=== PATIENT | female | born 1965 | race Caucasian/White ===

== ENCOUNTER → 2017-11-08 17:08 | Outpatient (REF) | payer BC, SELFPAY | LOC: NCHCN 17:08 | PROVIDERS: PCP Family Medicine; Visit Provider Physician Assistant Medical | DX: R30.0 Dysuria (principal) | CPT/HCPCS: 87086 ==

== ENCOUNTER 2017-12-08 01:54 | Outpatient (CLI) | payer MEDICAID, SELFPAY ==
--- NOTE | 2017-12-08 07:42 | DI.US_ITS ---
SYMPTOMS/DIAGNOSIS: POSTMENOPAUSAL BLEEDING, N95.0, UTERINE TENDERNESS, N94.9, EVAL ENDOMETRIUM PELVIC ULTRASOUND: Transabdominal and transvaginal exams were performed. Comparison is made with CT of the abdomen and pelvis dated . There is uterus is retroverted and measures 8.4 x 4.2 x 5.8 cm. Multiple fibroids are again noted. The overall uterine size has decreased when compared with the previous exam. The largest fibroid measures 2.7 cm in greatest dimension. There is endometrial thickening and mild endometrial irregularity. The endometrium measures 9 mm in maximal thickness. No focal abnormality is identified in the endometrium. The ovaries are normal in size. There is a 1.8 cm cyst on the left ovary which appears simple. No free fluid or hydronephrosis is seen. IMPRESSION: 1. Abnormally thickened mildly heterogeneous endometrium. 2. Multiple uterine fibroids with overall decrease when compared with a CT from 2013.
== END 2017-12-08 02:14 ==
PROVIDERS: PCP Family Medicine; Visit Provider Nurse Practitioner Women's Health
DX: N95.0 Postmenopausal bleeding (principal); D25.9 Leiomyoma of uterus, unspecified; R93.8 Abnormal findings on diagnostic imaging of other specified body structures
CPT/HCPCS: 76830; 76856

== ENCOUNTER 2017-12-22 15:31 | Outpatient (CLI) | payer MEDICAID, SELFPAY ==
[2017-12-22 16:57] LABS: HCT 43.4 % (36.0-46.0); HGB 14.1 g/dL (12.0-15.5); Mean Corp. HGB Concentration 32.5 g/dL (32.0-36.0); Mean Corpuscular Hemoglobin 28.6 pg (27.0-33.0); Mean Platelet Volume 10.2 fL (8.0-11.0); Platelet Count 244 x1000/uL (130-400); RBC 4.93 m/cumm (4.00-5.20); RBC Distribution Width 13.6 % (11.7-14.6)
== END 2017-12-22 15:51 ==
PROVIDERS: PCP Family Medicine; Visit Provider Obstetrics & Gynecology
DX: Z01.818 Encounter for other preprocedural examination (principal)
CPT/HCPCS: 36415; 85027

== ENCOUNTER 2017-12-27 06:12 | Day surgery (SDC) | payer MEDICAID, SELFPAY ==
[2017-12-27 06:28] VITALS: BP 116/74; PULSE 66; RESP 18; TEMP 36.8; O2SAT 98
[2017-12-27 06:42] VITALS: BP 116/74; PULSE 66; RESP 18; TEMP 36.8; O2SAT 98
[2017-12-27] MEDS: Lactated Ringers 1,000 ML 150 ML IV (06:56)
[2017-12-27] MEDS: Bupivacaine 0.5% Pres-Free 30 ML VIAL (08:17)
--- NOTE | 2017-12-27 08:22 | ENDOMET_PTH ---
PATIENT: Jennifer Whitfield LOC: [facility] U#:[id number] AGE/SX: 52/F ROOM: RE12/27/[address]: Marcy Chris : 1965 BED: DIS: 12/27/2017 SPEC #: [id number] RECD: 12/27/17 12:50 STATUS: EDUARDO REDanielito #: [id number] YESSENIA: 12/27/17 08:[address]: Marcy Chris DEPT: Surgical Specimen RECD BY: Cecilia Garcia ENTERED: 12/27/17 12:51 SP TYPE: Endomet OTHR DR: Nancy Jackson V Tissues: 1 - ENDOMETRIUM BX/GREGORY Procedures: GROSS AND MICRO LEVEL 4 Comments: [id number]
[2017-12-27 09:00] VITALS: BP 104/64; PULSE 61; RESP 16; TEMP 35.7; O2SAT 97
--- NOTE | 2017-12-27 09:08 | W.PM.DSUDISC ---
Discharge Plan Disposition Patient Disposition: HOME Condition: Good Discharge Details Attending Provider: Marcy Chris Primary Care Provider: Nancy Jackson V Home Meds and New Rx's Prescriptions: No Action zolpidem [Ambien] 5 MG tablet 5 mg PO HS RF: 0 gabapentin 100 MG capsule 100 mg PO HS RF: 0 cetirizine 10 MG tablet,chewable 10 mg PO DAILY RF: 0 diazepam 5 MG tablet 5 mg PO DAILY PRNRF: 0 acyclovir 200 MG capsule 1 cap PO BID RF: 0 bupropion HCl 150 MG tablet extended release 24 hr 1 tab PO DAILY RF: 0 polyethylene glycol 3350 17 GM powder in packet 17 gm PO DAILY AM PRNQty: 30 RF: 6 rizatriptan [Maxalt] 10 MG tablet 10 mg PO PRN RF: 0 Discharge Instructions Additional Instructions: DSU RECREATIONAL THERAPY AIDE Stand Alone Forms: DSU Post Gynecology Surgery Activity:: Activity as Tolerated Shower/Bathe:: 24 hours Diet:: As Tolerated
--- NOTE | 2017-12-27 09:12 | PDOC.DSDIS_ITS ---
Discharge Plan Disposition Patient Disposition: HOME Condition: Good Discharge Details Attending Provider: Marcy Chris Primary Care Provider: Nancy Jackson V Home Meds and New Rx's Prescriptions: No Action zolpidem [Ambien] 5 MG tablet 5 mg PO HS RF: 0 gabapentin 100 MG capsule 100 mg PO HS RF: 0 cetirizine 10 MG tablet,chewable 10 mg PO DAILY RF: 0 diazepam 5 MG tablet 5 mg PO DAILY PRNRF: 0 acyclovir 200 MG capsule 1 cap PO BID RF: 0 bupropion HCl 150 MG tablet extended release 24 hr 1 tab PO DAILY RF: 0 polyethylene glycol 3350 17 GM powder in packet 17 gm PO DAILY AM PRNQty: 30 RF: 6 rizatriptan [Maxalt] 10 MG tablet 10 mg PO PRN RF: 0 Discharge Instructions Additional Instructions: DSU TAX CONSULTANT Stand Alone Forms: DSU Post Gynecology Surgery Activity:: Activity as Tolerated Shower/Bathe:: 24 hours Diet:: As Tolerated
--- NOTE | 2017-12-27 14:30 | ROE_ITS ---
DATE OF PROCEDURE: December 27, 2017 PREOPERATIVE DIAGNOSIS: Post-menopausal bleeding. POSTOPERATIVE DIAGNOSIS: Same. PROCEDURE: D and C. SURGEON: Marcy Chris M.D. ANESTHESIA: Monitored Anesthesia Care and local. ESTIMATED BLOOD LOSS: Minimal. COMPLICATIONS: None. SPECIMENS: Endometrial curetting. PROCEDURE: After induction of anesthesia, the patient was prepared and draped in the dorsal lithotom y position. It took several tries to get the right speculum to be able to visualize the cervix. The cervix was grasped with the tenaculum. The cervical os was very stenotic; starting with the smalles t dilator, dilation attempts were made. I did see a lot of bloody mucus being discharged from the ut erus and cervix. I am not sure that the uterus was reached; however with cervical dilation, sharp cu rettage was done yielding a small amount of tissue. Repeated attempts at dilating the cervix further were not successful. Due to the risk of uterine perforation it was not pushed. Following the proce dure the tenaculum was removed and hemostasis was noted. Sponge and instrument counts were correct. The patient tolerated the procedure well and was returned to Day Surgery with vital signs stable.
== END 2017-12-27 09:50 | disposition home or self-care (01) ==
PROVIDERS: PCP Family Medicine; Visit Provider Obstetrics & Gynecology
PROC: (CPT 58120; principal; 2017-12-27 07:30)
DX: N95.0 Postmenopausal bleeding (principal)
CPT/HCPCS: 58120; 88305; J0131; J1100; J2250; J2405

== ENCOUNTER 2018-05-01 00:29 | Outpatient (CLI) | payer OTHER, SELFPAY ==
--- NOTE | 2018-05-01 14:58 | DI.MAMMO_ITS ---
SYMPTOMS/DIAGNOSIS: SCREENING, Z12.31, PREVENTATIVE CARE, Z00.00 MAMMOGRAM: Mammograms were interpreted according to the usual protocol including computer analysis with CAD system, tomosynthesis and C view imaging. Comparison is made with exams from 2014 through 2017. The breasts are composed of scattered fibroglandular densities, breast density Category B. No suspicious masses or suspicious microcalcifications are seen. There has been no significant change. IMPRESSION: Category I B, negative mammogram. Yearly screening mammography is recommended. [facility] ASSESSMENT OF FINDINGS: Negative. Category 1. Patient will receive a letter notifying them of these results. BI-RADS category B. There are scattered areas of fibroglandular density.
== END 2018-05-01 00:49 ==
PROVIDERS: PCP Family Medicine; Visit Provider Family Medicine
DX: Z12.31 Encounter for screening mammogram for malignant neoplasm of breast (principal)
CPT/HCPCS: 77063; 77067

== ENCOUNTER 2018-11-30 00:44 | Outpatient (CLI) | payer OTHER, SELFPAY ==
--- NOTE | 2018-11-30 14:00 | DI.COMBO_ITS ---
SYMPTOM/DIAGNOSIS: DIAGNOSTIC, RT BREAST PAIN, N64.4,RECENT MASTITIS, FAMILY H/O BREAST CA, PURPLISH DISCOLORATION RIGHT MAMMOGRAM AND RIGHT BREAST ULTRASOUND: Mammograms were interpreted according to the usual protocol including computer analysis with CAD system, tomosynthesis and C view imaging. Comparison is made with prior examinations. Breast density, Category B. No suspicious masses or microcalcifications are seen. The skin and axilla are unremarkable. Right breast ultrasound was performed. No suspicious cystic or solid masses are seen sonographically. IMPRESSION: No evidence for malignancy. Yearly mammography is recommended. Category 1. The findings were discussed with the patient and her family on the date of the examination. [facility] ASSESSMENT OF FINDINGS: Negative. Category 1. Patient will receive a letter notifying them of these results. BI-RADS category B. There are scattered areas of fibroglandular density.
== END 2018-11-30 01:04 ==
PROVIDERS: PCP Family Medicine; Visit Provider Nurse Practitioner Family
DX: N64.4 Mastodynia (principal); N61.0 Mastitis without abscess; Z80.3 Family history of malignant neoplasm of breast; N64.59 Other signs and symptoms in breast
CPT/HCPCS: 76642; 77061; 77065; G0279

== ENCOUNTER 2019-10-18 09:29 | Outpatient (REF) | payer OTHER, SELFPAY ==
[2019-10-18 20:27] LABS: Calculated LDL 125 mg/dL (<100); Cholesterol 188 mg/dL (<200); Glucose 92 mg/dL (74-106); HDL Cholesterol 46 mg/dL (40-60); TSH 2.15 uIU/mL (0.36-3.74); Triglyceride 85 mg/dL (<150)
== END 2019-10-18 09:49 ==
LOC: NCHCN 09:29
PROVIDERS: PCP Family Medicine; Visit Provider Family Medicine
DX: Z00.00 Encounter for general adult medical examination without abnormal findings (principal)
CPT/HCPCS: 80061; 82947; 84443

== ENCOUNTER 2019-12-13 02:22 | Outpatient (CLI) | payer OTHER, SELFPAY ==
--- NOTE | 2019-12-13 07:43 | DI.MAMMO_ITS ---
EXAM: MAMMO SCREENING CLINICAL HISTORY: SCREENING, [facility],Z00.00 TECHNIQUE: Mammograms were interpreted according to the usual protocol including computer analysis w [employer] CAD system, tomosynthesis and C-view imaging. COMPARISON: 2010 through 2018 FINDINGS: The breasts are composed of scattered fibroglandular densities, Breast Density category B. No suspicious masses or suspicious microcalcifications are seen. No skin thickening or abnormal axillary lymph nodes are seen. There has been no significant change from prior exams. IMPRESSION: BI-RADS Category 1, Negative mammogram Yearly screening mammography is recommended. Breast Density - Category B, scattered fibroglandular densities. A negative radiographic report should not delay biopsy if a dominant or clinically suspicious mass is present. Up to ten percent of cancers are not identified on mammography. A negative report may reinforce clinical impression. Adenosis and dense breasts may obscure an underlying neoplasm. False positive reports average 6 to 10%. Patient will receive a letter notifying them of these results.
== END 2019-12-13 02:42 ==
PROVIDERS: PCP Family Medicine; Visit Provider Family Medicine
DX: Z12.31 Encounter for screening mammogram for malignant neoplasm of breast (principal); R92.2 Inconclusive mammogram
CPT/HCPCS: 77063; 77067

== ENCOUNTER 2020-11-25 11:40 | Outpatient (REF) | payer OTHER, SELFPAY ==
[2020-11-25 19:41] LABS: Hemoglobin A1C 5.8 % (<5.7)
[2020-11-25 19:46] LABS: Anion Gap 7.9 mmol/L (3-11); BUN 25 mg/dL (7-18); CO2 27.1 mmol/L (21.0-32.0); CREATININE 0.7 mg/dL (0.55-1.02); Calcium 9.1 mg/dL (8.5-10.1); Chloride 108 mmol/L (98-107); Glucose 88 mg/dL (74-106); Potassium 4.8 mmol/L (3.5-5.1); Sodium 143 mmol/L (136-145); TSH (W/Ref FT4) 2.17 uIU/mL (0.36-3.74)
[2020-11-27 10:16] LABS: Varicella IgG Antibody Positive (See Note)
== END 2020-11-25 11:41 | disposition home or self-care (01) ==
LOC: NCHCN 11:40
PROVIDERS: PCP Family Medicine; Visit Provider Family Medicine
DX: Z00.00 Encounter for general adult medical examination without abnormal findings (principal); R63.1 Polydipsia; Z11.59 Encounter for screening for other viral diseases
CPT/HCPCS: 80048; 86787; 83036; 84443

== ENCOUNTER 2020-12-17 01:49 | Outpatient (CLI) | payer OTHER, SELFPAY ==
--- NOTE | 2020-12-17 | DI.MAMMO_ITS ---
Exam(s) MAMMO SCREENING EXAM: MAMMO SCREENING CLINICAL HISTORY: SCREENING, [facility], Z00.00 TECHNIQUE: Bilateral full field digital CC and MLO mammographic images were obtained with 3D tomosyn thesis and utilizing computer aided detection (CAD). COMPARISON: Available for comparison. FINDINGS: Masses/Architectural Distortion: None seen. There has been no change in appearance of the well-circum scribed left retroareolar nodule. Microcalcifications: No suspicious pleomorphic-type are seen. Skin Thickening/Nipple Retraction: None. IMPRESSION: 1. No significant interval change with no specific features of malignancy noted. 2. Unless there is more urgent need, screening mammography is recommended, as per [employer] guidelines. BI-RADS Category 1 - Negative Breast Density - Category B - Scattered areas of fibroglandular density Breast density category C or D implies that the patient has dense breast tissue. Dense breast tissue is very common and is not abnormal but dense breast tissue can make it harder to find cancer on a ma mmogram. Also, dense breast tissue may increase their breast cancer risk. This information about the result of the mammogram report was provided to the patient to raise their awareness. Use this report when you speak with the patient about their risks for breast cancer, which includes their family hist ory. At that time, you may recommend for more screening tests (Ultrasound or MRI) as they might be us eful based on their risk. A negative radiographic report should not delay biopsy if a dominant or clinically suspicious mass is present. Up to ten percent of cancers are not identified on mammography. A negative report may reinforce clinical impression. Adenosis and dense breasts may obscure an underlying neoplasm. False positive reports average 6 to 10%. Patient will receive a letter notifying them of these results.
== END 2020-12-17 02:09 ==
PROVIDERS: PCP Family Medicine; Visit Provider Family Medicine
DX: Z12.31 Encounter for screening mammogram for malignant neoplasm of breast (principal)
CPT/HCPCS: 77063; 77067

== ENCOUNTER 2021-11-26 18:07 | Outpatient (REF) | payer OTHER, SELFPAY ==
[2021-11-26 15:59] LABS: Hemoglobin A1C 5.9 % (<5.7)
[2021-11-26 16:03] LABS: Anion Gap 8.6 mmol/L (3-11); BUN 25 mg/dL (7-18); C-Reactive Protein 0.68 mg/dL (0.0-0.3); CO2 28.4 mmol/L (21.0-32.0); CREATININE 0.8 mg/dL (0.55-1.02); Calcium 8.8 mg/dL (8.5-10.1); Chloride 105 mmol/L (98-107); Glucose 91 mg/dL (74-106); Potassium 4.6 mmol/L (3.5-5.1); Sodium 142 mmol/L (136-145); TSH (W/Ref FT4) 1.96 uIU/mL (0.36-3.74)
[2021-11-26 16:09] LABS: HCT 43.5 % (36.0-46.0); HGB 14.2 g/dL (11.2-15.7); MCH 28.2 pg (27.0-33.0); MCHC 32.6 % (32.0-36.0); MCV 86 fL (80-95); MPV 10.4 fL (8.0-11.0); Platelet Count 224 10^3/uL (130-400); RBC 5.04 10^6/uL (3.93-5.22); RDW 12.8 % (11.7-14.6); RDW-SD 40.3 fL; WBC 4.81 10^3/uL (4.4-10.8)
[2021-11-26 17:06] LABS: ESR 6 mm/hr (0-30)
[2021-11-26 22:04] LABS: Rheumatoid Factor <8.6 IU/mL (<12.0)
[2021-11-27 14:47] LABS: ANA Interpretation Negative (Negative)
== END 2021-11-26 18:08 | disposition home or self-care (01) ==
LOC: NCHCN 18:07
PROVIDERS: PCP Family Medicine; Visit Provider Family Medicine
DX: R05.9 Cough, unspecified (principal); J30.9 Allergic rhinitis, unspecified; M25.50 Pain in unspecified joint
CPT/HCPCS: 80048; 85027; 85652; 83036; 84443; 86038; 86140; 86431

== ENCOUNTER → 2021-12-23 01:46 | Outpatient (CLI) | payer OTHER, SELFPAY ==
--- NOTE | 2021-12-23 | DI.MAMMO_ITS ---
Exam(s) MAMMO SCREENING EXAM: MAMMO SCREENING CLINICAL HISTORY: SCREENING FOR BREAST CANCER Z12.31. TECHNIQUE: Bilateral full field digital CC and MLO mammographic images were obtained with 3D tomosyn thesis and utilizing computer aided detection (CAD). COMPARISON: Prior mammograms were reviewed, the most recent being December 2020. FINDINGS: There has been no significant change in the appearance and distribution of the fibroglandular tissue. No new significant findings in the right breast. In the left breast there is again noted a 5 millimeter round noncalcified nodule located 2.5 cm in fr om the nipple, unchanged from prior recent studies dating back to 2018. This was not evident in 2015 No malignant-appearing microcalcification groups in this region or elsewhere in either breast There is no significant architectural distortion nor skin thickening-retraction. IMPRESSION: 1. No radiographic evidence of malignancy in right breast. 2. Stable benign appearing round 5 millimeter nodule in the anterior left breast, unchanged from 201 9. Therefore most probably benign. Recommend follow-up ultrasound to determine if this is solid or cystic. BI-RADS Category 0 - Assessment Incomplete: Need additional imaging evaluation Breast Density - Category B - Scattered areas of fibroglandular density Breast density Category C or D implies that the patient has dense breast tissue. Dense breast tissue can make it harder to find cancer on a mammogram. Dense breast tissue is also associated with an incr eased risk of breast cancer. This information about the result of the mammogram report was provided to the patient to raise their awareness. Use this report when you speak with the patient about their risks for breast cancer, which includes their family history. At that time, you may recommend additional screening tests (Ultrasoun d or MRI) as these tests may add significant information. A negative radiographic report should not delay biopsy if a dominant or clinically suspicious mass is present. Up to ten percent of cancers are not identified on mammography. A negative report may reinforce clinical impression. Adenosis and dense breasts may obscure an underlying neoplasm. False positive reports average 6 to 10%. Patient will receive a letter notifying them of these results.
== END ==
PROVIDERS: PCP Family Medicine; Visit Provider Family Medicine
DX: Z12.31 Encounter for screening mammogram for malignant neoplasm of breast (principal); R92.8 Other abnormal and inconclusive findings on diagnostic imaging of breast
CPT/HCPCS: 77063; 77067

== ENCOUNTER 2021-12-24 05:10 | Emergency (ER) | payer OTHER, SELFPAY ==
[2021-12-24 05:14] VITALS: BP 159/103; PULSE 82; RESP 18; TEMP 36.6; O2SAT 98
[2021-12-24 05:43] LABS: Abs Immature Grans 0.01 10^3/uL (0.0-0.06); Absolute Basophil Count 0.02 10^3/uL (0.0-0.2); Absolute Eosinophil Count 0.14 10^3/uL (0.0-0.7); Absolute Lymphocyte Count 1.53 10^3/uL (1.2-3.4); Absolute Monocyte Count 0.49 10^3/uL (0.1-0.8); Absolute Neutrophil Count 3.55 10^3/uL (1.2-6.7); Basophils % 0.3; Eosinophils % 2.4; HCT 45.4 % (36.0-46.0); Immature Grans % 0.2; Lymphocytes % 26.7; MCH 28.1 pg (27.0-33.0); MCV 85 fL (80-95); MPV 9.5 fL (8.0-11.0); Monocytes % 8.5; Neutrophils % 61.9; Platelet Count 254 10^3/uL (130-400); RBC 5.33 10^6/uL (3.93-5.22); RDW 12.9 % (11.7-14.6); RDW-SD 39.8 fL; WBC 5.74 10^3/uL (4.4-10.8)
--- NOTE | 2021-12-24 05:45 | DI.CT_ITS ---
Exam(s) CT RENAL COLIC WO EXAM: CT RENAL COLIC WO CLINICAL HISTORY: R flank pain, r/o kidney stone. TECHNIQUE: Imaging Protocol: Axial computed tomography images with coronal and sagittal reformatted images were created and reviewed. CONTRAST MATERIAL: Noncontrast COMPARISON: CT ABD PELVIS WITH CONTRAST from 08/28/2013 FINDINGS: ABDOMEN: Lung Bases: Normal where visualized. Liver: Normal attenuation. No measurable mass. Gallbladder and biliary tract: No radiodense calculus or dilation. Pancreas: Normal density, no calcifications or inflammatory process. Spleen: Normal. Kidneys: The right kidney is mildly atrophic and shows small multi focal scarring. No radiodense sto hawk or obstructive uropathy. No masses seen. Adrenal glands: No masses seen. Abdominal Aorta: Abdominal portion non-dilated. PELVIS: Bladder: Symmetric distention, no gross wall thickening. No evidence of stones.No visible mass. Bowel: Sigmoid anastomosis, unremarkable. No obstruction or bowel wall thickening. Moderate quantit y of stool. Diverticulosis. Reproductive: Retroflexed uterus with several fibroids. Stable small left ovarian cyst. Peritoneal cavity: No ascites, collection or mesenteric inflammatory response. Bones: Unremarkable for age.. IMPRESSION: No acute abnormality. Mildly atrophic right kidney with areas of scarring. Unremarkable sigmoid davina stomosis.Diverticulosis without evidence of diverticulitis. RADIATION DOSE DELIVERED: 928.48mGy.cm Total DLP DATA REPOSITORY: All CT scans at this facility are submitted to the National Radiology Data Registry (NRDR) Dose Index Registry (DIR) with the [employer] (A[employer]). RADIATION OPTIMIZATION: All CT scans at this facility use at least one of these dose optimization te chniques: automated exposure control; mA and/or kV adjustment per patient size (includes targeted exa ms where dose is matched to clinical indication); or iterative reconstruction.
[2021-12-24 05:47] LABS: Bilirubin Negative (Negative); Blood Negative (Negative); Clarity Clear (Clear); Glucose Negative (Negative); Ketones Negative (Negative); Leukocyte Esterase Trace (Negative); Nitrite Negative (Negative); Specific Gravity 1.025 (1.005-1.025); Urobilinogen 0.2 EU/dL (Up TO 0.2); pH 5.5 (5-8)
[2021-12-24] MEDS: Normal Saline 1,000 ML 1000 ML IV (05:52)
[2021-12-24] MEDS: Ondansetron 4 MG/2 ML VIAL IVP (05:52)
[2021-12-24] MEDS: Ketorolac 30 MG/ML VIAL IVP (05:54)
[2021-12-24 05:56] LABS: Bacteria Rare HPF (Negative); C & S Indicated? Yes; Casts 0-2 Hyaline LPF (Negative); Crystals Negative HPF (Negative); Epithelial Cells Rare HPF (Negative); Mucus Negative (Negative); Other Cells Rare Renal (Negative); RBC 0-2 HPF (0-2)
[2021-12-24 05:58] LABS: ALT 21 U/L (14-59); AST 12 U/L (15-37); Albumin 4.1 g/dL (3.4-5.0); Alkaline Phosphatase 144 U/L (46-116); Anion Gap 8.9 mmol/L (3-11); BUN 23 mg/dL (7-18); Bilirubin, Total 0.3 mg/dL (0.2-1.0); CO2 27.1 mmol/L (21.0-32.0); CREATININE 0.9 mg/dL (0.55-1.02); Calcium 9.4 mg/dL (8.5-10.1); Chloride 105 mmol/L (98-107); Glucose 109 mg/dL (74-106); Potassium 4.1 mmol/L (3.5-5.1); Sodium 141 mmol/L (136-145); Total Protein 7.3 g/dL (6.4-8.2)
--- NOTE | 2021-12-24 06:06 | W.ED.GENAD ---
Discharge Plan Disposition Patient Disposition: HOME Condition: Stable Discharge Details Clinical Impression: Right flank pain, UTI (urinary tract infection) Primary Care Provider: Nancy Jackson V ED Provider: Aubrey Hopper Home Meds and New Rx's Prescriptions: New cephalexin 500 mg capsule 500 mg PO TID 7 Days Qty: 21 0RF tamsulosin [Flomax] 0.4 mg capsule 0.4 mg PO DAILY PRN (Reason: flank pain) Qty: 3 0RF Continued cetirizine 10 MG tablet,chewable 10 mg PO DAILY acyclovir 200 MG capsule 1 cap PO BID bupropion HCl 150 MG tablet extended release 24 hr 1 tab PO DAILY Label Comments: polyethylene glycol 3350 17 GM powder in packet 17 gm PO DAILY AM PRNQty: 30 6RF rizatriptan [Maxalt] 10 MG tablet 10 mg PO PRN Discharge Instructions Instructions: Flank Pain (ED), Urinary Tract Infection in Women (ED) Additional Instructions: Continue to liberally hydrate with small, frequent sips of fluids. Take antibiotics as prescribed until finished. Return for worsening pain, development of fever, or any other acute concerns. Continue your regularly prescribed medications. Medical Decision Making <Ernestina Dillard DO - Last Filed: 12/24/21 07:24> 0530 -- 56-year-old female with a history of kidney stones and diverticulitis with colon resection presents with right-sided flank pain for the past 7 days, worse since last night while getting out of the car and much worse since 2 AM this morning. Also admits to nausea Patient appears uncomfortable but nontoxic. She has no CVA tenderness. Her abdomen is soft and nontender. Differential diagnosis includes kidney stone, muscle strain, sciatica, appendicitis, UTI. We will place an IV, bolus IV fluids, screening labs, urinalysis, CT renal colic and will give a dose of IV Toradol and zofran and reassess. 0640 --labs reviewed. Normal white blood cell count. Normal renal function. Urinalysis notes 5-10 WBCs and trace leukocyte esterase. Urine culture sent. Patient reassessed and she states she feels better. Pain decreased from 8/10-4/10. She is declining any additional pain medicines at this time. 0730 -- case to Dr. Hopper to follow-up on CT imaging and final disposition. Medical Records Medical records reviewed: Yes I reviewed the patient's medical records. <Aubrey Hopper MD - Last Filed: 12/24/21 08:11> Medical Records Medical records narrative: Received signout from Dr. Dillard. Please see her note regarding details of the initial presentation, exam and plan of care. Patient's laboratories noted a white count of 5, reassuring chemistries, and urinalysis with leuk esterase, white blood cells, bacteria, but rare epithelial cells and culture pending. CT scan showed no acute abnormality. There is no evidence of ureteral lithiasis. Mild atrophic right kidney noted. Discussed with patient this may represent a recently passed stone, or urinary tract infection. Given ceftriaxone we will place her on a course of Keflex. She may use Flomax if needed as needed for ureteral spasm. Lab Data Lab results reviewed: Yes I reviewed the patient's lab results. Labs: Laboratory Results - last 24 hr 12/24/21 12/24/21 12/24/21 05:20 05:30 05:30 WBC 5.74 RBC 5.33 H Hgb 15.0 Hct 45.4 MCV 85 MCH 28.1 MCHC 33.0 RDW 12.9 Plt Count 254 MPV 9.5 Immature Gran % 0.2 Neutrophils % 61.9 Lymphocytes % 26.7 Monocytes % 8.5 Eosinophils % 2.4 Basophils % 0.3 Nucleated RBC % 0.0 Absolute Neutrophils 3.55 Absolute Lymphocytes 1.53 Absolute Monocytes 0.49 Absolute Eosinophils 0.14 Absolute Basophils 0.02 Sodium 141 Potassium 4.1 Chloride 105 Carbon Dioxide 27.1 Anion Gap 8.9 BUN 23 H Creatinine 0.9 Est GFR (CKD-EPI 2020) 74.10 Glucose 109 H Calcium 9.4 Total Bilirubin 0.3 AST 12 L ALT 21 Alkaline Phosphatase 144 H Total Protein 7.3 Albumin 4.1 Urine Color Yellow Urine Clarity Clear Urine pH 5.5 Ur Specific [place] 1.025 Urine Protein Negative Urine Ketones Negative Urine Blood Negative Urine Nitrite Negative Urine Bilirubin Negative Urine Urobilinogen 0.2 Ur Leukocyte Esterase Trace H Urine RBC 0-2 Urine WBC 5-10 Ur Epithelial Cells Rare Urine Crystals Negative Urine Bacteria Rare Urine Casts 0-2 Hyaline Urine Mucus Negative Urine Other Rare Renal Ur Culture Indicated? Yes Urine Glucose Negative HPI <Ernestina Dillard DO - Last Filed: 12/24/21 07:24> General Mode of arrival: ambulatory. Date/Time Provider Initiated Documentation: 12/24/21 05:32. Limitations to Documentation: no limitations. Information obtained by: patient. HPI Narrative: Pt is a 56yo F with a history of kidney stones and diverticulitis with bowel resection presents with right-sided flank pain for the past 7 days, worse since this last night while trying to get out of a car and much worse since 2 AM this morning. Patient states when she got home last night she took Tylenol and ibuprofen and was able to sleep for approximately 6 hours but then woke up at 2 AM with worsening pain. She states she has been able to have a bowel movement with MiraLAX which was loose. She does admit to nausea but denies any fever, vomiting or urinary symptoms. She did note that her urine was dark yellow last night but more clear this morning. Related Data Home Medications Medication Instructions Recorded Confirmed acyclovir 200 mg capsule 1 cap PO BID 01/22/13 12/24/21 bupropion HCl 150 mg 24 hr tablet, 1 tab PO DAILY 01/22/13 12/24/21 extended release polyethylene glycol 3350 17 gram 17 gm PO DAILY AM PRN #30 packets 01/22/13 12/24/21 oral powder packet rizatriptan 10 mg tablet (Maxalt) 10 mg PO PRN 08/28/13 12/24/21 cetirizine 10 mg chewable tablet 10 mg PO DAILY 01/23/16 12/24/21 cephalexin 500 mg capsule 500 mg PO TID 7 days #21 caps 12/24/21 tamsulosin 0.4 mg capsule (Flomax) 0.4 mg PO DAILY PRN flank pain #3 12/24/21 caps Previous Rx's Medication Instructions Recorded polyethylene glycol 3350 17 gram 17 gm PO DAILY AM PRN #30 packets 01/22/13 oral powder packet cephalexin 500 mg capsule 500 mg PO TID 7 days #21 caps 12/24/21 tamsulosin 0.4 mg capsule (Flomax) 0.4 mg PO DAILY PRN flank pain #3 12/24/21 caps Allergies Allergy/AdvReac Type Severity Reaction Status Date / Time codeine Allergy Unknown chest pain Unverified 12/24/21 05:15 / sob hydrocodone [From Vicodin] Allergy Unknown CHEST Unverified 12/24/21 05:15 PAIN, DIFFICULTY BREATHING oxycodone HCl [From Percocet] Allergy Unknown chest Unverified 12/24/21 05:15 pain,difficulty breathing propoxyphene napsylate Allergy Unknown chest Unverified 12/24/21 05:15 [From Darvocet-N 100] pain,difficulty breathing azithromycin AdvReac Intermediate GI Upset Unverified 12/24/21 05:15 General Stated Complaint: FlankPain YULI: 3 Review of Systems <Ernestina Dillard DO - Last Filed: 12/24/21 07:24> All systems reviewed & are unremarkable except as noted in HPI and below Constitutional Constitutional: Reports as per HPI, Denies chills and Denies fever(s) Eyes Eyes: Denies blurry vision ENT Ears, Nose, Mouth, and Throat: Denies dizziness, Denies sore throat and Denies throat swelling Cardiovascular Cardiovascular: Denies chest pain and Denies dyspnea Respiratory Respiratory: Denies cough and Denies dyspnea Gastrointestinal Gastrointestinal: Reports abdominal pain, Denies diarrhea, Reports nausea and Denies vomiting Genitourinary Genitourinary: Denies hematuria, Denies dysuria and Reports flank pain Musculoskeletal Musculoskeletal: Denies back pain and Denies numbness Integumentary/Breasts Skin/Breast: Denies lesions and Denies rash Neurologic Neurologic: Denies dizziness, Denies localized weakness and Denies numbness Allergic/Immunologic Allergic/Immunologic: Denies throat swelling PFSH <Ernestina Dillard DO - Last Filed: 12/24/21 07:24> All Active Problems (Updated 12/24/21 @ 08:09 by Aubrey Hopper MD) Right flank pain (Acute) UTI (urinary tract infection) (Acute) Postmenopausal postcoital bleeding (Acute) Myofascial pain dysfunction syndrome (Acute) Recurrent herpes simplex (Acute) Irritable bowel syndrome (Chronic) Fibromyalgia (Acute) Diverticula of colon (Acute) Depression (Chronic) Temporomandibular joint disorders, unspecified (Acute 02/26/13) Post-menopausal bleeding (Acute 11/17/17) Stenotic cervical office precluded endometrial biopsy in the office and successful D&C. Ectropion has contact bleeding. Endometrial stripe thickened at 8 mm Numbness of foot (Acute 01/10/14) Adhesive capsulitis of left shoulder (Acute 01/23/16) Medical History (Updated 12/24/21 @ 08:09 by Aubrey Hopper MD) Depression Diverticula of colon Fibromyalgia IBS (irritable bowel syndrome) Migraine Myofascial pain syndrome Recurrent herpes simplex Surgical History Colectomy For Diverticulitis Hx of dilation and curettage 12/27/2017 for postmenopausal bleeding. No endometrial cells obtained. Family History Maternal Aunt Breast cancer Social History (Updated 02/07/18 @ 07:32 by Elizabeth Camilo MD) Smoking/Tobacco Use Status: Former Tobacco Use Smoking risk assessment performed?: Yes Alcohol Intake: never Drug use: Never Substance use type: does not use Number of Children: 3 Seatbelt use: always Do you feel safe at home: Yes Do you feel safe in your relationship?: Yes Female Reproductive History Menstrual Age of Menarche: 50 Menopause type: natural History History 3 Para Hx # Term Pregnancies 2 Multiple births Hx # Pregnancies Ectopic pregnancies AB induced Hx Number of Living Children AB spontaneous Exam <Ernestina Dillard DO - Last Filed: 12/24/21 07:24> Const General: cooperative, uncomfortable and no acute distress Orientation: alert, awake and oriented x3 HENMT Head: normal to inspection Mouth: oral mucosae normal Eyes General: appearance normal, both eyes and all related structures Neck Neck: normal visual inspection Resp Effort & Inspection: normal respiratory effort and able to speak in complete sentences Auscultation: clear to auscultation bilaterally Cardio Rate: regular rate Rhythm: regular rhythm GI Palpation: soft, not firm, no guarding, not rigid and nontender Auscultation: hypoactive bowel sounds Back/Spine/Pelvis Back: no CVA tenderness Skin General skin exam: no rashes or lesions noted Neuro General: patient alert, patient awake and patient oriented x3 Motor: muscle tone normal throughout Extrem General: normal to inspection and full ROM Other: B/L DP/PT pulses intact. Psych Appearance: grossly normal Affect: normal affect Course <Ernestina Dillard DO - Last Filed: 12/24/21 07:24> Vital Signs Vital signs: Vital Signs Temperature 97.8 F 12/24/21 05:14 Pulse 82 12/24/21 05:14 Respiratory Rate 18 12/24/21 05:14 Blood Pressure 159/103 H 12/24/21 05:14 Pulse Oximetry 98 12/24/21 05:14 Temperature 97.8 F 12/24/21 05:14 Temperature Source Oral 12/24/21 05:14 Pulse 82 12/24/21 05:14 Respiratory Rate 18 12/24/21 05:14 Respiratory Effort Non-Labored 12/24/21 05:34 Blood Pressure 159/103 H 12/24/21 05:14 Pulse Oximetry 98 12/24/21 05:14 Pain Level 8 12/24/21 05:54 Lab/Test Results Lab/Test Results: 12/24/21 05:20 Urine - Reflex from Ua Urine Culture - Pending Laboratory Tests Range/Units 12/24/21 12/24/21 12/24/21 05:20 05:30 05:30 WBC (4.4-10.8) 10^3/uL 5.74 RBC (3.93-5.22) 10^6/uL 5.33 H Hgb (11.2-15.7) g/dL 15.0 Hct (36.0-46.0) % 45.4 MCV (80-95) fL 85 MCH (27.0-33.0) pg 28.1 MCHC (32.0-36.0) % 33.0 RDW (11.7-14.6) % 12.9 Plt Count (130-400) 10^3/uL 254 MPV (8.0-11.0) fL 9.5 Immature Gran % 0.2 Neutrophils % 61.9 Lymphocytes % 26.7 Monocytes % 8.5 Eosinophils % 2.4 Basophils % 0.3 Nucleated RBC % (0.0-0.3) % 0.0 Absolute Neutrophils (1.2-6.7) 10^3/uL 3.55 Absolute Lymphocytes (1.2-3.4) 10^3/uL 1.53 Absolute Monocytes (0.1-0.8) 10^3/uL 0.49 Absolute Eosinophils (0.0-0.7) 10^3/uL 0.14 Absolute Basophils (0.0-0.2) 10^3/uL 0.02 Sodium (136-145) mmol/L 141 Potassium (3.5-5.1) mmol/L 4.1 Chloride (98-107) mmol/L 105 Carbon Dioxide (21.0-32.0) mmol/L 27.1 Anion Gap (3-11) mmol/L 8.9 BUN (7-18) mg/dL 23 H Creatinine (0.55-1.02) mg/dL 0.9 Est GFR (CKD-EPI 2020) (mL/min/1.73m2) 74.10 Glucose (74-106) mg/dL 109 H Calcium (8.5-10.1) mg/dL 9.4 Total Bilirubin (0.2-1.0) mg/dL 0.3 AST (15-37) U/L 12 L ALT (14-59) U/L 21 Alkaline Phosphatase (46-116) U/L 144 H Total Protein (6.4-8.2) g/dL 7.3 Albumin (3.4-5.0) g/dL 4.1 Urine Color (Yellow) Yellow Urine Clarity (Clear) Clear Urine pH (5-8) 5.5 Ur Specific [place] (1.005-1.025) 1.025 Urine Protein (Negative) mg/dL Negative Urine Ketones (Negative) mg/dL Negative Urine Blood (Negative) Negative Urine Nitrite (Negative) Negative Urine Bilirubin (Negative) Negative Urine Urobilinogen (Up TO 0.2) EU/dL 0.2 Ur Leukocyte Esterase (Negative) Trace H Urine RBC (0-2) HPF 0-2 Urine WBC (0-5) HPF 5-10 Ur Epithelial Cells (Negative) HPF Rare Urine Crystals (Negative) HPF Negative Urine Bacteria (Negative) HPF Rare Urine Casts (Negative) LPF 0-2 Hyaline Urine Mucus (Negative) Negative Urine Other (Negative) Rare Renal Ur Culture Indicated? Yes Urine Glucose (Negative) mg/dL Negative Sign Out <Ernestina Dillard DO - Last Filed: 12/24/21 07:24> Sign Out Data: Sign Out Comment: Right flank pain for 7 days, worse this morning. Pending CT results and final disposition. Last updated by Ernestina Dillard DO at 12/24/21 07:09
--- NOTE | 2021-12-24 07:39 | DI.VRAD_ITS ---
PROCEDURE INFORMATION: Exam: CT Abdomen And Pelvis Without Contrast Exam date and time: 12/24/2021 6:14 AM Age: 56 years old Clinical indication: Abdominal pain; Flank; Right; Prior surgery; Surgery date: 6+ months; Surgery type: 2006 section of bowel removed; Additional info: Right flank pain, onset 6 days prior TECHNIQUE: Imaging protocol: Computed tomography of the abdomen and pelvis without contrast. Radiation optimization: All CT scans at this facility use at least one of these dose optimization techniques: automated exposure control; mA and/or kV adjustment per patient size (includes targeted exams where dose is matched to clinical indication); or iterative reconstruction. COMPARISON: US PELVIS TRANSVAGINAL 12/08/2017 8:19 PM FINDINGS: Lungs: Minimal dependent hypoventilatory changes. No pleural effusions. Liver: Unremarkable. Gallbladder and bile ducts: Unremarkable. No calcified gallstones. No intrahepatic or extrahepatic biliary ductal dilation. Pancreas: Unremarkable. Spleen: Unremarkable. The spleen is normal in size. Adrenal glands: Unremarkable. Kidneys and ureters: The right kidney is mildly atrophic with multiple foci of cortical thinning/scarring. There is no hydronephrosis or hydroureter. No calcifications are identified in the kidneys or ureters. There is no perinephric fat stranding or perinephric collection. Stomach and bowel: The stomach is nondilated. The small and large bowel are normal in caliber. Postsurgical changes from previous partial colectomy are noted, with a colocolonic anastomosis in the sigmoid. No mural thickening or other inflammatory changes are noted in the bowel. Appendix: A nondilated appendix is identified. Intraperitoneal space: Unremarkable. No ascites, fluid collection, or pneumoperitoneum. Retroperitoneal space: Unremarkable. No retroperitoneal collection or mass. Vasculature: Minimal atherosclerotic calcification. Normal caliber abdominal aorta. Lymph nodes: No pathologically enlarged lymph nodes. Urinary bladder: Unremarkable. Reproductive: A 2 cm cystic structure in the left adnexa correlates to a small simple left ovarian cyst on the comparison ultrasound and has not significantly changed in size. Retroverted myomatous uterus. Bones/joints: Degenerative changes. No suspicious osseous lesions. Soft tissues: Tiny fat-containing umbilical hernia. IMPRESSION: 1. No acute abnormality in the abdomen or pelvis. No evidence of urolithiasis or obstructive uropathy. 2. Mildly atrophic right kidney with foci of cortical scarring. 3. Additional stable chronic and incidental/nonemergent findings are discussed in the body of the report. Dictated and Authenticated by: Ama Márquez MD. Ordering:SERG oD MD
[2021-12-24 07:57] VITALS: BP 115/72; PULSE 63; RESP 16; TEMP 36.4; O2SAT 100
== END 2021-12-24 09:14 | disposition home or self-care (01) ==
PROVIDERS: Physician Assistant; Emergency Provider Emergency Medicine; PCP Family Medicine
DX: N39.0 Urinary tract infection, site not specified (principal); N26.1 Atrophy of kidney (terminal); Z87.891 Personal history of nicotine dependence; Z87.442 Personal history of urinary calculi; Z87.19 Personal history of other diseases of the digestive system; Z90.49 Acquired absence of other specified parts of digestive tract
CPT/HCPCS: 36415; 80053; 96361; 96365; 96375; 99284; 74176; 81003; 81015; 85025; 87086; J0696; J1885; J2405

== ENCOUNTER → 2022-12-29 00:24 | Outpatient (CLI) | payer OTHER, SELFPAY ==
--- NOTE | 2022-12-29 | DI.MAMMO_ITS ---
Exam(s) MAMMO SCREENING EXAM: MAMMO SCREENING CLINICAL HISTORY: SCREENING, Z12.31, HEALTH CARE,Z00.00 TECHNIQUE: Bilateral full field digital CC and MLO mammographic images were obtained with 3D tomosyn thesis and utilizing computer aided detection (CAD). COMPARISON: Available for comparison. FINDINGS: Masses/Architectural Distortion: There is a stable nodule in the retroareolar region of the left [address]. No suspicious masses or architectural distortion is seen. Microcalcifications: No suspicious pleomorphic-type are seen. Skin Thickening/Nipple Retraction: None. IMPRESSION: 1. No significant interval change with no specific features of malignancy noted. 2. Unless there is more urgent need, screening mammography is recommended, as per [employer] guidelines. BI-RADS Category 2 - Benign Findings Breast Density - Category B - Scattered areas of fibroglandular density Breast density category C or D implies that the patient has dense breast tissue. Dense breast tissue is very common and is not abnormal but dense breast tissue can make it harder to find cancer on a ma mmogram. Also, dense breast tissue may increase their breast cancer risk. This information about the result of the mammogram report was provided to the patient to raise their awareness. Use this report when you speak with the patient about their risks for breast cancer, which includes their family hist ory. At that time, you may recommend for more screening tests (Ultrasound or MRI) as they might be us eful based on their risk. A negative radiographic report should not delay biopsy if a dominant or clinically suspicious mass is present. Up to ten percent of cancers are not identified on mammography. A negative report may reinforce clinical impression. Adenosis and dense breasts may obscure an underlying neoplasm. False positive reports average 6 to 10%. Patient will receive a letter notifying them of these results.
== END ==
PROVIDERS: PCP Family Medicine; Visit Provider Family Medicine
DX: Z12.31 Encounter for screening mammogram for malignant neoplasm of breast (principal)
CPT/HCPCS: 77063; 77067

== ENCOUNTER 2024-05-04 10:54 | Outpatient (REF) | payer OTHER, SELFPAY ==
--- NOTE | 2024-05-04 08:05 | PAPFT_PTH ---
PATIENT: Jennifer Whitfield LOC: [facility]#:[id number] AGE/SX: 58/F ROOM: RE05/04/[address]: Nancy Jackson V : 1965 BED: DIS: 05/04/2024 SPEC #: [id number] RECD: 05/07/24 13:11 STATUS: EDUARDO BEDOLLA #: [id number] YESSENIA: 05/04/24 08:[address]: Nancy Jackson V DEPT: [facility] Cytology RECD BY: Cecilia Garcia Tissues: 1 - CX/ENDOCX FOR PAP SMEARS Procedures: PAP THIN PREP/[facility] Screening HPV DNA PROBE Comments: [id number] (HPV 16 & 18/45)
--- OUTSIDE RECORDS SUMMARY | 2024-05-04 11:06 | XMS_ITS | Encounter Summary ---
Author Organization [facility] [place] [address] Care Team Providers Care Single Pointed Operator Name Role Phone Nancy Jackson MD Primary Care Provider [phone] Reason for Referral * Consultation (Routine) - Closed Specialty Diagnoses / Procedures Referred By Andrew hoff Referred To Contact Obstetrics and Gynecology Diagnoses Other urinary incontinence Beatriz Tovar MD [facility] OBSTETRICS [place] [address] [facility] [address] [place] [address] Referral ID Status Reason Start Date Expiration Date V isits Requested Visits Authorized [id number] Closed Consult, Test & Treat 09/20/2018 09/20/2019 1 1 Reason for Visit * Reason Comments Follow-up Encounter Details Date Type Department Care Team (Late st Contact Info) Description 09/20/2018 8:45 AM EDT Office Visit Obstetrics [place] [phone] Beatriz Tovar MD [facility] OBSTETRICS [place] [address] Other urinary incontinence Social History Tobacco Use Types Packs/Day Years Used Date Smoking Tobacco: Former Smokeless Tobacco: Never Alcohol Use Standard Drinks/Week Comments No 0 (1 standard drink = 0.6 oz pur e alcohol) Sex and Gender Information Value Date Recorded Sex Assigned at Not on file Gender Identity Not on file Sexual Orientation Not on file documented as of this encounter Last Filed Vital Signs Vital Sign Reading Time Taken Comments Blood Pressure 119/64 09/20/2018 8:29 AM EDT Pulse 73 09/20/2018 8:29 AM EDT Temperature 36.2 ??C (97.2 ??F) 09/20/2018 8:29 AM ED T Respiratory Rate 16 09/20/2018 8:29 AM EDT Oxygen Saturation 99% 09/20/2018 8:29 AM EDT Inhaled Oxygen Concentration - - Weight 92.8 kg (204 lb 9.6 oz) 09/20/2018 8:29 A M EDT Height 161.3 cm (5' 3.5) 09/20/2018 8:29 AM EDT Body Mass Index 35.67 09/20/2018 8:29 AM EDT documented in this encounter Progress Notes * Beatriz Tovar MD - 09/20/2018 8:45 AM EDT 09/20/18 Follow-up HPI: Jennifer Whitfield is a 53 y.o. female presenting for f/u incontience . - 05/12/18 underwent US guided HSC, D&C for PMB with several benign polyps removed. This was after a failed attempt at office bx and failed attempt at D&C at OSH - reports no further bleeding - at f/u noted urinary incontinence, getting up 2-3x at night to go to bathroom, leak with cough/sneeze and with urgency. Wearing poise pads. Doing kegels. Has done PT but not pelvic PT in the past. Most bothersome is getting up at night. UA was neg. Plan made to avoid food/drink x 2-3 hours prior to bed. Trial of ditropan short acting qHS. RTO 3 mos for f/u. - if above ineffective consider pelvic PT, bladder training, avoidance irritants, and concentratingfood/drink earlier in day When I first tried the medicine for a couple days did not get up, and then after a couple of days, then upped the med. 2 at night. Didn't know if I should do it during the day. Having urgency during the day too. Went to bed at 8, was up at 10:30. 2am again, not as bad, but still Review of systems: Except as noted, comprehensive review of systems was negative. Patient Active Problem List Diagnosis Code ??? Migraine G43.909 ??? Depression F32.9 ??? Diverticulitis of large intestine with perforation K57.20 ??? Plantar fasciitis M72.2 ??? Genital HSV A60.00 ??? Environmental allergies Z91.09 ??? Myofascial pain M79.18 ??? Postmenopausal bleeding N95.0 FAMILY HISTORY family history includes Breast Cancer in her maternal aunt; Cancer in her father. Allergies Allergen Reactions ??? Codeine Hard time breathing and chest pains ??? Darvocet A500 [Propoxyphene N-Acetaminophen] Shortness Of Breath ??? Percocet [Oxycodone-Acetaminophen] Hard time Breathing and chest pains ??? Vicodin [Hydrocodone-Acetaminophen] Hard time breathing and chest pains ??? Azithromycin GI Upset No outpatient medications have been marked as taking for the 09/20/18 encounter (Appointment) with Beatriz Tovar MD. Wt Readings from Last 3 Encounters: 06/19/18 91.6 kg (201 lb 14.4 oz) 05/12/18 89.8 kg (197 lb 14.4 oz) 04/03/18 92.4 kg (203 lb 11.2 oz) There is no height or weight on file to calculate BMI. There were no vitals filed for this visit. Physical Exam: On exam she appeared in good health and in no acute distress. Neurological: She is alert and oriented to person, place, and time. Psychiatric: She has a normal mood and affect. Her behavior is normal. Thought content normal. Head was grossly normocephalic. Lab/Radiology Results: Results for orders placed or performed in visit on 06/19/18 Urinalysis with reflex Culture Result Value Ref Range Glucose UA Negative Negative mg/dL Protein UA Negative Negative mg/dL Bilirubin UA Negative Negative mg/dL Urobilinogen UA Normal Normal mg/dL pH UA 6.0 5.0 - 8.0 Blood UA Negative Negative mg/dL Ketones UA Negative Negative mg/dL Nitrite UA Negative Negative Leukocytes UA Negative Negative mcL Appearance UA Clear Clear Spec Ellerbe UA 1.015 1.002 - 1.030 Color UA Straw Yellow Culture Reflexed No POCT urine dipstick Result Value Ref Range POC Sp Ellerbe 1.01 1.002 - 1.030 POC pH, UA 5 5.0 - 8.5 POC Leuk, UA Trace Negative - Negative POC Nitrite, UA Negative Negative - Negative POC Protein, UA Negative Negative - Negative mg/dL POC Glucose, UA Normal Normal - Normal mg/dL POC Ketone, UA Negative Negative - Negative POC Urobil, UA Normal 0.2 - 1.0 mg/dL POC Bili, UA Negative Negative - Negative POC Blood, UA Negative Negative - Negative tin/uL Assessment and Plan: Jennifer Whitfield is a 53 y.o. female with urgency causing waking several times per night. Partially responsive to short acting oxybutynin - urgency waking up at night several times, initially helped by short acting ditropan 5, then 10. Also with urgency during the day. No side effects from this med. Trial of oxybutynin XR 10 q day given. Explained difference with extended release formula. Can uptitrate weekly to max 30 q 24 hours. Ptto f/u with urogyn in case this is not successful. Beatriz Tovar MD documented in this encounter Plan of Treatment Scheduled Referrals Name Type Priority Associated Diagnoses Orde r Schedule Referral to Urogynecology Outpatient Referral Routine Other urinary incontinence Ordered: 09/20/2018 documented as of this encounter Visit Diagnoses Diagnosis Other urinary incontinence documented in this encounter Care Teams Single Pointed Operator Relationship Specialty Start Date End Date Nancy Jackson MD [address] [place] [address] PCP - General Family Medicine 02/16/18 documented as of this encounter
--- OUTSIDE RECORDS SUMMARY | 2024-05-04 11:06 | XMS_ITS | Encounter Summary ---
Author Organization [facility] Address [facility] [place] [address] Care Team Providers Care Belt Lacer Name Role Phone Nancy Jackson MD Primary Care Provider [phone] Reason for Visit * Auth/Cert Specialty Diagnoses / Procedures Referred By Anderw hoff Referred To Contact Diagnoses post menopausal bleeding, cervical stenosis Procedures PRO HYSTEROSCOPY, DX, SEP PROC PRO DILATION/CURETTAGE, DIAGNOSTIC PRO PELVIC EXAMINATION W ANESTH PRO HYSTEROSCOPY, W/ENDO BX PRG US ABDOM B-SCAN &/OR REAL TIME, COMPLETE HYSTEROSCOPY, DIAGNOSTIC (WRVU 3.33) DILATION & CURETTAGE, DIAG OR THERAPEUTIC, NONOBSTETRICAL (WRVU 3.59) PELVIC EXAM UNDER ANESTHESIA (WRVU 1.75) HYSTEROSCOPY, SURG W/ENDOMETRIAL SAMPLING, POLYPECTOMY (WRVU 4.74) ULTRASOUND,INTRAOP, ABDOMINAL, COMPLETE (WRVU 0.81) Referral ID Status Reason Start Date Expiration Date Visits Re quested Visits Authorized [id number] 1 1 Encounter Details Date Type Department Care Team (Latest Contact Info) Description 05/12/2018 8:30 AM EST - 05/12/2018 11:59 PM [facility] Hospital [place] [address] [facility] OBSTETR[facility] AND [place] [address] Post-menopausal bleeding Discharge Disposition: Home Social History Tobacco Use Types Packs/Day Years Used Date Smoking Tobacco: Former Smokeless Tobacco: Never Alcohol Use Standard Drinks/Week Comments No 0 (1 standard drink = 0.6 oz pur e alcohol) Sex and Gender Information Value Date Recorded Sex Assigned at Not on file Gender Identity Not on file Sexual Orientation Not on file documented as of this encounter Medications at Time of Discharge Medication Sig Dispensed Refills Start Date End Date acetaminophen (TYLENOL) 325 mg Tablet Take 2 tablets by mouth every 6 hours as needed for Pain. 30 tablet 05/12/2018 ibuprofen (ADVIL;MOTRIN) 200 mg Tablet Take 3 tablets by mouth every 6 hours as needed for Pain. 30 tablet 05/12/2018 acyclovir (ZOVIRAX) 400 mg Tablet 03/13/2018 buPROPion (WELLBUTRIN XL) 150 mg Tablet Extended Release 24 hr TAKE ONE TABLET BY MOUTH TWICE A DAY 3 01/09/2018 cetirizine (ZYRTEC) 10 mg Tablet TAKE ONE TABLET BY MOUTH AT BEDTIME 3 01/10/2018 polyethylene glycol (MIRALAX) 17 gram/dose Powder 1 CAPFUL MIXED IN 8 OUNCES OF LIQUID BY MOUTH ONCE DAILY NEEDED FOR CONSTIPATION 11 01/09/2018 zolpidem (AMBIEN) 5 mg Tablet Take 5 mg by mouth nightly as needed for Sleep. diazePAM (VALIUM) 5 mg Tablet Take 5 mg by mouth every 6 hours as needed for Anxiety. rizatriptan (MAXALT) 10 mg Tablet Take 10 mg by mouth as needed for Migraine. Initial dose: 5 to 10 mg. May repeat dose after 2 hours. Max daily dose: 30 mg gabapentin (NEURONTIN) 100 mg Capsule TAKE TWO CAPSULES BY MOUTH AT BEDTIME 3 01/09/2018 buPROPion (WELLBUTRIN XL) 300 mg 24 hr tablet Take 300 mg by mouth every morning. NORGESTIMATE-ETHINYL ESTRADIOL (TRINESSA, 28, ORAL) Take by mouth. documented as of this encounter Plan of Treatment Not on file documented as of this encounter Procedures Procedure Name Priority Date/Time Associated Diagnosis Comments US GUIDANCE INTRAOPERATIVE Routine 05/12/2018 10:24 AM EST Post-menopausal bleeding SURGICAL PATHOLOGY REPORT Routine 05/12/2018 9:20 AM EST documented in this encounter Results * US Interop Guidance Technical Only (05/12/2018 10:24 AM EST) Anatomical Region Laterality Modality Ultrasound 05/12/2018 10:2 0 AM EST Impressions 05/12/2018 10:45 AM EST OR D & C - Summary Real time transabdominal ultrasound of the pelvis was performed pre hysteroscopy D & C in the operating room. ?Per Dr. Suresh ultrasound guidance was no longer needed after dilatation of the uterine cavity. ??. Real-time intraoperative transabdominal sonographic guidance provided to Dr. Suresh ??for cervical dilation. Thank you for letting us participate in the care of this patient. For questions regarding this report, please contact the number below. Electronically signed by: Elizabeth Belle [facility] ([phone]), at 05/12/2018 10:39 AM ?Elizabeth Belle MD Electronically Signed Final Report ?? 05/12/2018 10:44 am Narrative 05/12/2018 10:45 AM EST Gynecological Report ?(Signed Final 05/12/2018 10:44 am) PATIENT INFO: ID #: ? [id number] ?: ??[birth year] (52 yrs) Name: ? JENNIFER STEPHENS ?Visit Date: 05/12/2018 10:20 am PERFORMED BY: Performed By: ? Jose BRAXTON, ??Destinee Attending: ?Yoshi VELEZ, Elizabeth Taylor Resident: ? Zaina Ann MD Referred By: ?BEATRIZ SURESH Location: ? [place] SERVICE(S) PROVIDED: ??UINTOP - Intraoperative evaluation - [id number] ? [id number] INDICATIONS: ??NEEDS U/S IN THE OR FOR ??HYSTEROSCOPY -------- HISTORY: -------- Age: ?? 52 ------- UTERUS: ------- Uterus: ? Visualized ENDOMETRIUM: Procedure Note Elizabeth Belle MD - 05/12/2018 Gynecological Report (Signed Final 05/12/2018 10:44 am) PATIENT INFO: ID #: [id number] : [birth year] (52 yrs) Name: JENNIFER STEPHENS Visit Date: 05/12/2018 10:20 am PERFORMED BY: Performed By: Destinee Garcia RDMS Attending: Elizabeth Belle MD Resident: Zaina Ann MD Referred By: BEATRIZ SURESH Location: [place] SERVICE(S) PROVIDED: UINTOP - Intraoperative evaluation - [id number] INDICATIONS: NEEDS U/S IN THE OR FOR HYSTEROSCOPY -------- HISTORY: -------- Age: 52 ------- UTERUS: ------- Uterus: Visualized ENDOMETRIUM: IMPRESSION OR D & C - Summary Real time transabdominal ultrasound of the pelvis was performed pre hysteroscopy D & C in the operating room. Per Dr. Suresh ultrasound guidance was no longer needed after dilatation of the uterine cavity. . Real-time intraoperative transabdominal sonographic guidance provided to Dr. Suresh for cervical dilation. Thank you for letting us participate in the care of this patient. For questions regarding this report, please contact the number below. Electronically signed by: Elizabeth Belle [facility] ([phone]), at 05/12/2018 10:39 AM Elizabeth Belle MD Electronically Signed Final Report 05/12/2018 10:44 am Beatriz Suresh MD IMG US GEN ORDERABLE S * Surgical Pathology Report (05/12/2018 9:20 AM EST) Final Diagnosis [id number] ? Location: 3S The signing pathologist has (i) examined the relevant preparation(s) for the specimen(s) and (ii) rendered or confirmed the diagnosis(es). . ?Surgical Pathology DIAGNOSIS A - Endometrial currettings: 1. Minute fragments of benign atrophic endometrium intermixed with endocervical mucosa and blood clot. 2. No evidence of hyperplasia or endometritis. B - Uterine polyp, curettings: Fragments of benign endometrial polyp(s). Electronically signed by: ??Hamida Anderson MD Verified: ??05/16/2018 ?Pathologist Performed at: ??-[facility] Dept. of Pathology, [place], [place] CLINICAL INFORMATION Specimen Submitted: A - Endometrial currettings B - Uterine polyp Clinical History and Diagnosis: Post-menopausal bleeding, cervical stenosis SPECIMEN PROCESSING A - Labeled/Fixative : Endometrial curettings, fresh. Quantity/Size: ??Fragments, 1.0 x 0.8 x 0.2 cm. Tissue Description: Soft, red tissues. Sections/Process ing: Submitted en toto ??in 1 cassette labeled A1. B - Labeled/Fixative : Uterine polyp, fresh. Quantity/Size: ??Multiple, 2.5 x 1.3 x 0.6 cm. Tissue Description: Soft, pink-white polyp and tissue fragments. The polyp is bisected. Sections/Process ing: Entirely submitted in 2 cassettes labeled B1-B2. ??sns 05/16/2018 11:21 AM EST [facility] ENDOMETRIAL STRUCTURE / Unknown 05/12/2018 9:20 AM EST 05/12/2018 9:20 AM EST ENDOMETRIAL STRUCTURE / Unknown 05/12/2018 9:20 AM EST 05/12/2018 9:20 AM EST Beatriz Suresh MD PATHOLOGY/CYTOLOGY O RDERABLES [facility] [place] [address] documented in this encounter Visit Diagnoses Diagnosis Post-menopausal bleeding Postmenopausal bleeding documented in this encounter Care Teams Belt Lacer Relationship Specialty Start Date End Date Nancy Jackson MD [address] [place] [address] PCP - General Family Medicine 02/16/18 documented as of this encounter
--- OUTSIDE RECORDS SUMMARY | 2024-05-04 11:06 | XMS_ITS | Encounter Summary ---
Author Organization [facility] [place] [address] Care Team Providers Care Industrial Relations Director Name Role Phone Nancy Jackson MD Primary Care Provider [phone] Reason for Visit * Auth/Cert Specialty Diagnoses / Procedures Referred By Andrew hoff Referred To Contact Diagnoses post menopausal [...] Expiration Date Visits Re quested Visits Authorized [id number] 1 1 Encounter Details Date Type Department Care Team (Late st Contact Info) Description 05/12/2018 8:30 AM EST - 05/12/2018 10:28 AM EST Surgery [place] [address] Beatriz Tovar MD [facility] DR OBSTETRICS [place] [address] HYSTEROSCOPY, DIAGNOSTIC (WRVU 2.65) Social History Tobacco Use Types Packs/Day Years [...] Sign Reading Time Taken Comments Blood Pressure 119/78 05/12/2018 10:27 AM EST Pulse 79 05/12/2018 7:07 AM EST Temperature 36 ??C (96.8 ??F) 05/12/2018 10: 25 AM EST Respiratory Rate 17 05/12/2018 7:07 AM EST Oxygen Saturation 98% 05/12/2018 10: 27 AM EST Inhaled Oxygen Concentration - - Weight 89.8 kg (197 lb 14.4 oz) 05/12/2018 7:07 AM EST Height 160 cm (5' 3) 05/12/2018 7:07 AM EST Body Mass Index 35.06 05/12/2018 7:07 AM EST documented in this encounter Discharge Instructions * Patient Instructions* Rain Boone MD - 05/12/2018 8:01 AM EST Uterine Surgery/ Hysteroscopy/ Polypectomy/ Myomectomy/ D&C Instructions RECOMMENDATIONS 1. You should have somebody home with you until tomorrow. 2. You should go home and rest the remainder of the day. You can resume light activity the day after your procedure but do not be surprised if you feel tired and weak for a few days. 3. It is normal to have some menstrual-type cramping. Use of a heating pad or hot water bottle and elevating your feet may be helpful. 4. Postpone any important personal or business decisions for at least 24 hours[address] or operate dangerous machinery for 24 hours. 6. No alcoholic beverages should be consumed for at least 24 hours after surgery. 7. If you are not nauseated, you may resume your normal diet. MEDICATIONS 1. A prescription for pain medication may be sent home with you; use as directed by your doctor. 2. You may take non-prescription pain medication (Advil/Motrin/Tylenol) for pain or discomfort. 3. Take all pain medication with food or milk to avoid stomach upset. 4. Increasing your intake of non-caffeinated fluids and dietary fiber will help prevent constipation while taking prescription pain medication. BLEEDING 1. You may have irregular bleeding after the procedure. It may stop today or may continue for up to2 weeks. It may stop and start up again. This is all normal unless it becomes extremely heavy (saturating a pad/hour) or you are passing clots larger than an egg. VAGINAL PRECAUTIONS 1. Nothing should enter the vagina for one (1) week: ??? NO sexual intercourse ??? NO swimming or tub baths ??? NO douching CALL YOUR DOCTOR IF 1. You have a temperature of 100.4 or more for 4 hours 2. You have worsening cramps, develop lower abdominal pain or tenderness, experience chills or notice a foul-smelling vaginal discharge. 3. You have severe pain in your chest, difficulty breathing or fainting. 4. You have vaginal bleeding in excess of one pad/hour or pass clots larger than an egg. *Please call the Department of MUSIC PASTOR @ [phone] for any problem that concerns you. If you are in need of immediate medical attention please go to the nearest Emergency Department. documented in this encounter Medications at Time of Discharge [...] by mouth. documented as of this encounter Progress Notes * Ivana Wynne RN - 05/12/2018 10:46 AM EST Pt taking food and fluids. Small amount of vaginal bleeding noted. Denies pain, pt describes abdominal pressure, heat applied for comfort with good relief. AVS reviewed with patient and , all questions answered. Pt up to ambulate and void, no issues, small amt of bleeding noted with void. documented in this encounter H&P Notes * Rain Boone MD - 05/12/2018 7:55 AM EST Gynecology H & P Problem List: There are no hospital problems to display for this patient. Active Non-Hospital Problems Diagnosis ??? Migraine ??? Depression ??? Diverticulitis of large intestine with perforation ??? Plantar fasciitis ??? Genital HSV ??? Environmental allergies ??? Myofascial pain ??? Postmenopausal bleeding Reason for Visit: 52 y.o. Female presents to [facility] with PMB requiring hysteroscopy and D&C. History of Present Illness: Patient reports having a history of PMB. She passes clots, wears a pad daily, and this has been going on for 10 months.At [facility], provider was unable to biopsy in office, and she was referred for a D&C. She was seen by Dr. Tovar in the office on 04/03/18. The op report was reviewed; provider encountered a stenotic cervix and no endometrial tissue was seen on pathology. Of note, she has a history of a colectomy which could increase risk of adhesive disease. Review of Systems: As above. No change to health. Past Medical and Surgical History: No past medical history on file. Past Surgical History: Procedure Laterality Date ??? COLECTOMY 2008 10 of colon and a fallopian tube removed for diverticuitis ??? TEAR DUCT SURGERY 2006 Past Obstetric History: OB History Para Term AB Living 3 2 0 0 1 0 SAB TAB Ectopic Multiple Live Births 0 1 0 0 0 Obstetric Comments x 2 Past Gynecologic History: Per Dr. Tovar's note: used to have a lot of cystos on the ovaries. Fibroids- were smaller. No other SUB ARC OPERATOR problems - no hx ablation or other D&C. Has had 3 bouts of gardnerella. c'scope UTD Mammo: due. It's been over a year Prior To Admission Medications: Medications Prior to Admission Medication Sig Dispense Refill Last Dose ??? acyclovir (ZOVIRAX) 400 mg Tablet 05/12/2018 at 0415 ??? buPROPion (WELLBUTRIN XL) 150 mg Tablet Extended Release 24 hr TAKE ONE TABLET BY MOUTH TWICE ADAY 3 05/12/2018 at 0415 ??? cetirizine (ZYRTEC) 10 mg Tablet TAKE ONE TABLET BY MOUTH AT BEDTIME 3 05/12/2018 at 0415 ??? gabapentin (NEURONTIN) 100 mg Capsule TAKE TWO CAPSULES BY MOUTH AT BEDTIME 3 05/10/2018 at Unknown time ??? polyethylene glycol (MIRALAX) 17 gram/dose Powder 1 CAPFUL MIXED IN 8 OUNCES OF LIQUID BY MOUTHONCE DAILY NEEDED FOR CONSTIPATION 11 05/11/2018 at Unknown time ??? zolpidem (AMBIEN) 5 mg Tablet Take 5 mg by mouth nightly as needed for Sleep. More than a monthat Unknown time ??? diazePAM (VALIUM) 5 mg Tablet Take 5 mg by mouth every 6 hours as needed for Anxiety. More thana month at Unknown time ??? rizatriptan (MAXALT) 10 mg Tablet Take 10 mg by mouth as needed for Migraine. Initial dose: 5 to 10 mg. May repeat dose after 2 hours. Max daily dose: 30 mg Taking at Unknown time Allergies: Allergies Allergen Reactions ??? Codeine Hard time breathing and chest pains ??? Darvocet A500 [Propoxyphene N-Acetaminophen] Shortness Of Breath ??? Percocet [Oxycodone-Acetaminophen] Hard time Breathing and chest pains ??? Vicodin [Hydrocodone-Acetaminophen] Hard time breathing and chest pains ??? Azithromycin GI Upset Family History: Family History Problem Relation Age of Onset ??? Cancer Father unknown type, in his chest? Breast Cancer Maternal Aunt Social History and Habits: Social History Socioeconomic History ??? Marital status: Spouse name: Not on file ??? Number of children: Not on file ??? Years of education: Not on file ??? Highest education level: Not on file Social Needs ??? Financial resource strain: Not on file ??? Food insecurity - worry: Not on file ??? Food insecurity - inability: Not on file ??? Transportation needs - medical: Not on file ??? Transportation needs - non-medical: Not on file Occupational History ??? Not on file Tobacco Use ??? Smoking status: Former Smoker ??? Smokeless tobacco: Never Used Substance and Sexual Activity ??? Alcohol use: No Frequency: Never ??? Drug use: No ??? Sexual activity: Yes Partners: Male Comment: Other Topics Concern ??? 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 Lives with . Has 2 children. Immunizations: There is no immunization history on file for this patient. Physical Exam: Last Set of Vitals: Last value Range last 24 hrs Temperature Temp: 36.8 ??C (98.2 ??F) Temp: [36.8 ??C (98.2 ??F)] Heart Rate Heart Rate: 79 Heart Rate: [79] Blood Pressure BP: 137/71 BP: (137)/(71) Respiratory Rate Resp: 17 Resp: [17] SpO2 SpO2: 96 % SpO2: [96 %] Physical Exam Physical Exam: General: No apparent distress, resting comfortably Heart: regular rate and rhythm, no murmurs/rubs/gallops Lungs: clear to ascultation bilaterally, no wheezes/rhonchi/crackles Abdomen: active bowel sounds, soft, non-tender to palpation, no rebound or guarding Ext: calves non-tender, no lower extremity edema Laboratory (Last 24 Hours): none Diagnostic Tests/Procedures Ordered: none Assessment/Plan: Jennifer is a 52 y.o. who presents for hysteroscopy and D&C for PMB. She will also have a pap test at the time of the procedure. Rain Boone MD PGY-1 05/12/2018 Associated attestation - Beatriz Tovar MD - 05/12/2018 10:55 AM EST I have seen the patient, discussed the plan of care with the resident as well as the patient and her , and agree with documentation as above. Beatriz Tovar MD documented in this encounter Miscellaneous Notes * Op Note - Beatriz Tovar MD - 05/12/2018 11:45 AM EST Operative Note ?? Patient Name: Jennifer Whitfiedl : [id number] MR#: [id number] ?? Case Date: 05/12/2018 ?? Surgeon: Surgeon(s) and Role: * Beatriz Tovar MD - Primary ?? Preoperative diagnosis: 1) post menopausal bleeding 2) cervical stenosis with prior failed attempt at D&C ?? Postoperative diagnosis: 1) post menopausal bleeding 2) cervical stenosis with prior failed attempt at D&C 3) endometrial polyps ?? Procedure(s) (LRB): HYSTEROSCOPY, DIAGNOSTIC (WRVU 3.33) (N/A) DILATION & CURETTAGE, DIAG OR THERAPEUTIC, NONOBSTETRICAL (WRVU 3.59) (N/A) PELVIC EXAM UNDER ANESTHESIA (WRVU 1.75) (N/A) HYSTEROSCOPY, SURG W/ENDOMETRIAL SAMPLING, POLYPECTOMY (WRVU 4.74) (N/A) ULTRASOUND,INTRAOP, ABDOMINAL, COMPLETE (WRVU 0.81) (N/A) ?? Pap Ultrasound-guided cervical dilation Operative hysteroscopy with resection of multiple endometrial polyps Dilation and curettage ?? Anesthesia: General ?? Findings: On EUA, small mobile RV uterus. On dilation, tortuous cervical canal requiring ultrasoundguidance for safe dilation. On hysteroscopy, 2 polyps hysterosocpically resected: largest (2 cm) polyp from left anterior uterus at 2 oclock. Second polyp behind this one (closer to fundus) at 3-4 o'clock. Remaining polypoid endometrial tissue removed via curettage. Bilateral tubal ostia seen with no remaining cavitary lesions. ?? Complications: none Intake: 900 cc crystalloid Hysterscopic deficit 485 cc NS ?? Output: Estimated Blood Loss: 5 mL Urine Output:: (no urine output recorded) Other Output: (no other output recorded) ?? Drains: none ?? Specimens removed during surgery: ?? Order Name Source Comment Collection Info Order Time SPECIMEN TO PATHOLOGY ? post menopausal bleeding, cervical stenosis endometrial currettings curetting 05/12/2018 10:04 AM Number of tissue samples (in container) 1 ? Time specimen removed from patient: 9:20 AM ? SPECIMEN TO PATHOLOGY ? post menopausal bleeding, cervical stenosis Uterine polyp excision 05/12/2018 10:04 AM Number of tissue samples (in container) 1 ? Time specimen removed from patient: 9:58 AM ? CYTOPATHOLOGY GYNECOLOGICAL ? 05/12/2018 10:12 AM HPV Testing choice (NOT recommended under 20 years): Concurrent HPV and Pap ? Chlamydia / Gonorrhea from the same vial? No ? Sample(s) provided: Liquid based Pap ? Specimen collected from: Cervical/Endocervical ? Last menstrual period (Date mm/dd/yy, Unknown or N/A)? unknown ? Currently on SUB ARC OPERATOR hormones (estrogen/proGESTerone compounds)? No ? Hysterectomy? No ? No ? No ? IUD? No ? Pelvic radiation? No ? Prior SUB ARC OPERATOR therapy? (Cone bx, Cautery, Cryotherapy, Surgery) No ? History of abnormal Pap or cervical biopsy? No ? History of HPV vaccination? No ? History of Smoking? No ? History of VERITO exposure? No ? ICD-10 Diagnosis: N95.0 PM bleeding ? Disposition: awakened from anesthesia, extubated and taken to the recovery room in a stable condition, having suffered no apparent untoward event. ?? Condition: doing well without problems ??Indication for Performed Surgery: The patient is a 52 y.o. P0 with a history of postmenopausal bleeding. At [facility], provider was unable to biopsy in office, and she was referred for a D&C. Plan was made for hysteroscopy for evaluation of polyp versus malignancy. Patient was counseled regarding risks, benefits, and alternatives, all questions were answered, and surgical consent was signed in e office. Procedure Description: Patient was taken to the OR with IV fluids running, where general LMA anesthesia was obtained without difficulty. She was placed in dorsal lithotomy position in [facility] in a neurologically neutral position and was prepared and draped in the usual sterile fashion. Bimanual exam demonstrated small retroverted uterus. A time out procedure was performed with all team m embers in agreement. An weighted speculum was placed in the vagina and the cervix visualized. A single toothed tenaculum was placed on the anterior lip of the cervix. The cervix was serially dilated to 21 [place] with ultrasound guidance due to tortuous cervical canal and the 5 mm hysteroscope assembled. The fluid tubing was primed with normal saline. The hysteroscope was gently advanced through the cervix into the uterus under direct vision. Two polyps were visualized,with the largest (2 cm) polyp from left anterior uterus at 2 o'clock and a second polyp at 3-4 o'clock. The resectoscope was placed and the two polyps were resected under direct hy steroscopic visualization using a bipolar cautery loop. Tthe basket curette was then inserted. The endometrial cavity was curetted in a clockwise fashion until a gritty feeling was noted in all aspects. The endometrial curettings were sent to Pathology. The hysteroscope was replaced to assess for removal of endometrial tissue and the polyps, which was confirmed to be satisfactory. The tenaculum was removed from the cervix and good hemostasis was noted at the puncture sites. The patient tolerated the procedure well. The instrument and sponge counts were correct times two. The patient was awakened from general anesthesia and taken to the recovery room in a stable condition. Dr. Tovar, Attending Logistics Supervisor, was present for the procedure in its entirety without conflicting responsibilities. Rain Boone MD PGY-1 05/12/2018 I was present and participated with the resident for the entire procedure, and agree with documentation above. Beatriz Tovar MD * Brief Op Note - Beatriz Tovar MD - 05/12/2018 10:13 AM EST Brief Operative Note Patient Name: Jennifer Whitfield : [id number] MR#: [id number] Case Date: 05/12/2018 Surgeon: Surgeon(s) and Role: * Beatriz Tovar MD - Primary Preoperative diagnosis: 1) post menopausal bleeding 2) cervical stenosis with prior failed attempt at D&C Postoperative diagnosis: 1) post menopausal bleeding 2) cervical stenosis with prior failed attempt at D&C 3) endometrial polyps Procedure(s) (LRB): HYSTEROSCOPY, DIAGNOSTIC (WRVU 3.33) (N/A) DILATION & CURETTAGE, DIAG OR THERAPEUTIC, NONOBSTETRICAL (WRVU 3.59) (N/A) PELVIC EXAM UNDER ANESTHESIA (WRVU 1.75) (N/A) HYSTEROSCOPY, SURG W/ENDOMETRIAL SAMPLING, POLYPECTOMY (WRVU 4.74) (N/A) ULTRASOUND,INTRAOP, ABDOMINAL, COMPLETE (WRVU 0.81) (N/A) Pap Ultrasound-guided cervical dilation Operative hysteroscopy with resection of multiple endometrial polyps Dilation and curettage Anesthesia: General Findings: On EUA, small mobile RV uterus. On dilation, tortuous cervical canal requiring ultrasoundguidance for safe dilation. On hysteroscopy, 2 polyps hysterosocpically resected: largest (2 cm) polyp from left anterior uterus at 2 oclock. Second polyp behind this one (closer to fundus) at 3-4 o'clock. Remaining polypoid endometrial tissue removed via curettage. Bilateral tubal ostia seen with no remaining cavitary lesions. Complications: none Intake: 900 cc crystalloid Hysterscopic deficit 485 cc NS Output: Estimated Blood Loss: 5 mL Urine Output:: (no urine output recorded) Other Output: (no other output recorded) Drains: none Specimens removed during surgery: Order Name Source Comment Collection Info Order Time SPECIMEN TO PATHOLOGY post menopausal bleeding, cervical stenosis endometrial currettings curetting 05/12/2018 10:04 AM Number of tissue samples (in container) 1 Time specimen removed from patient: 9:20 AM SPECIMEN TO PATHOLOGY post menopausal bleeding, cervical stenosis Uterine polyp excision 05/12/2018 10:04 AM Number of tissue samples (in container) 1 Time specimen removed from patient: 9:58 AM CYTOPATHOLOGY GYNECOLOGICAL 05/12/2018 10:12 AM HPV Testing choice (NOT recommended under 20 years): Concurrent HPV and Pap Chlamydia / Gonorrhea from the same vial? No Sample(s) provided: Liquid based Pap Specimen collected from: Cervical/Endocervical Last menstrual period (Date mm/dd/yy, Unknown or N/A)? unknown Currently on SUB ARC OPERATOR hormones (estrogen/proGESTerone compounds)? No Hysterectomy? No ? No ? No IUD? No Pelvic radiation? No Prior SUB ARC OPERATOR therapy? (Cone bx, Cautery, Cryotherapy, Surgery) No History of abnormal Pap or cervical biopsy? No History of HPV vaccination? No History of Smoking? No History of VERITO exposure? No ICD-10 Diagnosis: N95.0 PM bleeding Disposition: awakened from anesthesia, extubated and taken to the recovery room in a stable condition, having suffered no apparent untoward event. Condition: doing well without problems Attestation: Case Date: 05/12/2018 I was present and I participated during the entire procedure (does not need to include opening and closing). (Please see the Surgical Encounter Summary for any Implant and Specimen details pertinent to this patient.) Beatriz Tovar MD documented in this encounter Plan of Treatment Not on file documented as of this encounter Procedures Procedure Name Priority Date/Time Associated Diagnosis Comments HPV Routine 05/12/2018 10:12 AM EST SUB ARC OPERATOR CYTOLOGY INTERPRETATION Routine 05/12/2018 10:12 AM EST SUB ARC OPERATOR CYTOLOGY FINAL REPORT Routine 05/12/2018 10:12 AM EST CYTOPATHOLOGY GYNECOLOGICAL Routine 05/12/2018 10:12 AM EST SPECIMEN TO PATHOLOGY Routine 05/12/2018 10:04 AM EST SPECIMEN TO PATHOLOGY Routine 05/12/2018 10:04 AM EST ULTRASOUND,INTRAOP, ABDOMINAL, COMPLETE (WRVU 0.81) 05/12/2018 8:35 AM EST Postmenopausal bleeding HYSTEROSCOPY, SURG W/ENDOMETRIAL SAMPLING, POLYPECTOMY (WRVU 4.17) 05/12/2018 8:35 AM EST Postmenopausal bleeding PELVIC EXAM UNDER ANESTHESIA (WRVU 1.75) 05/12/2018 8:35 AM EST Postmenopausal bleeding DILATION & CURETTAGE, DIAG OR THERAPEUTIC, NONOBSTETRICAL (WRVU 3.59) 05/12/2018 8:35 AM EST Postmenopausal bleeding HYSTEROSCOPY, DIAGNOSTIC (WRVU 2.65) 05/12/2018 8:35 AM EST Postmenopausal bleeding ULTRASOUND,INTRAOP, ABDOMINAL, COMPLETE Routine 05/12/2018 6:59 AM EST Postmenopausal bleeding HYSTEROSCOPY, DIAGNOSTIC Routine 05/12/2018 6:59 AM EST Postmenopausal bleeding DILATION & CURETTAGE, DIAG OR THERAPEUTIC, NONOBSTETRICAL Routine 05/12/2018 6:59 AM EST Postmenopausal bleeding PELVIC EXAM UNDER ANESTHESIA Routine 05/12/2018 6:59 AM EST Postmenopausal bleeding documented in this encounter Results * Data Analysis Intern Cytology Final Report (05/12/2018 10:12 AM EST) Data Analysis Intern Cytology Final Report [id number] ? Location: [facility]; [facility]; The signing pathologist has (i) examined the relevant preparation(s) for the specimen(s) and (ii) rendered or confirmed the diagnosis(es). . ? Data Analysis Intern Final DIAGNOSIS Normal Negative for intraepithelial lesion or malignancy (NILM). For consensus guidelines for the management of cervical cancer screening test results, please see: ?? [email or web address] . Electronically signed by: ??SHASHA Mi(ASCP)Shellie Verified: ??05/25/2018 ?Sports Clerk Performed at: ??-[facility] Dept. of Pathology, [place], [place] DISCUSSION Obscuring lubricant residue noted. HPV RESULTS HPV16 (Result) ?Negative HPV18 (Result) ?Negative HPVOHR (Result) ? Negative HPV (Interpretation) ?See Below HPV (Interpretation) Text: NEGATIVE for high-risk HPV *. *Testing negative for high risk HPV means that the specimen is negative for the following 14 types tested: types 16, 18, 31, 33, 35, 39, 45, 51, 52, 56, 58, 59, 66, and 68. The test is not intended to detect low risk HPV types. Remote zuleika HPV test Specimen: HPV Testing - Cytology Liquid Based Prep The Remote zuleika ? HPV test was validated, performed and results reported through the [facility] ([facility]) at [facility]. ? - Addy Moscoso, PhD, HCLD, Director-[facility] STATEMENT OF ADEQUACY Specimen submitted is satisfactory. Endocervical component present. CLINICAL INFORMATION HPV Option: ?Concurrent HPV and Pap CT/NG Option: ?? No Preparation: ? Liquid based Pap Specimen Source: ? Cervical/Endocervi wni LMP: ? unknown Hormones?: ? No Hysterectomy?: ? No ?: ? No ?: ? No I.U.D.?: ? No Pelvic Radiation: ?No Prior SUB ARC OPERATOR Therapy?: ?No Hist Abnl Pap/Biopsy?: ?? No Hist of HPV Vaccine?: ?No Hist of Smoking?: ?No Hist of VERITO exposure?: ?? No . CLINICAL INFORMATION ICD Diagnosis: ? N95.0 PM bleeding Clinical Data, Significant Therapy and Clinical Impression ?? : ?Postmenopausal bleeding This Pap Test has been evaluated with the assistance of the ThinPrep Pap Test Imaging System. Note: The Pap test is a screening test for cervical cancer with an inherent false-negative rate dependent upon several variables. For further information please contact the [facility] Laboratory. Reference: Jc FOURNIER. Chief Safety Officer of Pap Smear Results. In: Herminia BS, Corey HH, ed. The Pap Smear. [place]: Jeremiah, 2002: 71-77. [facility] 05/12/2018 10:1 2 AM EST Beatriz Tovar MD PATHOLOGY/CYTOLOGY O WENDI Performing Organization Address [facility] de Phone Number [facility] [place] [address] * SUB ARC OPERATOR Cytology Interpretation (05/12/2018 10:12 AM EST) Data Analysis Intern Cytology Interpretation [facility] Comment:Data Analysis Intern Cytology Final R eport Data Analysis Intern Cytology Comment Present [facility] Endocervical Component Present [facility] AP Specimen 05/12/2018 10:1 2 AM EST 05/25/2018 5:11 PM EST Beatriz Tovar MD PATHOLOGY/CYTOLOGY O WENDI Performing Organization Address [facility] Co de Phone Number [facility] [place] [place] [address] * HPV (05/12/2018 10:12 AM EST) HPV16 NEGATIVE NEGATIVE [facility] HPV 18 NEGATIVE NEGATIVE [facility] HPV Other HR NEGATIVE NEGATIVE [facility] HPV Interpretation See Comment [facility] Comment: NEGATIVE for high-risk HPV *. * Testing negative for high risk HPV means that the specimen is negative for the following 14 types tested: ??types 16, 18, 31, 33, 35, 39, 45, 51, 52, 56, 58, 59, 66, and 68. ??The test is not intended to detect low risk HPV types. Hayder Zuleika HPV test Specimen: HPV Testing - Cytology Liquid Based Prep Cervical swab (specimen) 05/12/2018 10:12 AM EST 05/12/2018 10:40 AM EST Narrative Resulting Agency Comment Spec In Lab Beatriz Tovar MD PATHOLOGY/CYTOLOGY O WENDI Performing Organization Address [facility] Co de Phone Number [facility] [place] [address] * Cytopathology Gynecological (05/12/2018 10:12 AM EST) AP Specimen 05/12/2018 10:1 2 AM EST 05/12/2018 10:39 AM EST Narrative [facility] - 05/12/2018 10:39 AM EST Specimen requisition ordered. ??Separate Pathology report to follow Resulting Agency Comment Spec In Lab Beatriz Tovar MD PATHOLOGY/CYTOLOGY O WENDI Performing Organization Address [facility] Co de Phone Number [facility] [place] [address] * Specimen to Pathology (05/12/2018 10:04 AM EST) AP Specimen 05/12/2018 10:0 4 AM EST 05/12/2018 10:04 AM EST Narrative [facility] - 05/12/2018 10:04 AM EST Specimen requisition ordered. ??Separate Pathology report to follow Beatriz Tovar MD PATHOLOGY/CYTOLOGY O WENDI Performing Organization Address [facility] Co de Phone Number [facility] [place] [address] * Specimen to Pathology (05/12/2018 10:04 AM EST) AP Specimen 05/12/2018 10:0 4 AM EST 05/12/2018 10:04 AM EST Narrative [facility] - 05/12/2018 10:04 AM EST Specimen requisition ordered. ??Separate Pathology report to follow Beatriz Tovar MD PATHOLOGY/CYTOLOGY Raissa [facility] [place] [address] documented in this encounter Visit Diagnoses Diagnosis Postmenopausal bleeding Postmenopausal bleeding documented in this encounter Administered Medications Inactive Administered Medications - up to 3 most recent administrations Medication Order MAR Action Action Date Dose Rate Site acetaminophen (TYLENOL) tablet 1,000 mg 1,000 mg, Oral, ONCE, 1 dose, On Tue05/12/18 at 0830, Administer with SIP of H2O only., Day of Surgery (Day of Procedure), Routine Given 05/12/2018 8:13 AM EST 1,000 mg HYDROmorphone (DILAUDID) injection 0.2-0.4 mg 0.2-0.4 mg, Intravenous, EVERY 5 MIN PRN, Starting on Tue05/12/18 at 1030, Until Tue05/12/18 at 1146, Pain, Give 0.2 mg every 5 minutes PRN for mild to moderate pain (1-5) Give 0.4 mg every 5 minutes PRN for moderate to severe pain (6-10). Hold for respiratory rate less than 10 per minute. Maximum dose 4 mg over one hour. If multiple pain medications are ordered, start with hydromorphone or morphine and use fentanyl for breakthrough pain., PACU Recovery, Routine lactated Ringers infusion 1,000 mL 1,000 mL, at 100 mL/hr, Intravenous, CONTINUOUS, Starting on Tue05/12/18 at 0745, Until Tue05/12/18 at 1146, Day of Surgery (Day of Procedure) New Bag 05/12/2018 7:26 AM EST 1,000 mLs 100 mL/hr lidocaine (XYLOCAINE) 10 mg/mL (1 %) injection 3 mg 3 mg (0.3 mL), Subcutaneous, ONCE PRN, 1 dose, Starting on Tue05/12/18 at 0716, Until Tue05/12/18 at 0727, for discomfort with PIV insertion, Day of Surgery (Day of Procedure), Routine Given 05/12/2018 7:27 AM EST 3 mg nalOXone (NARCAN) injection 0.04 mg 0.04 mg, Intravenous, EVERY 5 MIN PRN, Starting on Tue05/12/18 at 1030, Until Tue05/12/18 at 1146, Opioid Reversal, for respiratory rate less than 6 or unresponsive., May repeat every 5 minutes to increase respiratory rate. DO NOT exceed 0.12 mg total dose. Notify anesthesia immediately if administered., PACU Recovery, Routine prochlorperazine (COMPAZINE) injection 5 mg 5 mg, Intravenous, EVERY 30 MIN PRN, 2 doses, Starting on Tue05/12/18 at 1030, Until Tue05/12/18 at 1146, Nausea, May repeat 5 mg once in 30 minutes. If multiple antiemetics ordered, use ondansetron first and if ineffective use prochlorperazine second and if ineffective use promethazine, PACU Recovery, Routine sodium chloride 0.9 % flush 5-20 mL 5-20 mL, Intravenous, EVERY 1 MIN PRN, Starting on Tue05/12/18 at 0716, Until Tue05/12/18 at 1146, flush, Flush pertains to all indwelling lines. Flush per protocol found in the job aid using the link provided on this medication record., Day of Surgery (Day of Procedure), Routine documented in this encounter Active and Recently Administered Medications Times are shown in EST. Scheduled Medication Order 05/10/2018 05/11/2018 05/12/2018 acetaminophen (TYLENOL) tablet 1,000 mg (COMPLETED) 1,000 mg, Oral, ONCE, 1 dose, On Tue05/12/18 at 0830, Administer with SIP of H2O only., Day of Surgery (Day of Procedure), Routine 0813 (Given - Provid er: Lizbet Wang RN) ibuprofen (ADVIL;MOTRIN) tablet 600 mg 600 mg, Oral, EVERY 6 HOURS SCHEDULED, First dose on 05/13/18 at 0000, Until Discontinued, Begin after the Ketorolac is discontinued, Routine Continuous Medication Order 05/10/2018 05/11/2018 05/12/2018 lactated Ringers infusion 1,000 mL 1,000 mL, at 100 mL/hr, Intravenous, CONTINUOUS, Starting on Tue05/12/18 at 0745, Until Tue05/12/18 at 1146, Day of Surgery (Day of Procedure) 0726 (New Bag - Prov ider: Lizbet Wang RN) lactated Ringers infusion 1,000 mL 1,000 mL, at 100 mL/hr, Intravenous, CONTINUOUS, Starting on Tue05/12/18 at 1045, Until Tue05/12/18 at 1345 1045 (Due) PRN Medication Order 05/10/2018 05/11/2018 05/12/2018 acetaminophen (TYLENOL) tablet 650 mg 650 mg, Oral, EVERY 6 HOURS PRN, Starting on Tue05/12/18 at 1026, Until Tue05/12/18 at 1345, Pain, If multiple pain medications ordered, use acetaminophen first., Routine HYDROmorphone (DILAUDID) injection 0.2-0.4 mg 0.2-0.4 mg, Intravenous, EVERY 5 MIN PRN, Starting on Tue05/12/18 at 1030, Until Tue05/12/18 at 1146, Pain, Give 0.2 mg every 5 minutes PRN for mild to moderate pain (1-5) Give 0.4 mg every 5 minutes PRN for moderate to severe pain (6-10). Hold for respiratory rate less than 10 per minute. Maximum dose 4 mg over one hour. If multiple pain medications are ordered, start with hydromorphone or morphine and use fentanyl for breakthrough pain., PACU Recovery, Routine lidocaine (XYLOCAINE) 10 mg/mL (1 %) injection 3 mg (COMPLETED) 3 mg (0.3 mL), Subcutaneous, ONCE PRN, 1 dose, Starting on Tue05/12/18 at 0716, Until Tue05/12/18 at 0727, for discomfort with PIV insertion, Day of Surgery (Day of Procedure), Routine 07 (Given - Provid er: Lizbet Wang, JOVANY) nalOXone (NARCAN) injection 0.04 mg 0.04 mg, Intravenous, EVERY 5 MIN PRN, Starting on Tue05/12/18 at 1030, Until Tue05/12/18 at 1146, Opioid Reversal, for respiratory rate less than 6 or unresponsive., May repeat every 5 minutes to increase respiratory rate. DO NOT exceed 0.12 mg total dose. Notify anesthesia immediately if administered., PACU Recovery, Routine prochlorperazine (COMPAZINE) injection 5 mg 5 mg, Intravenous, EVERY 30 MIN PRN, 2 doses, Starting on Tue05/12/18 at 1030, Until Tue05/12/18 at 1146, Nausea, May repeat 5 mg once in 30 minutes. If multiple antiemetics ordered, use ondansetron first and if ineffective use prochlorperazine second and if ineffective use promethazine, PACU Recovery, Routine sodium chloride 0.9 % flush 5-20 mL 5-20 mL, Intravenous, EVERY 1 MIN PRN, Starting on Tue05/12/18 at 0716, Until Tue05/12/18 at 1146, flush, Flush pertains to all indwelling lines. Flush per protocol found in the job aid using the link provided on this medication record., Day of Surgery (Day of Procedure), Routine documented in this encounter Care Teams Industrial Relations Director Relationship Specialty Start Date End Date Nancy Jackson MD [address] [place] [address] PCP - General Family Medicine 02/16/18 documented as of this encounter
--- OUTSIDE RECORDS SUMMARY | 2024-05-04 11:06 | XMS_ITS | Encounter Summary ---
Author Organization [facility] [place] [address] Care Team Providers Care Management Consultant Name Role Phone Nancy Jackson MD Primary Care Provider [phone] Encounter Details Date Type Department Care Team (Late st Contact Info) Description 05/15/2018 Telephone Obstetrics [place] [address] Eula Gerardo RN Social History Tobacco Use Types Packs/Day Years Used Date Smoking Tobacco: Former Smokeless Tobacco: Never Alcohol Use Standard Drinks/Week Comments No 0 (1 standard drink = 0.6 oz pur e alcohol) Sex and Gender Information Value Date Recorded Sex Assigned at Not on file Gender Identity Not on file Sexual Orientation Not on file documented as of this encounter Miscellaneous Notes * Telephone Encounter - Eula Gerardo RN - 05/15/2018 4:03 PM EST Surgery Date: 05/12/18 Hysteroscopy Caller: Eula Gerardo RN Reason for call: Post-op Surgery phone call. Speaking with: Patient Condition of patient: She states she had hot flashes on and off the following day, but otherwise,things are going well. Pain control: Currently having no pain Tolerating solids/liquids: WNL Had a BM or passing flatus: WNL Voiding: WNL Vaginal Bleeding: I've stopped bleeding other than a few clots, pencil eraser size. Asked if she needs a follow-up appointment. No other questions or concerns at this time. Plan: Will send santa's helper message to contact patient for F/U visit. Encouraged to call with any further questions or concerns at [phone]. documented in this encounter Plan of Treatment Not on file documented as of this encounter Visit Diagnoses Not on filedocumented in this encounter Care Teams Management Consultant Relationship Specialty Start Date End Date Nancy Jackson MD [address] [place] [address] PCP - General Family Medicine 02/16/18 documented as of this encounter
--- OUTSIDE RECORDS SUMMARY | 2024-05-04 11:06 | XMS_ITS | Encounter Summary ---
Author Organization [facility] [place] [address] Care Team Providers Care Pharmacy Resident Name Role Phone Nancy Jackson MD Primary Care Provider [phone] Reason for Visit * Reason Onset Date Comments Other 04/03/2018 Encounter Details Date Type Department Care Team (Late st Contact Info) Description 04/03/2018 Telephone Obstetrics and Gynecology at [facility] [place] [phone] Eula Gerardo RN Other Social History Tobacco Use Types Packs/Day Years [...] encounter Miscellaneous Notes * Telephone Encounter - Carina Holguin - 04/03/2018 10:04 AM EST Please sign order documented in this encounter Plan of Treatment Not on file documented as of this encounter Results * US Interop Guidance [...] this report, please contact the number below. ?Elizabeth Belle MD Electronically Signed Final Report ?? 05/12/2018 10:44 am Narrative 05/12/2018 10:45 AM EST Gynecological Report ?(Signed Final 05/12/2018 10:44 am) PATIENT INFO: ID #: ? [id number] ?: ??[birth year] (52 yrs) Name: ? JENNIFER Madina KAT ?Visit Date: 05/12/2018 10:20 am PERFORMED BY: Performed By: ? Jose BRAXTON, ??Destinee Attending: ?Yoshi VELEZ, Elizabeth Taylor Resident: ? Marissa VELEZ, Zaina Referred By: ?BEATRIZ SURESH Location: ? [place] SERVICE(S) PROVIDED: ??UINTOP - Intraoperative evaluation - [id number] ? [id number] INDICATIONS: ??NEEDS U/S IN THE OR FOR ??HYSTEROSCOPY -------- HISTORY: -------- Age: ?? 52 ------- UTERUS: ------- Uterus: ? Visualized ENDOMETRIUM: Procedure Note Elizabeth Belle MD - 05/12/2018 Gynecological Report (Signed Final 05/12/2018 10:44 am) PATIENT INFO: ID #: [id number] : 61 (52 yrs) Name: JENNIFER STEPHENS Visit Date: 05/12/2018 10:20 am PERFORMED BY: Performed By: Destinee Garcia RDMS Attending: Elizabeth Belle MD Resident: Zaina Ann MD Referred By: BEATRIZ SURSEH Location: [place] SERVICE(S) PROVIDED: UINTOP - Intraoperative evaluation - [id number] INDICATIONS: NEEDS U/S IN THE OR FOR [...] this report, please contact the number below. Elizabeth Belle MD Electronically Signed Final Report 05/12/2018 10:44 am Beatriz Suresh MD IMG US GEN ORDERABLE S documented in this encounter Visit Diagnoses Diagnosis Post-menopausal bleeding Postmenopausal bleeding Post-menopausal bleeding Postmenopausal bleeding documented in this encounter Care Teams Pharmacy Resident Relationship Specialty Start Date End Date Nancy Jackson MD [address] [place] [address] PCP - General Family Medicine 02/16/18 documented as of this encounter
--- OUTSIDE RECORDS SUMMARY | 2024-05-04 11:06 | XMS_ITS | Encounter Summary ---
Author Organization [facility] Address [facility] [place] [address] Care Team Providers Care Aircraft Air Conditioning Mechanic Name Role Phone Nancy Jackson MD Primary Care Provider Reason for Visit * Reason Comments Establish Care Postmenopausal Vagin al Bleeding. * Consultation (Routine) - Closed Specialty Diagnoses / Procedures Referred By Contac t Referred To Contact Obstetrics and Gynecology Diagnoses Postmenopausal vaginal bleeding Sravani Chang PA [address] [place] [address] [facility] Director [employer] [address] [place] [address] Referral ID Status Reason Start Date Expiration Date Visits Re quested Visits Authorized [id number] Closed 02/13/2018 02/13/2019 1 1 Encounter Details Date Type Department Care Team (Latest Contact Info) Description 04/03/2018 8:45 AM EST Office Visit Obstetrics [place] [address] Beatriz Tovar MD [facility] [place] [address] Diverticulitis of large intestine with perforation, unspecified bleeding status; Genital herpes simplex, unspecified site; Postmenopausal bleeding; Cervical stenosis (uterine cervix) Social History Tobacco Use Types Packs/Day Years [...] Sign Reading Time Taken Comments Blood Pressure 118/81 04/03/2018 8:38 AM EST Pulse 72 04/03/2018 8:38 AM EST Temperature 37 ??C (98.6 ??F) 04/03/2018 8:38 AM EST Respiratory Rate - - Oxygen Saturation 95% 04/03/2018 8:38 AM EST Inhaled Oxygen Concentration - - Weight 92.4 kg (203 lb 11.2 oz) 04/03/2018 8:38 AM EST Height 161.3 cm (5' 3.5) 04/03/2018 8:38 AM EST Body Mass Index 35.52 04/03/2018 8:38 AM EST documented in this encounter Progress Notes * Beatriz Tovar MD - 04/03/2018 8:45 AM EST 04/04/18 Referred by: REINALDO Marino Chief Complaint Patient presents with ??? Establish Care Postmenopausal Vaginal Bleeding. HPI: Jennifer Whitfield is a 52 y.o. female presenting for postmenopausal bleeding Still having VB, passing clots. Overall the bleeding is not heavy. Has to wear a pad every day, changing a couple times. Going on x 10 months. - provider unable to bx in office - D&C attempted but no endometrial tissue obtained. Op report reviewed. Stenotic cx noted. Prior to that had been 2 years since hte last periods. Before that, they were every 28 days, would go thorgh a half package of regular pads. Very heavy. Lasted about 3 days. Not too painful. RUBBER MIXER problems: used to have a lot of cystos on the ovaries. Fibroids- were smaller. No other RUBBER MIXER problems - no hx ablation or other D&C. Has had 3 bouts of gardnerella. c'scope UTD Mammo: due. It's been over a year, Review of systems: Except as noted, comprehensive review of systems was negative. Head Greenskeeper History: Abnormal pap: denies Most recent pap: states UTD, per record 2016 pap normal per pt report OB History Para Term AB Living 3 2 1 SAB TAB Ectopic Multiple Live Births 1 Obstetric Comments x 2 Patient Active Problem List Diagnosis Code ??? Migraine G43.909 ??? Depression F32.9 ??? Diverticulitis of large intestine with perforation K57.20 ??? Plantar fasciitis M72.2 ??? Genital HSV A60.00 ??? Environmental allergies Z91.09 ??? Myofascial pain M79.18 ??? Postmenopausal bleeding N95.0 No past medical history on file. Past Surgical History: Procedure Laterality Date ??? COLECTOMY 2009 7 of colon and a fallopian tube removed for diverticuitis ??? TEAR DUCT SURGERY 2005 FAMILY HISTORY family history includes Breast Cancer in her maternal aunt; Cancer in her father. SOCIAL HISTORY Social History Socioeconomic History ??? 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 Lives with . Has 2 children. Allergies Allergen Reactions ??? Codeine Hard time breathing and chest pains ??? Percocet [Oxycodone-Acetaminophen] Hard time Breathing and chest pains ??? Vicodin [Hydrocodone-Acetaminophen] Hard time breathing and chest pains ??? Azithromycin GI Upset Outpatient Medications Marked as Taking for the 04/03/18 encounter (Office Visit) with Beatriz Tovar MD Medication Sig Dispense Refill ??? acyclovir (ZOVIRAX) 400 mg Tablet ??? buPROPion (WELLBUTRIN XL) 150 mg Tablet Extended Release 24 hr TAKE ONE TABLET BY MOUTH TWICE ADAY 3 ??? cetirizine (ZYRTEC) 10 mg Tablet TAKE ONE TABLET BY MOUTH AT BEDTIME 3 ??? gabapentin (NEURONTIN) 100 mg Capsule TAKE TWO CAPSULES BY MOUTH AT BEDTIME 3 ??? polyethylene glycol (MIRALAX) 17 gram/dose Powder 1 CAPFUL MIXED IN 8 OUNCES OF LIQUID BY MOUTHONCE DAILY NEEDED FOR CONSTIPATION 11 ??? zolpidem (AMBIEN) 5 mg Tablet Take 5 mg by mouth nightly as needed for Sleep. ??? diazePAM (VALIUM) 5 mg Tablet Take 5 mg by mouth every 6 hours as needed for Anxiety. ??? rizatriptan (MAXALT) 10 mg Tablet Take 10 mg by mouth as needed for Migraine. Initial dose: 5 to 10 mg. May repeat dose after 2 hours. Max daily dose: 30 mg Wt Readings from Last 3 Encounters: 04/03/18 92.4 kg (203 lb 11.2 oz) Body mass index is 35.52 kg/m??. Most Recent Vitals: 04/03/18 0838 BP: 118/81 Pulse: 72 Temp: 37 ??C (98.6 ??F) SpO2: 95% Physical Exam: On exam she appeared in good health and in no acute distress. Neurological: She is alert and oriented to person, place, and time. Psychiatric: She has a normal mood and affect. Her behavior is normal. Thought content normal. Head was grossly normocephalic. Neck no thyromegaly or lymphadeopathy. Lungs were clear to auscultation bilaterally. Heart regular rate and rhythm without murmurs or gallops. The abdomen was soft, non-tender, and without guarding or rebound. No masses or organomegaly. Surgical scars were appreciated: vertical midline from colectomy Examination of the extremities revealed no cyanosis, clubbing or edema. Pelvic Exam: External female genitalia: normal architecture, no lesions Normal bladder, urethra, Bartholin's ducts. Vagina: moderately estrogenized, no abnormal discharge or blood in the vaginal vault Cervix: palpated, anterior, small, nontender. Not able to visualize with speculum due to patient discomfort and anterior position. Uterus: mobile, nontender to manipulation via vaginal hand, mildly tender to palpation with abdominal hand, difficult to assess contours Adnexa: nontender, without masses Anus and perineum: no lesions Lab/Radiology Results: Results for orders placed or performed in visit on 04/03/18 POCT urine Result Value Ref Range POC Urine HCG Negative Negative - Negative POC Control Internal Controls Acceptable 9/6/18 US report reviewed: fibroids, largest 2.7 cm; smaller when compared with prior CT scan. 9 mmendometrium without focal lesions. No adnexal lesions. Assessment and Plan: Jennifer Whitfield is a 52 y.o. female with persistent postmenopausal bleeding daily x 10 months, worrisome for endometrial cancer. At [facility], provider was unable to biopsy in office, and she was referred for a D&C. The op report was reviewed; provider encountered a stenotic cervix and no endometrial tissue was seen on pathology. On exam today, her cervix is anterior and I suspect the uterusis involved in adhesions from her prior colectomy, versus a lower uterine fibroid distorting her anatomy. I discussed with patient the need for a tissue diagnosis to exclude malignancy. Options include proceeding with hysteroscopy, D&C versus hysterectomy. Given her surgical history, (vertical ex lapcolectomy) putting her at higher risk for operative injury due to adhesions, I recommend another attempt at uterine sampling. I recommend that instead of blind sampling, we use US guidance and hysteroscopy to aid our attempts to access her uterine cavity. I counseled the patient that if we are not successful in visualizing and sampling the endometrium, I'd recommend proceeding with hysterectomy. If hysteroscopy is successful, we will plan to remove any focal lesions in addition to a curettage. Patient will need a PAP at the time of surgery, as a record of her prior paps is not seen in the referral notes and I was not able to visualize her cervix in the office today TVUS images were requested Pt signed RODOLFO and we will obtain op report from her colectomy Informed surgical consent obtained and Eileen met patient for scheduling. Beatriz Tovar MD documented in this encounter Plan of Treatment Not on file documented as of this encounter Procedures Procedure Name Priority Date/Time Associated Diagnosis Comments HYSTEROSCOPY, SURG W/ENDOMETRIAL SAMPLING, POLYPECTOMY Routine 04/03/2018 9:37 AM EST Postmenopausal bleeding POCT URINE Routine 04/03/2018 Postmenopausal bleeding documented in this encounter Results * POCT urine (04/03/2018) POC Urine HCG Negative Negative - Negative POC Control Internal Controls Acceptable Beatriz Tovar MD POINT OF CARE TEST O RDERABLES documented in this encounter Visit Diagnoses Diagnosis Diverticulitis of large intestine with perforation, unspecified bleeding status Genital herpes simplex, unspecified site Postmenopausal bleeding Cervical stenosis (uterine cervix) Stricture and stenosis of cervix documented in this encounter Care Teams Aircraft Air Conditioning Mechanic Relationship Specialty Start Date End Date Nancy Jackson MD [address] [place] [address] PCP - General Family Medicine 02/16/18 documented as of this encounter
--- OUTSIDE RECORDS SUMMARY | 2024-05-04 11:06 | XMS_ITS | Encounter Summary ---
Author Organization [facility] [place] [address] Care Team Providers Care Residential Finish Carpenter Name Role Phone Unavailable Primary Care Provider Unavailabl e Encounter Details Date Type Department Care Team (Latest Contact Info) Description 08/28/2013 - 08/28/2013 11:59 PM EDT Hospital Encounter Radiology Library at [facility] [place] [address] Beatriz Tovar MD [facility] OBSTETRICS [place] [address] Discharge Disposition: Home Social History Tobacco Use Types Packs/Day Years Used Date Smoking Tobacco: Never Assessed Sex and Gender Information Value Date Recorded Sex Assigned at Not on file Gender Identity Not on file Sexual Orientation Not on file documented as of this encounter Medications at Time of Discharge Medication Sig Dispensed Refills Start Date End Date buPROPion (WELLBUTRIN XL) 300 mg 24 hr tablet Take 300 mg by mouth every morning. NORGESTIMATE-ETHINYL ESTRADIOL (TRINESSA, 28, ORAL) Take by mouth. documented as of this encounter Plan of Treatment Not on file documented as of this encounter Procedures Procedure Name Priority Date/Time Associated Diagnosis Comments FILM LIBRARY STORAGE ONLY CT ABDOMEN AND PELVIS Routine 08/28/2013 12:00 AM EDT documented in this encounter Results * Film Library- Storage Only CT Abdomen & Pelvis (08/28/2013 12:00 AM EDT) Narrative [facility] - 02/24/2018 3:44 AM EST This exam is for storage only and is auto-finalizing. Beatriz Tovar MD IMG FILM LIBRARY ORD ERABLES [place] documented in this encounter Visit Diagnoses Not on filedocumented in this encounter
--- OUTSIDE RECORDS SUMMARY | 2024-05-04 11:06 | XMS_ITS | Encounter Summary ---
Author Organization Formerly [facility] Address One [facility] [place] [address] Care Team Providers Care Financial Supervisor Name Role Phone Nancy Jackson MD Primary Care Provider [phone] Encounter Details Date Type Department Care Team (Late st Contact Info) Description 10/24/2008 Orders Only Dermatology at [place] [address] [facility] [place] [address] Timmy Marr MD [address] [facility], [place] [address] Social History Tobacco Use Types Packs/Day Years Used Date Smoking Tobacco: Never Assessed Sex and Gender Information Value Date Recorded Sex Assigned at Not on file Gender Identity Not on file Sexual Orientation Not on file documented as of this encounter Plan of Treatment Not on file documented as of this encounter Procedures Procedure Name Priority Date/Time Associated Diagnosis Comments SURGICAL PATHOLOGY REPORT Routine 10/24/2008 6:00 PM EDT documented in this encounter Results * Surgical Pathology Report (10/24/2008 6:00 PM EDT) Surgical Pathology Report [id number] ? Location: [facility] The signing pathologist has (i) examined the relevant preparation(s) for the specimen(s) and (ii) rendered or confirmed the diagnosis(es). . ?Pathology Surgical Pathology Final Report Clinical Information Specimen Submitted: Meredith Baker) nasal ala, Shave: Clinical History: 2 adjacent fibrous papules Clinical Diagnosis: Fibrous papules x 2 of nose Report to: Timmy Marr MD, III [facility] [place], [place] ??[address] Gross Description Labeled/Fixativ e: ? Labeled with the patient's name, formalin. Qty/Size/Weight : ?Two, 0.1 cm and 0.2 cm. Tissue Description: ?? Rubbery, conde tissues. Sections/Proces sing: ??(T1) ??aje/EJR Microscopic Description Slides reviewed, microscopic description not recorded. Diagnosis Left nasal ala, two shave biopsies: ??Two fibrous papules. 10/25/08 AEP 10/25/08 Verified by: ? Sia Green MD ?Dermatopathol ogist ?(Electronic Signature) The attending pathologist whose signature appears on this report has reviewed all diagnostic slides and has edited the gross and/or microscopic portion of the report in rendering the final pathologic diagnosis. JEREMIAS GARZA 10/24/2008 6:00 PM EDT Timmy Marr MD PATHOLOGY/CYTOLOGY O RDERAANMOL JEREMIAS GARZA documented in this encounter Visit Diagnoses Not on filedocumented in this encounter Care Teams Financial Supervisor Relationship Specialty Start Date End Date Nancy Jackson MD [address] [place] [address] PCP - General Family Medicine 02/16/18 documented as of this encounter
--- OUTSIDE RECORDS SUMMARY | 2024-05-04 11:06 | XMS_ITS | Encounter Summary ---
Author Organization Formerly [facility] [place] [address] Care Team Providers Care Manager Of Project Management Name Role Phone Nancy Jackson MD Primary Care Provider [phone] Reason for Visit * Auth/Cert Specialty Diagnoses [...] Expiration Date Visits Re quested Visits Authorized [id number] 1 1 Encounter Details Date Type Department Care Team (Latest Contact Info) Description 05/12/2018 6:54 AM EST - 05/12/2018 11:45 AM [facility] Hospital Encounter [place] [address] Beatriz Tovar MD [facility] [place] [address] Postmenopausal bleeding Discharge Disposition: Home Social History Tobacco [...] Sign Reading Time Taken Comments Blood Pressure 125/78 05/12/2018 11:00 AM EST Pulse 79 05/12/2018 7:07 AM EST Temperature 36 ??C (96.8 ??F) 05/12/2018 10: 25 AM EST Respiratory Rate 17 05/12/2018 7:07 AM EST Oxygen Saturation 96% 05/12/2018 11: 15 AM EST Inhaled Oxygen Concentration - - [...] an egg. *Please call the Department of WEDDING PHOTOGRAPHER @ [phone] for any problem that concerns you. If [...] for Visit: 52 y.o. Female presents to [facility] with PMB requiring hysteroscopy and D&C. History of Present Illness: Patient reports having a history of PMB. She passes clots, wears a pad daily, and this has been going on for 10 months.At [facility], provider was unable to biopsy in [...] the ovaries. Fibroids- were smaller. 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 Lives with . Has 2 children. Immunizations: [...] EST Operative Note ?? Patient Name: Jennifer Whitfield : [id number] MR#: [id number] ?? Case Date: 05/12/2018 ?? Surgeon: Surgeon(s) [...] Unknown or N/A)? unknown ? Currently on SWEAT BAND SEPARATOR hormones (estrogen/proGESTerone compounds)? No ? Hysterectomy? No ? No ? No ? IUD? No ? Pelvic radiation? No ? Prior SWEAT BAND SEPARATOR therapy? ([facility] bx, Cautery, Cryotherapy, Surgery) No [...] with a history of postmenopausal bleeding. At [facility], provider was unable to biopsy in [...] was placed in dorsal lithotomy position in [facility] in a neurologically neutral position and was [...] The cervix was serially dilated to 21 Pashto with ultrasound guidance due to tortuous cervical [...] in a stable condition. Dr. Tovar, Attending Painter, was present for the procedure in its entirety without conflicting responsibilities. Rain Boone MD PGY-1 05/12/2018 I was present and participated with the resident for the entire procedure, and agree with documentation above. Beatriz Tovar MD * Brief Op Note - Beatriz Tovar MD - 05/12/2018 10:13 AM EST Brief Operative Note Patient Name: Jennifer Whitfield : [id number] MR#: [id number] Case Date: 05/12/2018 Surgeon: Surgeon(s) and Role: [...] mm/dd/yy, Unknown or N/A)? unknown Currently on SWEAT BAND SEPARATOR hormones (estrogen/proGESTerone compounds)? No Hysterectomy? No ? No ? No IUD? No Pelvic radiation? No Prior SWEAT BAND SEPARATOR therapy? (Cone bx, Cautery, Cryotherapy, Surgery) No [...] Comments HPV Routine 05/12/2018 10:12 AM EST SWEAT BAND SEPARATOR CYTOLOGY INTERPRETATION Routine 05/12/2018 10:12 AM EST SWEAT BAND SEPARATOR CYTOLOGY FINAL REPORT Routine 05/12/2018 10:12 AM [...] bleeding documented in this encounter Results * Vacuum Tester Cans Cytology Final Report (05/12/2018 10:12 AM EST) Vacuum Tester Cans Cytology Final Report [id number] ? Location: [facility]; [facility]; The signing pathologist has (i) examined the relevant preparation(s) for the specimen(s) and (ii) rendered or confirmed the diagnosis(es). . ? Vacuum Tester Cans Final DIAGNOSIS Normal Negative for intraepithelial lesion or malignancy (NILM). For consensus guidelines for the management of cervical cancer screening test results, please see: ?? http://www.asccp.o rg . Electronically signed by: ??SHASHA Mi(ASCP)Shellie Verified: ??05/25/2018 ?Stamp Clerk Performed at: ??-[facility] Dept. of Pathology, [place], [place] DISCUSSION Obscuring lubricant residue noted. HPV [...] intended to detect low risk HPV types. Serstech zuleika HPV test Specimen: HPV Testing - Cytology Liquid Based Prep The Hayder zuleika ? HPV test was validated, performed and results reported through the [facility] for Clinical Genomics and Advanced Technology (CGAT) at [facility]. ? - Addy Moscoso, PhD, [facility], Director-[facility] STATEMENT OF ADEQUACY Specimen submitted is satisfactory. Endocervical component present. CLINICAL INFORMATION HPV Option: ?Concurrent HPV and Pap CT/NG Option: ?? No Preparation: ? Liquid based Pap Specimen Source: ? Cervical/Endocervi win LMP: ? unknown Hormones?: ? No Hysterectomy?: ? No ?: ? No ?: ? No I.U.D.?: ? No Pelvic Radiation: ?No Prior SWEAT BAND SEPARATOR Therapy?: ?No Hist Abnl Pap/Biopsy?: ?? No Hist of HPV Vaccine?: ?No Hist of Smoking?: ?No Hist of VERITO exposure?: ?? No . CLINICAL INFORMATION ICD Diagnosis: ? N95.0 PM bleeding Clinical Data, Significant Therapy and Clinical Impression ?? : ?Postmenopausal bleeding This Pap Test has been evaluated with the assistance of the BlueNote NetworksPrep Pap Test Imaging System. Note: The Pap test is a screening test for cervical cancer with an inherent false-negative rate dependent upon several variables. For further information please contact the [facility] Laboratory. Reference: Jc FOURNIER. Salad Chef of Pap Smear Results. In: Herminia BS, Corey HH, ed. The Pap Smear. [facility]: Jeremiah, 2002: 71-77. [facility] 05/12/2018 10:1 2 AM EST Beatriz Tovar MD PATHOLOGY/CYTOLOGY O WENDI Performing Organization Address [facility] de Phone Number [facility] [place] [address] * SWEAT BAND SEPARATOR Cytology Interpretation (05/12/2018 10:12 AM EST) Vacuum Tester Cans Cytology Interpretation [facility] Comment:Vacuum Tester Cans Cytology Final R eport Vacuum Tester Cans Cytology Comment Present [facility] Endocervical Component Present [facility] AP Specimen 05/12/2018 10:1 2 AM EST 05/25/2018 5:11 PM EST Beatriz Tovar MD PATHOLOGY/CYTOLOGY O WENDI Performing Organization Address [facility] Co de Phone Number [facility] [place] [address] * HPV (05/12/2018 10:12 AM EST) HPV16 NEGATIVE NEGATIVE [facility] HPV 18 NEGATIVE NEGATIVE [facility] HPV Other HR NEGATIVE NEGATIVE [facility] HPV Interpretation See Comment [facility] Comment: NEGATIVE for high-risk HPV [...] MD PATHOLOGY/CYTOLOGY O WENDI Performing Organization Address City/[facility]/ZIP Co de Phone Number [facility] [place] [address] * Cytopathology Gynecological (05/12/2018 10:12 AM EST) AP Specimen 05/12/2018 10:1 2 AM EST 05/12/2018 10:39 AM EST Narrative [facility] - 05/12/2018 10:39 AM EST Specimen requisition ordered. ??Separate Pathology report to follow Resulting Agency Comment Spec In Lab Beatriz Tovar MD PATHOLOGY/CYTOLOGY O WENDI Performing Organization Address [facility]/ZIP Co de Phone Number [facility] [place] [address] * Specimen to Pathology (05/12/2018 10:04 AM EST) AP Specimen 05/12/2018 10:0 4 AM EST 05/12/2018 10:04 AM EST Narrative [facility] - 05/12/2018 10:04 AM EST Specimen requisition ordered. ??Separate Pathology report to follow Beatriz Tovar MD PATHOLOGY/CYTOLOGY O WENDI Performing Organization Address City/[facility]/ZIP Co de Phone Number [facility] [place] [address] * Specimen to Pathology (05/12/2018 10:04 AM EST) AP Specimen 05/12/2018 10:0 4 AM EST 05/12/2018 10:04 AM EST Narrative [facility] - 05/12/2018 10:04 AM EST Specimen requisition ordered. ??Separate Pathology report to follow Beatriz Tovar MD PATHOLOGY/CYTOLOGY Raissa ADAME MANISHA [facility] [place] [address] documented in this encounter Visit Diagnoses Diagnosis Postmenopausal bleeding documented in this encounter Administered [...] Routine 07 (Given - Provid er: Lizbet Wang RN) nalOXone (NARCAN) injection 0.04 mg 0.04 mg, [...] Routine documented in this encounter Care Teams Manager Of Project Management Relationship Specialty Start Date End Date Nancy Jackson MD [address] [place] [address] PCP - General Family Medicine 02/16/18 documented as of this encounter
--- OUTSIDE RECORDS SUMMARY | 2024-05-04 11:06 | XMS_ITS | Encounter Summary ---
Author Organization [facility] [address] Care Team Providers Care Information Assoc Name Role Phone Nancy Jackson MD Primary Care Provider [phone] Reason for Visit * Reason Comments Post Op Encounter Details Date Type Department Care Team (Late st Contact Info) Description 06/19/2018 10:15 AM EDT Office Visit Obstetrics [place] [address] Beatriz Tovar MD [facility] [address] [place] [address] Other urinary incontinence; Postop check Social History Tobacco Use Types Packs/Day Years [...] Sign Reading Time Taken Comments Blood Pressure 126/81 06/19/2018 10:00 AM EDT Pulse 69 06/19/2018 10:00 AM EDT Temperature 36.6 ??C (97.9 ??F) 06/19/2018 1 0:00 AM EDT Respiratory Rate 18 06/19/2018 10:0 0 AM EDT Oxygen Saturation 98% 06/19/2018 10: 00 AM EDT Inhaled Oxygen Concentration - - Weight 91.6 kg (201 lb 14.4 oz) 019 10:00 AM EDT Height 161.3 cm (5' 3.5) 06/19/2018 10 :00 AM EDT Body Mass Index 35.2 06/19/2018 10:00 AM EDT documented in this encounter Progress Notes * Beatriz Tovar MD - 06/19/2018 10:15 AM EDT 06/19/18 Postop Case Date:??05/12/2018 ?? Surgeon:??Surgeon(s) and Role: ?* Beatriz Tovar MD - Primary ??Darivemula - asst Preoperative diagnosis:?? 1)??post menopausal bleeding 2)??cervical stenosis??with prior failed attempt at D&C ?? Postoperative diagnosis:?? 1)??post menopausal bleeding 2)??cervical stenosis??with prior failed attempt at D&C 3) endometrial polyps ?? Procedure(s) Pap Ultrasound-guided cervical dilation Operative hysteroscopy with resection of multiple endometrial polyps Dilation and curettage ?? Anesthesia:??General ?? Findings:??On EUA, small mobile RV uterus. ??On dilation, tortuous cervical canal requiring ultrasound guidance for safe dilation. ??On hysteroscopy, 2 polyps hysterosocpically resected: largest (2 cm) polyp from left anterior uterus at 2 oclock. ??Second polyp behind this one (closer to fundus) at3-4 o'clock. ??Remaining polypoid endometrial tissue removed via curettage. ??Bilateral tubal ostiaseen with no remaining cavitary lesions. ?? Complications:??none ?Indication for Performed Surgery: The patient is a 52 y.o. P0 with a history of postmenopausal bleeding. At [facility], provider was unable to biopsy in office, and she was referred for a D&C. Plan was made for hysteroscopy for evaluation of polyp versus malignancy. Patient was counseled regarding risks, benefits, and alternatives, all questions were answered, and surgical consent was signed in [facility] office. Surgical Pathology DIAGNOSIS A - Endometrial currettings: 1. Minute fragments of benign atrophic endometrium intermixed with endocervical mucosa and blood clot. 2. No evidence of hyperplasia or endometritis. B - Uterine polyp, curettings: Fragments of benign endometrial polyp(s). 05/12/18 cytology NILM HPV neg (noted no hx abnls) S: Notes doing well with recovery and no issues. No further PMB noted. Wants to talk abotu urinary incontinence. Notes getting up 2-3 at night to go to the bathroom. Leaking urine - ongoing sin Describes leak with cough/sneeze and with urgency - wearing poise pads. - started kegel exercise Has done PT in the past. While doing PT on back, did kegels then. (not pelvic pt; difference explained) - this is not the bothersome part of it - the most bothersome is getting up at night BP 126/81 (BP Location (NBP): Right arm, Patient Position: Sitting, BP Cuff Sizes: Large Adult (32-43 cm)) Pulse 69 Temp 36.6 ??C (97.9 ??F) (Oral) Resp 18 Ht 161.3 cm (5' 3.5) Wt 91.6 kg (201 lb 14.4 oz) SpO2 98% BMI 35.20 kg/m?? Physical Exam: On exam she appeared in good health and in no acute distress. Neurological: She is alert and oriented to person, place, and time. Psychiatric: She has a normal mood and affect. Her behavior is normal. Thought content normal. Head was grossly normocephalic. Neck no thyromegaly or lymphadeopathy. UA: trace leuks only, otherwise neg A/Plan Postop HSC, D&C, polypectomy for removal of benign polyps/PMB Path explained No further w/u for PMB, to call if recurs Urinary incontinence, urgency>stress - UA today neg, sent to lab for formal rule out UTI - continue kegels - avoid food/drink for 2-3 h prior to bedtime - trial of ditropan short acting qHS. Discussed side effects, call if need to increase dose - RTO 3 mos - if above ineffective consider pelvic PT, bladder training, avoidance irritants, and concentrating food/drink earlier in day 15 min spent with patient on counseling/coordination of care related to urinary incontinence, apartfrom postop portion of visit. Beatriz Tovar MD documented in this encounter Plan of Treatment Not on file documented as of this encounter Procedures Procedure Name Priority Date/Time Associated Diagnosis Comments URINALYSIS WITH REFLEX CULTURE Routine 06/19/2018 10:15 AM EDT Other urinary incontinence POCT URINE DIPSTICK Routine 06/19/2018 Other urinary incontinence documented in this encounter Results * Urinalysis with reflex Culture (06/19/2018 10:15 AM EDT) Glucose, Urine Dipstick Negative Negative mg/dL [facility] Protein, Urine Dipstick Negative Negative mg/dL [facility] Bilirubin, Urine Dipstick Negative Negative mg/dL [facility] Comment: Clinical correlation required for positive Urine Bilirubin results as false positive may occur with some drugs and drug related products. If a false positive is suspected a serum total bilirubin should be considered if clinically indicated. Urobilinogen, Urine Dipstick Normal Normal mg/dL [facility] pH, Urn (dipstick) 6.0 5.0 - 8.0 [facility] Blood, Urine Dipstick Negative Negative mg/dL [facility] Ketone, Urine Dipstick Negative Negative mg/dL [facility] Nitrite, Urine Dipstick Negative Negative [facility] Leukocytes, Urine Dipstick Negative Negative [facility] Appearance, Urine Dipstick Clear Clear [facility] Specific [place] Urine Automated 1.015 1.002 - 1.030 [facility] Color, Urine Dipstick Straw Yellow [facility] Reflex to Culture No [facility] Urine specimen obtained by clean catch procedure (specimen) 06/19/2018 10:15 AM EDT 06/19/2018 11:49 AM EDT Narrative Resulting Agency Comment Spec In Lab Beatriz Tovar MD URINE ORDERABLES [facility] [place] [address] * POCT urine dipstick (06/19/2018) POC Sp [place] 1.01 1.002 - 1.030 POC pH, UA [...] Blood, UA Negative Negative - Negative tin/uL 06/19/2018 Beatriz Tovar MD POINT OF CARE TEST O WENDI documented in this encounter Visit Diagnoses Diagnosis Other urinary incontinence Postop check Follow-up examination, following unspecified surgery documented in this encounter Care Teams Information Assoc Relationship Specialty Start Date End Date Nancy Jackson MD [address] [place] [address] PCP - General Family Medicine 02/16/18 documented as of this encounter
--- OUTSIDE RECORDS SUMMARY | 2024-05-04 11:06 | XMS_ITS | Encounter Summary ---
[place] [address] Care Team Providers Care Retail Cosmetics Sales Beauty Advisor Name Role Phone Nancy Jackson MD Primary Care Provider [phone] Encounter Details Date Type Department Care Team (Late st Contact Info) Description 05/26/2018 Telephone Obstetrics [place] [phone] Susannah Melendez RN Social History Tobacco Use Types Packs/Day [...] encounter Miscellaneous Notes * Telephone Encounter - Susannah Melendez RN - 05/26/2018 11:07 AM EST Left detailed message on identified voicemail with recent pap smear, HPV and biopsy results. Asked her to call with any questions. documented in this encounter Plan of Treatment Not on file documented as of this encounter Visit Diagnoses Not on filedocumented in this encounter Care Teams Retail Cosmetics Sales Beauty Advisor Relationship Specialty Start Date End Date Nancy Jackson MD [address] [place] [address] PCP - General Family Medicine 02/16/18 documented as of this encounter
--- OUTSIDE RECORDS SUMMARY | 2024-05-04 11:06 | XMS_ITS | Clinical Summary ---
Author Organization [facility] Address One [facility] [place] [address] Care Team Providers Care Venetian Blind Maker Name Role Phone Nancy Jackson MD Primary Care Provider [phone] Allergies Active Allergy Reactions Criticality Noted Date Comments Azithromycin Low 04/03/2018 GI Upset Codeine 01/05/2011 Codeine High 04/03/2018 Hard time breathing and chest pains Propoxyphene N-Acetaminophen 01/05/2011 Propoxyphene N-Acetaminophen Shortness Of Breath High 05/12/2018 Oxycodone-Acetaminophen 01/05/2011 Oxycodone-Acetaminophen High 04/03/2018 Hard time Breathing and chest pains Hydrocodone-Acetaminoph en 01/05/2011 Hydrocodone-Acetaminoph en High 04/03/2018 Hard time breathing and chest pains Medications Medication Sig Dispensed Refills Start Date End Date Status buPROPion (WELLBUTRIN XL) 300 mg 24 hr tablet Take 300 mg by mouth every morning. Active NORGESTIMATE-ETHIN YL ESTRADIOL (TRINESSA, 28, ORAL) Take by mouth. Active acyclovir (ZOVIRAX) 400 mg Tablet 03/13/2018 Active buPROPion (WELLBUTRIN XL) 150 mg Tablet Extended Release 24 hr TAKE ONE TABLET BY MOUTH TWICE A DAY 3 01/09/2018 Active cetirizine (ZYRTEC) 10 mg Tablet TAKE ONE TABLET BY MOUTH AT BEDTIME 3 01/10/2018 Active gabapentin (NEURONTIN) 100 mg Capsule TAKE TWO CAPSULES BY MOUTH AT BEDTIME 3 01/09/2018 Active polyethylene glycol (MIRALAX) 17 gram/dose Powder 1 CAPFUL MIXED IN 8 OUNCES OF LIQUID BY MOUTH ONCE DAILY NEEDED FOR CONSTIPATION 11 01/09/2018 Active zolpidem (AMBIEN) 5 mg Tablet Take 5 mg by mouth nightly as needed for Sleep. Active diazePAM (VALIUM) 5 mg Tablet Take 5 mg by mouth every 6 hours as needed for Anxiety. Active rizatriptan (MAXALT) 10 mg Tablet Take 10 mg by mouth as needed for Migraine. Initial dose: 5 to 10 mg. May repeat dose after 2 hours. Max daily dose: 30 mg Active acetaminophen (TYLENOL) 325 mg Tablet Take 2 tablets by mouth every 6 hours as needed for Pain. 30 tablet 05/12/2018 Active ibuprofen (ADVIL;MOTRIN) 200 mg Tablet Take 3 tablets by mouth every 6 hours as needed for Pain. 30 tablet 05/12/2018 Active oxybutynin (DITROPAN-XL) 10 mg Tablet Extended Rel 24 hr Take 1 tablet by mouth daily. 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 Breast Cancer Maternal Aunt Relation Status Comments Father Maternal Aunt Social History Tobacco Use Types Packs/Day Years Used Date Smoking Tobacco: Former Smokeless Tobacco: Never Alcohol Use Standard Drinks/Week Comments No 0 (1 standard drink = 0.6 oz pur e alcohol) Sex and Gender Information Value Date Recorded Sex Assigned at Not on file Gender Identity Not on file Sexual Orientation Not on file Last Filed Vital Signs Vital Sign Reading [...] Mass Index 35.67 09/20/2018 8:29 AM EDT Plan of Treatment Health Maintenance Due Date Last Done Comments CT Colonography 1965 Colonoscopy 1965 Colorectal Cancer Screening 1965 FIT DNA 1965 FIT 1965 Sigmoidoscopy (10 year) with FIT yearly 1965 Sigmoidoscopy 1965 HIV screen 09/11/1981 Hepatitis C Screening 09/11/1981 Tetanus/Diphtheria/Pertussis Vaccines (1 - Tdap) 09/11 Breast Cancer Share Decision Needed 2003 Breast Cancer screening 2003 Pneumoccocal Vaccine: 50+ (1 of 1 - PCV) 09/11/2013 Zoster vaccine (1 of 2) 09/11/2013 Advance Directive 09/11/2018 HPV test 05/12/2023 05/12/2018 PAP Smear 05/12/2023 05/12/2018 Covid-19 Vaccine ( - 2023-25 season) 2023 Influenza (Flu) vaccine (1 o f 1 - Influenza standard series) 12/04/2023 Procedures Procedure Name Priority Date/Time Associated Diagnosis Comments HPV Routine 05/12/2018 10:12 AM EST DINING SERVICES MANAGER CYTOLOGY FINAL REPORT Routine 05/12/2018 10:12 AM EST from Last 3 Months or Most Recently Relevant to Health Maintenance Results * HPV (05/12/2018 10:12 AM EST) HPV16 NEGATIVE NEGATIVE [facility] HPV 18 NEGATIVE NEGATIVE [facility] HPV Other HR NEGATIVE NEGATIVE [facility] HPV Interpretation See Comment [facility] Comment: NEGATIVE for high-risk HPV *. [...] Spec In Lab Beatriz Tovar MD PATHOLOGY/CYTOLOGY Raissa ADAME [facility] [place] [address] * Service Coordinator Elderly Facility Cytology Final Report (05/12/2018 10:12 AM EST) Service Coordinator Elderly Facility Cytology Final Report [id number] ? Location: [facility]; [facility]; The signing pathologist has (i) examined the relevant preparation(s) for the specimen(s) and (ii) rendered or confirmed the diagnosis(es). . ? Service Coordinator Elderly Facility Final DIAGNOSIS Normal Negative for intraepithelial lesion or malignancy (NILM). For consensus guidelines for the management of cervical cancer screening test results, please see: ?? http://www.asccp.o rg . Electronically signed by: ??SHASHA Mi(ASCP)Shellie Verified: ??05/25/2018 ?Clinical Recruiter Performed at: ??-[facility] Dept. of Pathology, [place], [place] DISCUSSION Obscuring lubricant residue noted. HPV [...] to detect low risk HPV types. Hayder zuleika HPV test Specimen: HPV Testing - Cytology Liquid Based Prep The Hayder zuleika ? HPV test was validated, performed and results reported through the [facility] ([facility]) at [facility]. ? - Addy Moscoso, PhD, [facility], Director-[facility] STATEMENT OF ADEQUACY Specimen submitted is satisfactory. Endocervical component present. CLINICAL INFORMATION HPV Option: ?Concurrent HPV and Pap CT/NG Option: ?? No Preparation: ? Liquid based Pap Specimen Source: ? Cervical/Endocervi win LMP: ? unknown Hormones?: ? No Hysterectomy?: ? No ?: ? No ?: ? No I.U.D.?: ? No Pelvic Radiation: ?No Prior DINING SERVICES MANAGER Therapy?: ?No Hist Abnl Pap/Biopsy?: ?? No Hist of HPV Vaccine?: ?No Hist of Smoking?: ?No Hist of VERITO exposure?: ?? No . CLINICAL INFORMATION ICD Diagnosis: ? N95.0 PM bleeding Clinical Data, Significant Therapy and Clinical Impression ?? : ?Postmenopausal bleeding This Pap Test has been evaluated with the assistance of the ITS KOOLp Pap Test Imaging System. Note: The Pap test is a screening test for cervical cancer with an inherent false-negative rate dependent upon several variables. For further information please contact the [facility] Laboratory. Reference: Jc FOURNIER. Metal Sheet Roller Operator of Pap Smear Results. In: Herminia BS, Corey HH, ed. The Pap Smear. [place]: Jeremiah, 2002: 71-77. [facility] 05/12/2018 10:1 2 AM EST Beatriz Tovar MD PATHOLOGY/CYTOLOGY O WENDI [facility] [place] [address] from Last 3 Months or Most Recently Relevant to Health Maintenance Care Teams Venetian Blind Maker Relationship Specialty Start Date End Date Nancy Jackson MD [address] [place] [address] PCP - General Family Medicine 02/16/18
--- OUTSIDE RECORDS SUMMARY | 2024-05-04 11:06 | XMS_ITS | Encounter Summary ---
Author Organization [facility] Address [facility] [place] [address] Care Team Providers Care Bearing Inspector Name Role Phone Unavailable Primary Care Provider Unavailabl e Encounter Details Date Type Department Care Team (Latest Contact Info) Description 12/08/2017 - 12/08/2017 11:59 PM EDT Hospital Encounter Radiology Library at [facility] [place] [address] Beartiz Tovar MD [facility]ST[facility] [place] [address] Discharge Disposition: Home Social History Tobacco Use [...] Associated Diagnosis Comments FILM LIBRARY STORAGE ONLY ULTRASOUND STUDY Routine 12/08/2017 12:00 AM EDT documented in this encounter Results * Film Library- Storage Only Ultrasound Study (12/08/2017 12:00 AM EDT) Narrative [facility] - 02/16/2018 9:04 PM EST This exam is for storage only and is auto-finalizing. Beatriz Tovar MD IMG FILM LIBRARY ORD ERABLES REYES Brandt documented in this encounter Visit Diagnoses Not on filedocumented in this encounter
--- OUTSIDE RECORDS SUMMARY | 2024-05-04 11:06 | XMS_ITS | Clinical Summary ---
Author Organization [facility] Address [address] [place] [address] Care Team Providers Care Superintendent Quarry Name Role Phone Suzan Bojorquez MD Primary Care Provider [phone] Social History Tobacco Use Types Packs/Day Years Used Date Smoking Tobacco: Never Assessed Interpersonal Safety Answer Date Record ed Physically Hurt Never 11/04/2019 Verbally Threaten Not on file 11/04/2019 Comments Unknown Sex and Gender Information Value Date Recorded Sex Assigned at Not on file Legal Sex Female 18:18 EST Gender Identity Not on file Sexual Orientation Not on file Plan of Treatment Health Maintenance Due Date Last Done Comments Hepatitis C Screen 1965 COVID-19 Vaccine (2023-25 season) 2023 RSV Immunization ( o r 60+ Years) (1 - 1-dose 75+ series) 09/11/2038 Care Teams Superintendent Quarry Relationship Specialty Start Date End Date Suzan Bojorquez MD [address] [place] [phone] PCP - General 01/28/15
--- OUTSIDE RECORDS SUMMARY | 2024-05-04 11:06 | XMS_ITS | Encounter Summary ---
Author Organization [facility] [place] [address] Care Team Providers Care Rim Roller Operator Name Role Phone Unavailable Primary Care Provider Unavailabl e Reason for Visit * Reason Comments Skin Lesion Rash Encounter Details Date Type Department Care Team (Late st Contact Info) Description 01/05/2011 2:50 PM EDT Office Visit Dermatology [address] [place] [address] [address] [place] [address] Timmy Marr MD [address] [facility] [place] [address] Tinea cruris (Primary Dx); Hemangioma Social History Tobacco Use Types Packs/Day Years Used Date Smoking Tobacco: Never Sex and Gender Information Value Date Recorded Sex Assigned at Not on file Gender Identity Not on file Sexual Orientation Not on file documented as of this encounter Progress Notes * Timmy Marr MD - 01/05/2011 3:28 PM EDT Problem: Skin rash. Jennifer follows up for a dermatitis of some two years duration on again/off again in the inner thighs. It has not gotten better in fact perhaps worsened with the use of Mycolog/Triamcinolone Cream. She also has a lesion on her left thumb that she would like me to check. Physical examination reveals a hemangioma on the left thumb. It blanches with diascopy. She has LOREN positive scaling with a serpiginous raised margin on the inguinal folds bilaterally consistent with tinea cruris. Assessment & Plan: Tinea cruris. a. Discussed diagnosis and treatment with Clotrimazole 1% Cream apply BID to affected area for a week to clear and then D/C. b. Be sure to discontinue Mycolog/Triamcinolone Cream. c. Discussed how this may be a recurrent problem and that she may use the Clotrimazole Cream in the future if needed. Hemangioma, left thumb. a. Patient reassured about the hemangioma. b. No treatment necessary. It is asymptomatic and not raised. It does not bleed. c. If it does become symptomatic would then recommend electrodesiccation. d. RTC p.r.n. Cc: ALLAN Erwin documented in this encounter Plan of Treatment Not on file documented as of this encounter Visit Diagnoses Diagnosis Tinea cruris- Primary Dermatophytosis of groin and perianal area Hemangioma Hemangioma of unspecified site documented in this encounter
--- OUTSIDE RECORDS SUMMARY | 2024-05-04 11:06 | XMS_ITS | Encounter Summary ---
Author Organization [facility] Address [facility] [place] [address] Care Team Providers Care Actuarial Analyst Name Role Phone Unavailable Primary Care Provider Unavailabl e Encounter Details Date Type Department Care Team (Latest Contact Info) Description 10/02/2013 - 10/02/2013 11:59 PM EDT Hospital Encounter Radiology Library at [facility] [place] [address] Beatriz Tovar MD [facility] OBSTETRICS [place] [address] Discharge Disposition: Home Social History Tobacco Use [...] FILM LIBRARY STORAGE ONLY ULTRASOUND STUDY Routine 10/02/2013 12:00 AM EDT documented in this encounter Results * Film Library- Storage Only Ultrasound Study (10/02/2013 12:00 AM EDT) Narrative [facility] - 02/24/2018 3:44 AM EST This exam is for storage only and is auto-finalizing. Beatriz Tovar MD IMG FILM LIBRARY ORD ERABLES REYES Brandt documented in this encounter Visit Diagnoses Not on filedocumented in this encounter
--- OUTSIDE RECORDS SUMMARY | 2024-05-04 11:06 | XMS_ITS | Encounter Summary ---
Author Organization [facility] [place] [address] Care Team Providers Care Petroleum Refinery Laborer Name Role Phone Nancy Jackson MD Primary Care Provider [phone] Reason for Visit * Auth/Cert Specialty Diagnoses [...] Expiration Date Visits Re quested Visits Authorized [id number] 1 1 Encounter Details Date Type Department Care Team (Late st Contact Info) Description 05/12/2018 8:38 AM EST Anesthesia Event [place] [address] Jay Jay Garay MD [facility] [place] [address] Anesthesia Record Procedure Summary Procedure Name Responsible Anesthesiologist Anesthesia Start Time Anesthesia Stop Time HYSTEROSCOPY, DIAGNOSTIC (WRVU 2.65) (Uterus) Jay Jay Garay MD 05/12/18 0838 05/12/18 1027 Events Date Time Event Comment 05/12/2018 0810 0838 AN Verify 0838 Start 0838 An Start Data 0841 An Induction 0844 An Intubation 0845 Anesthesia Ready Discussed w ith surgeon, no Abx indicated. 0947 Quick Note Room temp up, w arm blankets added 1016 Extubation/LMA Out 1024 an stop data 1027 Recovery or ICU Handoff Koki ent care was transferred to the destination unit staff after review of the patient's medical history, current anesthetic/surgical status and plan, according to the Provider Handoff Checklist. 1027 Stop Meds Name Total Propofol 290 mg Propofol INF 940.66 mg Midazolam 2 mg IV Lidocaine 100 mg Dexamethasone 8 mg Ondansetron 4 mg ePHEDrine 5 mg PHENYLephrine 40 mcg Dexmedetomidine 20 mcg ketorolac (TORADOL) injection 30 mg 15 m g Lactated Ringers 900 mL * Agents Name O2 Air N2O Sevoflurane (et) * Blood No blood administrations on file. Lines, Drains, and Airways Type Details Placement Removal (RETIRED) Peripheral IV Line - Single Lumen 05/12/18; 07; basilic vein (medial side of arm), right; [id number] catheter system; 20 gauge, 1 in length; distraction, intradermal injection, tolerated well, appears comfortable; 05/12/18; 1139 05/12/18 0724 by Lizbet Wang RN 05/12/18 1139 by Ivana Wynne RN Supraglottic Mask Ventilation: Devyn salazar (1); LMA Type: iGel; LMA Size: 4; Inserted by: leana; Removal Date: 05/12/18; Removal Time: 1016 05/12/18 0844 by Piotr Parrish MD 05/12/18 1016 by Piotr Parrish MD Urethral Catheter 05/12/18; 0913; indwelling double lumen catheter; 100% silicone, latex; 14; inserted at this facility; 1; 10; 10; 05/12/18; 1005 05/12/18 0913 by Jocelyn Apodaca RN 05/12/18 1005 by Jocelyn Apodaca RN documented in this encounter Social History Tobacco Use Types Packs/Day Years Used Date Smoking Tobacco: Former Smokeless Tobacco: Never Alcohol Use Standard Drinks/Week Comments No 0 (1 standard drink = 0.6 oz pur e alcohol) Sex and Gender Information Value Date Recorded Sex Assigned at Not on file Gender Identity Not on file Sexual Orientation Not on file documented as of this encounter OR Notes * Anesthesia Postprocedure Evaluation - Piotr Parrish MD - 05/12/2018 10:32 AM EST [facility] Department of Anesthesiology Post-procedure Note Patient: Jennifer Whitfield Procedure Summary Date: 05/12/18 Room / Location: [address] MAIN OR Anesthesia Start: 837 Anesthesia Stop: 1026 Procedures: HYSTEROSCOPY, DIAGNOSTIC (WRVU 3.33) (N/A Uterus) DILATION & CURETTAGE, DIAG OR THERAPEUTIC, NONOBSTETRICAL (WRVU 3.59) (N/A Uterus) PELVIC EXAM UNDER ANESTHESIA (WRVU 1.75) (N/A Perineum) HYSTEROSCOPY, SURG W/ENDOMETRIAL SAMPLING, POLYPECTOMY (WRVU 4.74) (N/A Uterus) ULTRASOUND,INTRAOP, ABDOMINAL, COMPLETE (WRVU 0.81) (N/A Abdomen) Diagnosis: Postmenopausal bleeding (post menopausal bleeding, cervical stenosis) Surgeon: Beatriz Tovar MD Responsible Provider: Jay Jay Garay MD Anesthesia Type: general ASA Status: 2 All Anesthesia Providers: Anesthesiologist: Jay Jay Garay MD Stained Glass Artist: Piotr Parrish MD Vitals Value Taken Time BP 116/72 05/12/2018 10:30 AM Temp Pulse Resp SpO2 99 % 05/12/2018 10:31 AM Pain Level Vitals shown include unvalidated device data. Patient Location: PACU/[facility] Level of Consciousness: Conscious but Sleepy Pain Management: Satisfactory Analgesia PONV: None Cardiovascular Status: Hemodynamically Stable Respiratory Status: Supplemental O2 (NC or FM) Postoperative Fluid Status: Possible Anesthetic Complications: NONE apparent at time of evaluation Final Primary Anesthesia Type: General (The anesthetic type performed was the same as planned.) Comments: * Anesthesia Preprocedure Evaluation - Jay Jay Garay MD - 05/11/2018 6:21 PM EST Pre-Anesthesia Evaluation for: Jennifer Whitfield a 52 y.o. female. Procedure(s): HYSTEROSCOPY, DIAGNOSTIC (WRVU 3.33) DILATION & CURETTAGE, DIAG OR THERAPEUTIC, NONOBSTETRICAL (WRVU 3.59) PELVIC EXAM UNDER ANESTHESIA (WRVU 1.75) HYSTEROSCOPY, SURG W/ENDOMETRIAL SAMPLING, POLYPECTOMY (WRVU 4.74) ULTRASOUND,INTRAOP, ABDOMINAL, COMPLETE (WRVU 0.81) Patient Active Problem List Diagnosis ??? Migraine ??? Depression ??? Diverticulitis of large intestine with perforation Had an infection requiring resection of 7 of colon as well as one fallopian tube ??? Plantar fasciitis ??? 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 Environmental allergies ??? Myofascial pain ??? Postmenopausal bleeding No past medical history on file. Past Surgical History: Procedure Laterality Date ??? COLECTOMY 2008 7 of colon and a fallopian tube removed for diverticuitis ??? TEAR DUCT SURGERY 2005 Social History Tobacco Use ??? Smoking status: Former Smoker ??? Smokeless tobacco: Never Used Substance Use Topics ??? Alcohol use: No Frequency: Never Social History Substance and Sexual Activity Drug Use No Allergies Allergen Reactions ??? Codeine Hard time breathing and chest pains ??? Percocet [Oxycodone-Acetaminophen] Hard time Breathing and chest pains ??? Vicodin [Hydrocodone-Acetaminophen] Hard time breathing and chest pains ??? Azithromycin GI Upset Medications: MAR and/or home medications have been reviewed. Physical Exam: There were no vitals filed for this visit. There is no height or weight on file to calculate BMI. Airway Assessment: Mallampati: II TM distance: >3 FB Neck ROM: full Cardiovascular Assessment: cardiovascular exam normal Pulmonary Assessment: pulmonary exam normal Dental Assessment: - normal exam Comment: No loose teeth per patient. Misc Assessment: IV access: Peripheral line Anesthesia Plan: ASA 2 general, with a(n) intravenous induction 52 y.o. female with post-menopausal bleeding presenting for hysteroscopy and D&C. PMH significant for migraine, depression, diverticulitis s/p colectomy. Anesthetic hx: No reported prior complications with anesthesia. Has tolerated GA with no problems. Reports that she had had IV hydromorphone in the past with no problems. Airway hx: no records Exercise tolerance: greater than 4 METs No results for input(s): ABORH in the last 7068 hours. Allergies: -- Codeine -- Hard time breathing and chest pains -- Percocet (Oxycodone-Acetaminophen) -- Hard time Breathing and chest pains -- Vicodin (Hydrocodone-Acetaminophen) -- Hard time breathing and chest pains -- Azithromycin -- GI Upset NPO Status: Appropriate Anesthetic Plan: GA with LMA, PIV, standard monitors. Attending Assessment: Patient personally seen and examined. 52yo F with postmenopausal bleeding presenting for hysteroscopy, D&C. PMH: diverticulitis s/p colectomy, depression, migraine, myofascial pain No cardiac or pulmonary problems. No recent URI. Former smoker No GERD (asymptomatic in preop). No problems with anesthesia in the past. No motion sickness. Meds: reviewed, includes gabapentin All: Patient reports feeling SOB, difficulty breathing as if throat is tight, after taking either Percocet or Vicodin. No problems with Dilaudid or Tylenol; unsure if she has received fentanyl in thepast. NPO status adequate Last value Range last 24 hrs Heart Rate Heart Rate: 79 Heart Rate: (79) Blood Pressure BP: 137/71 BP: (137)/(71) Respiratory Rate Resp: 17 Resp: (17) SpO2 SpO2: 96 % SpO2: (96 %) Plan: - preop Tylenol (has tolerated Tylenol before) - standard ASA monitors, PIV - GA with LMA The patient was informed of the risks, benefits and alternatives of anesthesia. These risks included, but were not limited to, post-operative nausea and/or vomiting, pain, sore throat, dental/lip injury, and other rare but serious complications such as cardiac instability/arrest, neurologic event, awareness, severe allergic reactions, position-related nerve injuries, and need blood transfusions. All questions sought and answered. Consent was signed and placed in chart. Jay Jay Garay MD 05/12/2018 Region - Other Informed Consent: Anesthetic plan and risks discussed with patient. Plan discussed with resident and attending. PAT Staff Note documented in this encounter Plan of Treatment Not on file documented as of this encounter Visit Diagnoses Not on filedocumented in this encounter Administered Medications Inactive Administered Medications - up to 3 most recent administrations Medication Order MAR Action Action Date Dose Rate Site dexamethasone (DECADRON) injection Intravenous, PRN, Starting on Tue05/12/18 at 0856, Until Tue05/12/18 at 1031, Anesthesia Intra-op, Routine Given 05/12/2018 8:56 AM EST 8 mg dexmedetomidine (PRECEDEX) injection PRN, Starting on Tue05/12/18 at 0847, Until Tue05/12/18 at 1031, Anesthesia Intra-op, Routine Given 05/12/2018 10:04 AM EST 4 mcg Given 05/12/2018 9:48 AM EST 4 mcg Given 05/12/2018 9:43 AM EST 4 mcg ePHEDrine 5 mg/mL multi-dose injection Intravenous, PRN, Starting on Tue05/12/18 at 0914, Until Tue05/12/18 at 1031, Anesthesia Intra-op, Routine Given 05/12/2018 9:14 AM EST 5 mg ketorolac (TORADOL) injection PRN, Starting on Tue05/12/18 at 1009, Until Tue05/12/18 at 1031, Anesthesia Intra-op, Routine Given 05/12/2018 10:09 AM EST 15 mg lactated Ringers infusion CONTINUOUS PRN, Starting on Tue05/12/18 at 0838, Until Tue05/12/18 at 1032, Anesthesia Intra-op New Bag 05/12/2018 8:38 AM EST lidocaine (PF) (XYLOCAINE) 100 mg/5 mL (2 %) injection Intravenous, PRN, Starting on Tue05/12/18 at 0841, Until Tue05/12/18 at 1031, Anesthesia Intra-op, Routine Given 05/12/2018 8:41 AM EST 100 mg midazolam (PF) (VERSED) multi-dose injection Intravenous, PRN, Starting on Tue05/12/18 at 0830, Until Tue05/12/18 at 1031, Anesthesia Intra-op, Routine Given 05/12/2018 8:30 AM EST 2 mg ondansetron (ZOFRAN) injection Intravenous, PRN, Starting on Tue05/12/18 at 1007, Until Tue05/12/18 at 1031, Anesthesia Intra-op, Routine Given 05/12/2018 10:07 AM EST 4 mg PHENYLephrine in NS (PF) (TRISHA-SYNEPHRINE) 0.8 mg/10 mL (80 mcg/mL) multi-dose injection Syrg Intravenous, PRN, Starting on Tue05/12/18 at 0905, Until Tue05/12/18 at 1031, Anesthesia Intra-op, Routine Given 05/12/2018 9:05 AM EST 40 mcg propofol (DIPRIVAN) 10 mg/mL bolus injection (Anesthesia) Intravenous, PRN, Starting on Tue05/12/18 at 0842, Until Tue05/12/18 at 1031, Anesthesia Intra-op Given 05/12/2018 10:04 AM EST 20 mg Given 05/12/2018 8:55 AM EST 20 mg Given 05/12/2018 8:46 AM EST 50 mg propofol (DIPRIVAN) infusion Intravenous, CONTINUOUS PRN, Starting on Tue05/12/18 at 0845, Until Tue05/12/18 at 1031, Anesthesia Intra-op, Routine Rate/Dose Change 05/12/2018 10:09 AM EST 50 mcg/kg/min 26.9 mL/hr Rate/Dose Change 05/12/2018 9:35 AM EST 100 mcg/kg/min 53. 9 mL/hr Rate/Dose Change 05/12/2018 9:06 AM EST 125 mcg/kg/min 67. 4 mL/hr documented in this encounter Care Teams Petroleum Refinery Laborer Relationship Specialty Start Date End Date Nancy Jackson MD [address] [place] [address] PCP - General Family Medicine 02/16/18 documented as of this encounter
--- OUTSIDE RECORDS SUMMARY | 2024-05-04 11:07 | XMS_ITS | Encounter Summary ---
Author Organization [facility] Address [address] [place] [address] Care Team Providers Care Rn Bsn Name Role Phone Unavailable Primary Care Provider Unavailabl e Encounter Details Date Type Department Care Team (Late st Contact Info) Description 08/02/2003 Before PRISM Converted Visit (Maple) [facility] - Maple conversion [address] [place] [address] Dinora Rhodes MD [address] [phone] Social History Tobacco Use Types Packs/Day Years Used Date Smoking Tobacco: Never Assessed Comments Unknown Sex and Gender Information Value Date Recorded Sex Assigned at Not on file Legal Sex Female 18:18 EST Gender Identity Not on file Sexual Orientation Not on file documented as of this encounter Plan of Treatment Not on file documented as of this encounter Visit Diagnoses Not on filedocumented in this encounter
--- OUTSIDE RECORDS SUMMARY | 2024-05-04 11:07 | XMS_ITS | Encounter Summary ---
Author Organization [facility] Address [address] [place] [address] Care Team Providers Care Church Business Administrator Name Role Phone Suzan Bojorquez MD Primary Care Provider [phone] Encounter Details Date Type Department Care Team (Late st Contact Info) Description 11/26/2021 Lab Requisition [facility] Pathology & Laboratory Medicine - [facility] [address] [place] [address] Outr Resulting Lab, Provider Social History Tobacco Use Types Packs/Day Years [...] Procedure Name Priority Date/Time Associated Diagnosis Comments RHEUMATOID FACTOR Routine 11/26/2021 9:0 8 EDT ANTI NUCLEAR AB (TORRES), IFA Routine 11/26/2021 9:08 EDT documented in this encounter Results * RHEUMATOID FACTOR (11/26/2021 9:08 EDT) Rheumatoid Factor <8.6 <12.0 IU/mL 11/26/2021 21:59 EDT [facility] Blood VENOUS BLOOD / Unknown 11/26/2021 9:08 EDT 11/26/2021 21:19 EDT us Provider Outr Resulting Lab CHEMISTRY & BLOOD GA S ORDERABLES Final Result Performing Organization Address [facility] Co de Phone Number [facility] [address] [place] [address] * ANTI NUCLEAR AB (TORRES), IFA (11/26/2021 9:08 EDT) TORRES Interpretation Negative Negative 2021 14:43 EDT [facility] Comment:No titer performed, TORRES Screen is negative. Blood VENOUS BLOOD / Unknown 11/26/2021 9:08 EDT 11/26/2021 21:19 EDT Narrative [facility] - 11/27/2021 14:43 EDT Results were obtained with the INOVA NOVA Lite HEp-2 TORRES Kit by indirect immunofluorescence. us Provider Outr Resulting Lab IMMUNOLOGY AND SEROL OGY ORDERABLES Final Result Performing Organization Address [facility] Co de Phone Number [facility] [address] [place] [address] documented in this encounter Visit Diagnoses Not on filedocumented in this encounter Care Teams Church Business Administrator Relationship Specialty Start Date End Date Suzan Bojorquez MD [address] [place] [phone] PCP - General 01/28/15 documented as of this encounter
--- OUTSIDE RECORDS SUMMARY | 2024-05-04 11:07 | XMS_ITS | Referral Summary ---
Author Organization [facility] Address [address] [place] [address] Care Team Providers Care Graphic Production Artist Name Role Phone Suzan Bojorquez MD Primary Care Provider Social History Tobacco Use Types Packs/Day Years Used Date Smoking Tobacco: Never Assessed Interpersonal Safety Answer Date Record ed Physically Hurt Never 11/04/2019 Verbally Threaten Not on file 11/04/2019 Comments Unknown Sex and Gender Information Value Date Recorded Sex Assigned at Not on file Legal Sex Female 18:18 EST Gender Identity Not on file Sexual Orientation Not on file Plan of Treatment Not on file Care Teams Graphic Production Artist Relationship Specialty Start Date End Date Suzan Bojorquez MD [address] [place] [phone] PCP - General 01/28/15
--- OUTSIDE RECORDS SUMMARY | 2024-05-04 11:07 | XMS_ITS | Encounter Summary ---
Author Organization [facility] Address [address] [place] [address] Care Team Providers Care Park Ranger Name Role Phone Unavailable Primary Care Provider Unavailabl e Encounter Details Date Type Department Care Team (Latest Contact Info) Description 07/31/2003 8:06 EDT - 07/31/2003 11:59 EDT Hospital Encounter [facility] [address] [place] [address] Clara Vila MD [address] [place] [phone] Discharge Disposition: Auto Discharge Social History Tobacco Use Types Packs/Day Years Used Date Smoking Tobacco: Never Assessed Comments Unknown Sex and Gender Information Value Date Recorded Sex Assigned at Not on file Legal Sex Female 18:18 EST Gender Identity Not on file Sexual Orientation Not on file documented as of this encounter Discharge Disposition Disposition Code Departure Means Destination Auto Discharge documented in this encounter Plan of Treatment Not on file documented as of this encounter Procedures Procedure Name Priority Date/Time Associated Diagnosis Comments CYTOPATHOLOGY Routine 10/10/2007 0:00 EDT CYTOPATHOLOGY Routine 10/10/2007 0:00 EDT SURGICAL PATHOLOGY Routine 07/31/2003 0:00 EDT documented in this encounter Results * CYTOPATHOLOGY (10/10/2007 0:00 EDT) Pathology Report: CYTOPATHOLOGY REPORT Reports generated via electronic interface contain original data; however they are lacking the format of the original report. Caution should be taken when reading/interpreti ng unformatted reports. Name: ? JENNIFER JOHANSEN ? Accession #: ? [id number] : ? 1965 (Age: 42) ??F ?Collect Date: ? 10/10/2007 Location: ? [facility] ? Receive Date: ? 10/11/2007 Provider: ?FREDRICK JUNIOR NP Copy to: ? Specimen/Source: ?ThinPrep Pap Test, Cervix/Endocervix, processed on [employer] ThinPrep Imaging System, with manual evaluation Last Menstrual Period: ? 09/09 Hormonal/Contracep tive Status: ? Orthotricyclen: Lo Other: ? HPVA - HPV testing requested if ASC-US on the current ThinPrep Pap test. ? SPECIMEN ADEQUACY ? Satisfactory for Evaluation - transformation zone component present GENERAL CATEGORIZATION ? Negative for Intraepithelial Lesion or Malignancy ? Document reviewed and electronically signed by: ? SHASHA Nguyen(ASCP) ? Report Date: ??10/19/2007 07:45 End of Report [facility] 10/10/2007 10/11/2007 us Fredrick Junior NP PATHOLOGY ORDERABLES Final R esult [facility] [address] [place] [address] * CYTOPATHOLOGY (10/10/2007 0:00 EDT) Pathology Report: CYTOPATHOLOGY REPORT ? Reports generated via electronic interface contain original data; ? however they are lacking the format of the original report. ? Caution should be taken when reading/interpreti ng unformatted reports. ? Name: ? JENNIFER JOHANSEN ? Accession #: ? [id number] ? : ? 1965 (Age: 42) ??F ?Collect Date: ? 10/10/2007 ? Location: ? [facility] ? Receive Date: ? 10/11/2007 ? Provider: ?FREDRICK JUNIOR MANAGER DESKTOP ? Copy to: ? Specimen/Source: ?ThinPrep Pap Test, Cervix/Endocervix, processed on [employer] ThinPrep Imaging System, with manual evaluation ? Last Menstrual Period: ? 6/08 ? Hormonal/Contracep tive Status: ? Orthotricyclen: Lo ? Other: ? HPVA - HPV testing requested if ASC-US on the current ThinPrep Pap test. ? SPECIMEN ADEQUACY ? Satisfactory for Evaluation ? - transformation zone component present ? GENERAL CATEGORIZATION ? Negative for Intraepithelial Lesion or Malignancy ? Document reviewed and electronically signed by: ? Beatriz Verville,CT(ASCP) ? Report Date: ??10/19/2007 07:45 ? End of Report ? [facility] 10/10/2007 10/11/2007 us Fredrick Junior NP PATHOLOGY ORDERABLES Final R esult [facility] [address] [place] [address] * SURGICAL PATHOLOGY (07/31/2003 0:00 EDT) Pathology Report: SURGICAL PATHOLOGY REPORT Reports generated via electronic interface contain original data; however they are lacking the format of the original report. Caution should be taken when reading/interpreti ng unformatted reports. Name: ? JENNIFER JOHANSEN ? Accession #: ? [id number] ? : ? 1965 (Age: 37) ??F ? Collect Date: ? 07/31/2003 ? Location: ? [facility] ? Receive Date: ? 07/31/2003 ? Provider: CLARA VILA MD Copy to: CLARA PANDEY MD ? Final Pathologic Diagnosis: ? Lacrimal sac, posterior, biopsy: - Fibrous tissue with acute and chronic inflammation and crush artifact. Document reviewed and electronically signed by: Kera Suárez MD Report ??Date: 08/02/2003 12:48 By the signature above, the attending physician certifies that he/she has personally conducted a gross and/or microscopic examination of the described specimens and rendered or confirmed the above diagnosis. Specimen(s) Received: ? Posterior lacrimal sac Clinical History: ? ACQ nasolacrimal stenosis Gross Description: ? Received in normal saline labelled Johansen and posterior lacrimal sac are two portions of conde-white to conde-pink tissue, which measures 0.2 x 0.1 x 0.1 cm and 0.4 x 0.3 x 0.1 cm. ??The specimen is submitted entirely as one cassette. (Dr. Walker)/samson End of Report [facility] 07/31/2003 07/31/2003 15: 04 EDT us Clara Vila MD PATHOLOGY ORDERABLES Final R esult [facility] [address] [place] [address] documented in this encounter Visit Diagnoses Not on filedocumented in this encounter
--- OUTSIDE RECORDS SUMMARY | 2024-05-04 11:07 | XMS_ITS | Encounter Summary ---
Author Organization [facility] Address [address] [place] [address] Care Team Providers Care Paper Machine Operator Name Role Phone Unavailable Primary Care Provider Unavailabl e Encounter Details Date Type Department Care Team (Late st Contact Info) Description 11/22/2011 Results Only [facility] Laboratory Services - [facility] [address] [place] [address] Fredrick Junior, CHELSEY [address] [place] [phone] Social History Tobacco Use Types Packs/Day Years [...] Procedure Name Priority Date/Time Associated Diagnosis Comments PAP TEST- RESULT ONLY Routine 11/22/2011 0:00 EDT documented in this encounter Results * PAP TEST- RESULT ONLY (11/22/2011 0:00 EDT) Pathology Report: CYTOPATHOLOGY REPORT Reports generated via electronic interface contain original data; however they are lacking the format of the original report. Caution should be taken when reading/interpreti ng unformatted reports. Name: ? ELENO JENNIFER ? Accession #: ? [id number] : ? 1965 (Age: 46) ??F ?Collect Date: ? 11/22/2011 Location: ? [facility] ? Receive Date: ? 11/24/2011 Provider: ?FREDRICK JUNIOR CLIP WRAPPER Copy to: ? Specimen/Source: ?Pap Test, Cervix/Endocervix, ThinPrep Imaging System with manual evaluation Last Menstrual Period: ? 11/18/11 Hormonal/Contracep tive Status: ? Control Pills ? SPECIMEN ADEQUACY ? Satisfactory for Evaluation - transformation zone component present GENERAL CATEGORIZATION ? Negative for Intraepithelial Lesion or Malignancy INTERPRETATION ? Fungal organisms present morphologically consistent with Joyce species. ? Document reviewed and electronically signed by: ? SHASHA Wilson(ASCP) ? Report Date: ??12/01/2011 08:38 End of Report [facility] 11/22/2011 11/24/2011 us Fredrick Junior NP PATHOLOGY ORDERABLES Final R esult [facility] [address] [place] [address] documented in this encounter Visit Diagnoses Not on filedocumented in this encounter
--- OUTSIDE RECORDS SUMMARY | 2024-05-04 11:07 | XMS_ITS | Encounter Summary ---
Author Organization [facility] Address [address] [place] [address] Care Team Providers Care Ehs Teacher Name Role Phone Unavailable Primary Care Provider Unavailabl e Encounter Details Date Type Department Care Team (Late st Contact Info) Description 02/19/2000 Results Only [facility] - Maple conversion [address] [place] [address] Chaya Crespo, [facility] [address] [address] Social History Tobacco Use Types Packs/Day Years [...] Priority Date/Time Associated Diagnosis Comments CYTOPATHOLOGY Routine 02/19/2000 0:00 EST documented in this encounter Results * CYTOPATHOLOGY (02/19/2000 0:00 EST) Pathology Report: CYTOPATHOLOGY REPORT Reports generated via electronic interface contain original data; however they are lacking the format of the original report. Caution should be taken when reading/interpreti ng unformatted reports. Name: ? JENNIFER JOHANSEN ? Accession #: ? [id number] : ? 1965 (Age: 34) ??F ?Collect Date: ? 02/19/2000 Location: ? [facility] ? Receive Date: ? 02/22/2000 Provider: ?CHAYA CRESPO DAYCARE WORKER Copy to: ? Specimen/Source: ?ThinPrep Pap Test, Cervix/Endocervix Last Menstrual Period: ? 02/05/00 Hormonal/Contracep tive Status: ? Oral contraceptives ? SPECIMEN ADEQUACY ? Satisfactory for evaluation. GENERAL CATEGORIZATION ? Within Normal Limits ? Document reviewed and electronically signed by: ? SHASHA Milner(ASCP) ? Report Date: ??03/01/2000 13:24 End of Report [facility] 02/19/2000 02/22/2000 us Chaya Crespo DAYCARE WORKER PATHOLOGY ORDERABLES Final R esult [facility] [address] [place] [address] documented in this encounter Visit Diagnoses Not on filedocumented in this encounter
--- OUTSIDE RECORDS SUMMARY | 2024-05-04 11:07 | XMS_ITS | Encounter Summary ---
Author Organization [facility] Address [address] [place] [address] Care Team Providers Care Drug Abuse Technician Name Role Phone Suzan Bojorquez MD Primary Care Provider [phone] Encounter Details Date Type Department Care Team (Latest Contact Info) Description 12/27/2017 10:49 EDT - 12/27/2017 23:59 EDT Hospital Encounter [address] [address] Unknown, Provider, MD Discharge Disposition: Home or Self Care Social History Tobacco Use Types Packs/Day Years Used Date Smoking Tobacco: Never Assessed Comments Unknown Sex and Gender Information Value Date Recorded Sex Assigned at Not on file Legal Sex Female 18:18 EST Gender Identity Not on file Sexual Orientation Not on file documented as of this encounter Discharge Disposition Disposition Code Departure Means Destination Home or Self Senior Living documented in this encounter Plan of Treatment Not on file documented as of this encounter Visit Diagnoses Not on filedocumented in this encounter Care Teams Drug Abuse Technician Relationship Specialty Start Date End Date Suzan Bojorquez MD [address] [place] [phone] PCP - General 01/28/15 documented as of this encounter
--- OUTSIDE RECORDS SUMMARY | 2024-05-04 11:07 | XMS_ITS | Encounter Summary ---
Author Organization [facility] Address [address] [place] [address] Care Team Providers Care Electrical Engineering Manager Name Role Phone Suzan Bojorquez MD Primary Care Provider [phone] Encounter Details Date Type Department Care Team (Late st Contact Info) Description 12/27/2017 Results Only [facility]- [facility] [phone] Marcy Chris MD [address] [place] [address] [place] [address] Social History Tobacco Use Types Packs/Day Years [...] Priority Date/Time Associated Diagnosis Comments SURGICAL PATHOLOGY Routine 12/27/2017 19 :24 EDT documented in this encounter Results * SURGICAL PATHOLOGY (12/27/2017 19:24 EDT) Pathology Report: SURGICAL PATHOLOGY REPORT Reports generated via electronic interface contain original data; however they are lacking the format of the original report. Caution should be taken when reading/interpret ing unformatted reports. Name: ? KAT JENNIFER Painter ? Accession #: ? [id number] ? : ? 1965 (Age: 52) ??F ? Collect Date: ? 12/27/2017 ? Location: ? [facility] ? Receive Date: ? 12/27/2017 ? Provider: MARCY CHRIS MD Copy to: THOMAS DELANEY MD ? Final Pathologic Diagnosis: ENDOMETRIUM/CERVI X, CURETTAGE: - Predominantly mucus with fragments of ectocervical squamous epithelium and scant endocervical glandular epithelium. - No definitive endometrial tissue seen. Document reviewed and electronically signed by: Kera Suárez MD Report ??Date: 12/30/2017 06:24 By the signature above, the attending physician certifies that he/she has personally conducted a gross and/or microscopic examination of the described specimens and rendered or confirmed the above diagnosis. Specimen(s) Received: Endometrial/cervi win curettings Clinical History: Postmenopausal bleeding Gross Description: ? Received in formalin labelled with proper patient identification (initials R, D) and endometrial curettings is an aggregate of blood-tinged mucus admixed with red-brown tissue fragments and clotted blood (6.0 x 5.0 x 0.5 cm). Submitted in toto in blocks 1-10. REINALDO Kelly (ASCP) 12/28/2017 8:53 AM End of Report [facility] 12/27/2017 19:2 4 EDT 12/27/2017 19:24 EDT us Marcy Chris MD PATHOLOGY ORDERABLES Final Resu lt [facility] [address] [place] [address] documented in this encounter Visit Diagnoses Not on filedocumented in this encounter Care Teams Electrical Engineering Manager Relationship Specialty Start Date End Date Suzan Bojorquez MD [address] [place] [address] [place] [phone] PCP - General 01/28/15 documented as of this encounter
--- OUTSIDE RECORDS SUMMARY | 2024-05-04 11:07 | XMS_ITS | Encounter Summary ---
Author Organization [facility] Address [address] [place] [address] Care Team Providers Care Group Home Worker Name Role Phone Unavailable Primary Care Provider Unavailabl e Encounter Details Date Type Department Care Team (Late st Contact Info) Description 03/25/2006 Results Only [facility] - Maple conversion [address] [place] [address] Raza Mcintosh MD [address] [place] [address] Social History Tobacco Use Types Packs/Day Years [...] Date/Time Associated Diagnosis Comments SURGICAL PATHOLOGY Routine 03/25/2006 0:00 EST documented in this encounter Results * SURGICAL PATHOLOGY (03/25/2006 0:00 EST) Pathology Report: SURGICAL PATHOLOGY REPORT Reports generated via electronic interface contain original data; however they are lacking the format of the original report. Caution should be taken when reading/interpreti ng unformatted reports. Name: ? JENNIFER JOHANSEN ? Accession #: ? [id number] ? : ? 1965 (Age: 40) ??F ? Collect Date: ? 03/25/2006 ? Location: ? [facility] ? Receive Date: ? 03/26/2006 ? Provider: RAZA MCINTOSH MD Copy to: MANISHA ORTIZ MD ? Final Pathologic Diagnosis: ? Colon, sigmoid, segmental resection: 1. ??Diverticulitis with transmural acute inflammation and abscess formation. 2. ??Resection margins are viable. Document reviewed and electronically signed by: ERNESTO LOPEZ MD Report ??Date: 03/31/2006 15:52 By the signature above, the attending physician certifies that he/she has personally conducted a gross and/or microscopic examination of the described specimens and rendered or confirmed the above diagnosis. Specimen(s) Received: ? Sigmoid colon Clinical History: ? Recurrent lower abdominal pain, SOB, diverticulitis ??recent hosp admit, now for sigmoid colon resection. Gross Description: ? Received in formalin labelled Johansen and sigmoid colon is a previously opened 11.0 cm in length portion of colon which is markedly distorted due to fixation in a container. ??The bowel measures on average 4.5 cm in internal circumference, demonstrates an area of possible diverticulitis with a 1.2 x 1.2 cm area of fat necrosis in the underlying pericolonic adipose tissue. ??This area has suturing around the adipose tissue. ?? BLOCK REYNOLDS A1,A2 ?Sections adjacent to stapled suture line A3,A4 ?Area of diverticulosis and perforation A5 ?Section of uninvolved normal appearing colon (Dr. Tran)/[facility] End of Report [facility] 03/25/2006 03/26/2006 7:3 0 EST us Raza Mcintosh MD PATHOLOGY ORDERABLES Final Result Performing Organization Address City/State/[facility] Co de Phone Number [facility] [address] [place] [address] documented in this encounter Visit Diagnoses Not on filedocumented in this encounter
--- OUTSIDE RECORDS SUMMARY | 2024-05-04 11:07 | XMS_ITS | Encounter Summary ---
Author Organization [facility] Address [address] [place] [address] Care Team Providers Care Park Worker Name Role Phone Unavailable Primary Care Provider Unavailabl e Encounter Details Date Type Department Care Team (Late st Contact Info) Description 02/08/2005 Results Only [facility] - Maple conversion [address] [place] [address] Fredrick Gannon, CHELSEY [address] [place] [address] Social History Tobacco Use Types [...] Priority Date/Time Associated Diagnosis Comments CYTOPATHOLOGY Routine 02/08/2005 0:00 EST documented in this encounter Results * CYTOPATHOLOGY (02/08/2005 0:00 EST) Pathology Report: CYTOPATHOLOGY REPORT Reports generated via electronic interface contain original data; however they are lacking the format of the original report. Caution should be taken when reading/interpreti ng unformatted reports. Name: ? ELENO JENNIFER ? Accession #: ? [id number] : ? 1965 (Age: 39) ??F ?Collect Date: ? 02/08/2005 Location: ? [facility] ? Receive Date: ? 02/09/2005 Provider: ?FREDRICK GANNON INSPECTOR EXPERIMENTAL ASSEMBLY Copy to: ? Specimen/Source: ?ThinPrep Pap Test, Cervix/Endocervix, processed on swiftQueue ThinPrep Imaging System, with manual evaluation Last Menstrual Period: ? 12/24/04 Hormonal/Contracep tive Status: ? Control Pills: Mircette Other: ? Additional clinical information: ? biopsy HPVA - HPV testing requested if ASC-US on the current ThinPrep Pap test. ? SPECIMEN ADEQUACY ? Satisfactory for Evaluation - transformation zone component absent GENERAL CATEGORIZATION ? Negative for Intraepithelial Lesion or Malignancy ? Document reviewed and electronically signed by: ? KRISTIAN Craig(ASCP) ? Report Date: ??02/15/2005 10:37 End of Report [facility] 02/08/2005 02/09/2005 us Fredrick Gannon INSPECTOR EXPERIMENTAL ASSEMBLY PATHOLOGY ORDERABLES Final R esult [facility] [address] [place] [address] documented in this encounter Visit Diagnoses Not on filedocumented in this encounter
--- OUTSIDE RECORDS SUMMARY | 2024-05-04 11:07 | XMS_ITS | Encounter Summary ---
Author Organization [facility] Address [address] [place] [address] Care Team Providers Care Farm Demonstrator Name Role Phone Unavailable Primary Care Provider Unavailabl e Encounter Details Date Type Department Care Team (Late st Contact Info) Description 11/11/2009 Results Only [facility] Laboratory Services - [facility] [place] [address] [place] [address] Zayra Gannon, CHELSEY [address] [place] [address] Social History Tobacco Use Types [...] Name Priority Date/Time Associated Diagnosis Comments HPV DETECTION, HIGH RISK TYPES Routine 11/11/2009 13:50 EDT CYTOPATHOLOGY Routine 11/11/2009 0:00 EDT documented in this encounter Results * HUMAN PAPILLOMA VIRUS DNA TEST (11/11/2009 13:50 EDT) Specimen Description Cervix, ThinPrep vial [facility] Result Negative for HPV types 16, 18, 31, 33, 35, 39, 45, 51, 52, 56, 58, 59, and 68. [facility] Report Status Final 11/19/2009 [facility] 11/11/2009 13:5 0 EDT 11/17/2009 13:50 EDT us Zayra Gannon NP MICROBIOLOGY - GENERAL ORDER RADHA Final Result [facility] [address] [place] [address] * CYTOPATHOLOGY (11/11/2009 0:00 EDT) Pathology Report: CYTOPATHOLOGY REPORT ? Reports generated via electronic interface contain original data; ? however they are lacking the format of the original report. ? Caution should be taken when reading/interpreti ng unformatted reports. ? Name: ? JENNIFER JOHANSEN ? Accession #: ? [id number] ? : ? 1965 (Age: 44) ??F ?Collect Date: ? 11/11/2009 ? Location: ? [facility] ? Receive Date: ? 11/13/2009 ? Provider: ?ALCALA VERNON STAVE AND BOLT EQUALIZER ? Copy to: ? Specimen/Source: ?Pap Test, Cervix/Endocervix, ThinPrep Imaging System ? with manual evaluation ? Last Menstrual Period: ? 07/28/10 ? Hormonal/Contracep tive Status: ? Control Pills ? Treatment History: ? Cone biopsy ? Other: ? HPVDX - HPV testing requested regardless of diagnosis on current ThinPrep Pap ?? test. ? SPECIMEN ADEQUACY ? Satisfactory for Evaluation ? - transformation zone component present ? GENERAL CATEGORIZATION ? Negative for Intraepithelial Lesion or Malignancy ? Document reviewed and electronically signed by: ? Nancy Juan Jose, [place](ASCP) ? Report Date: ??11/17/2009 09:46 ? End of Report ? [facility] 11/11/2009 11/13/2009 us Zayra Gannon STAVE AND BOLT EQUALIZER PATHOLOGY ORDERABLES Final R esult [facility] [address] [place] [address] documented in this encounter Visit Diagnoses Not on filedocumented in this encounter
--- OUTSIDE RECORDS SUMMARY | 2024-05-04 11:07 | XMS_ITS | Encounter Summary ---
Author Organization [facility] Address [address] [place] [address] Care Team Providers Care Manuscripts Archivist Name Role Phone Unavailable Primary Care Provider Unavailabl e Encounter Details Date Type Department Care Team (Late st Contact Info) Description 11/16/2010 Results Only [facility] Laboratory Services - [facility] ([facility] [address] [place] [address] Zayra Gannon, CHELSEY [address] [place] [address] Social History Tobacco Use Types [...] Diagnosis Comments PAP TEST- RESULT ONLY Routine 11/16/2010 0:00 EDT documented in this encounter Results * PAP TEST- RESULT ONLY (11/16/2010 0:00 EDT) Pathology Report: CYTOPATHOLOGY REPORT ? Reports generated via electronic interface contain original data; ? however they are lacking the format of the original report. ? Caution should be taken when reading/interpreti ng unformatted reports. ? Name: ? JENNIFER JOHANSEN ? Accession #: ? [id number] ? : ? 1965 (Age: 45) ??F ?Collect Date: ? 11/16/2010 ? Location: ? [facility] ? Receive Date: ? 11/18/2010 ? Provider: ALCALA VERNON DOG HANDLER OR TRAINER ? Copy to: ? Final Report ? SPECIMEN ADEQUACY ? Satisfactory for Evaluation ? - transformation zone component absent ? GENERAL CATEGORIZATION ? Negative for Intraepithelial Lesion or Malignancy ? Last Menstural Period: 7/20/11 ? Hormonal/Contracep tive status: Control Pills: Trinessa 28 ? Specimen/Source: ??Pap Test, Cervix/Endocervix, ThinPrep Imaging System with ? manual evaluation ? Document reviewed and electronically signed by: ? Esau John, [place](ASCP) ? Report ??Date: 11/23/2010 13:02 ? HPV with Pap Test ? Date Ordered: ? 11/23/2010 ? Status: ?? Signed Out ?Date Complete: ? 11/25/2010 ? By: ??System Interface ? Date Reported: ? 11/25/2010 ? Interpretation ? RESULT: Negative for HPV types 16, 18, 31, 33, 35, 39, 45, 51, 52, ? 56, 58, 59, and 68. ? NHPV2 ? Comments ? Document reviewed and electronically signed by: ? System Interface ? Report date: 11/25/2010 ? By the signature above, the attending physician certifies that he/she has ? personally conducted a gross and/or microscopic examination of the described ? specimens and rendered or confirmed the above diagnosis. ? End of Report ? [facility] 11/16/2010 11/18/2010 us Zayra Gannon NP PATHOLOGY ORDERABLES Final R esult [facility] [address] [place] [address] documented in this encounter Visit Diagnoses Not on filedocumented in this encounter
--- OUTSIDE RECORDS SUMMARY | 2024-05-04 11:07 | XMS_ITS | Encounter Summary ---
Author Organization [facility] Address [address] [place] [address] Care Team Providers Care Rangeland Management Specialist Name Role Phone Suzan Bojorquez MD Primary Care Provider [phone] Encounter Details Date Type Department Care Team (Late st Contact Info) Description 03/14/2019 Lab Requisition [facility] Pathology & Laboratory Medicine - [address] [address] Unknown, Provider, Social History Tobacco Use Types Packs/Day Years [...] Procedure Name Priority Date/Time Associated Diagnosis Comments HOLD SST Routine 03/14/2019 17:04 EST MEASLES IGG AB Routine 03/14/2019 10:06 EST RUBELLA IGG ANTIBODY Routine 03/14/2019 10:06 EST VARICELLA IGG ANTIBODY Routine 03/14/2019 10:06 EST MUMPS ANTIBODY IGG Routine 03/14/2019 10 :06 EST documented in this encounter Results * HOLD SST (03/14/2019 17:04 EST) Hold Hold 03/14/2019 18:15 EST [facility] Blood VENOUS BLOOD / Unknown 03/14/2019 17:04 EST 03/14/2019 17:04 EST us Provider Unknown MD LAB INFO SERVICE AND SUPPORT & PHONE RESULT Final Result Performing Organization Address [facility] Co de Phone Number [facility] [address] [place] [phone] * MEASLES IGG AB (03/14/2019 10:06 EST) Measles IgG Ab Positive See Note 03/15/2019 11:38 EST [facility] Comment:Presence of detectab le measles virus IgG antibodies. Blood VENOUS BLOOD / Unknown 03/14/2019 10:06 EST 03/14/2019 17:04 EST us Provider Unknown MD IMMUNOLOGY AND SEROLOGY ORDE RABLES Final Result Performing Organization Address [facility] Co de Phone Number [facility] [address] [place] [phone] * VARICELLA IGG ANTIBODY (03/14/2019 10:06 EST) Varicella IgG Ab Positive See Note 03/15/2019 11:38 EST [facility] Comment:Presence of detectab le Varicella Zoster virus IgG antibodies. Blood VENOUS BLOOD / Unknown 03/14/2019 10:06 EST 03/14/2019 17:04 EST us Provider Unknown MD IMMUNOLOGY AND SEROLOGY ORDE RABLES Final Result Performing Organization Address [facility]/ZIP Co de Phone Number [facility] [address] [place] [phone] * MUMPS ANTIBODY IGG (03/14/2019 10:06 EST) Mumps Antibody IgG Positive See Note 03/15/2019 11:38 EST [facility] Comment:Presence of detectab le mumps virus IgG antibodies. Blood VENOUS BLOOD / Unknown 03/14/2019 10:06 EST 03/14/2019 17:04 EST us Provider Unknown MD IMMUNOLOGY AND SEROLOGY ORDE RABLES Final Result [facility] [address] [place] [address] * RUBELLA IGG ANTIBODY (03/14/2019 10:06 EST) Rubella IgG Ab Positive See Note 03/15/2019 11:38 EST [facility] Comment:Positive for IgG ant ibodies to Rubella virus. Blood VENOUS BLOOD / Unknown 03/14/2019 10:06 EST 03/14/2019 17:04 EST us Provider Unknown CHEMISTRY & BLOOD GAS ORDERA BLES Final Result Performing Organization Address [facility] Co de Phone Number [facility] [address] [place] [address] documented in this encounter Visit Diagnoses Not on filedocumented in this encounter Care Teams Rangeland Management Specialist Relationship Specialty Start Date End Date Suzan Bojorquez MD [address] [place] [phone] PCP - General 01/28/15 documented as of this encounter
--- OUTSIDE RECORDS SUMMARY | 2024-05-04 11:07 | XMS_ITS | Encounter Summary ---
Author Organization [facility] Address [address] [place] [address] Care Team Providers Care Outsole Tacker Name Role Phone Suzan Bojorquez MD Primary Care Provider [phone] Encounter Details Date Type Department Care Team (Late st Contact Info) Description 03/14/2019 Lab Requisition [facility] Pathology & Laboratory Medicine - [address] [address] Unknown, Provider, Social History Tobacco Use Types [...] Procedure Name Priority Date/Time Associated Diagnosis Comments HEPATITIS B SURFACE ANTIBODY Routine 03/14/2019 10:06 EST documented in this encounter Results * HEPATITIS B SURFACE ANTIBODY (03/14/2019 10:06 EST) Hep B Surface Ab, Quantitative 4.2 See Note mIU/mL 03/15/2019 16:13 EST [facility] Comment: Reference Range for Hep B Surface Ab, Quant: Positive: >= 10.0 mIU/mL Negative: ??< 10.0 mIU/mL Patient is presumed to not be immune to infection with Hepatitis B Virus. Hep B Surface Ab, Qualitative Negative See Note 03/15/2019 16:13 EST [facility] Comment: Reference Range for Hep B Surface Ab, Qual: Unvaccinated: ??Negative Vaccinated: ??Positive Blood VENOUS BLOOD / Unknown 03/14/2019 10:06 EST 03/14/2019 17:04 EST us Provider Unknown CHEMISTRY & BLOOD GAS ORDERA BLES Final Result [facility] [address] [place] [address] documented in this encounter Visit Diagnoses Not on filedocumented in this encounter Care Teams Outsole Tacker Relationship Specialty Start Date End Date Suzan Bojorquez MD [address] [place] [phone] PCP - General 01/28/15 documented as of this encounter
--- OUTSIDE RECORDS SUMMARY | 2024-05-04 11:07 | XMS_ITS | Encounter Summary ---
Author Organization [facility] Address [address] [place] [address] Care Team Providers Care Day Care Teacher Name Role Phone Suzan Bojorquez MD Primary Care Provider [phone] Encounter Details Date Type Department Care Team ([facility] st Contact Info) Description 01/24/2015 Results Only [facility]- [facility] [phone] Nancy Jackson MD [address], [place] [address] Social History Tobacco Use Types Packs/Day Years [...] Diagnosis Comments PAP TEST- RESULT ONLY Routine 01/24/2015 0:00 EDT documented in this encounter Results * PAP TEST- RESULT ONLY (01/24/2015 0:00 EDT) Pathology Report: CYTOPATHOLOGY REPORT Reports generated via electronic interface contain original data; however they are lacking the format of the original report. Caution should be taken when reading/interpreti ng unformatted reports. Name: ? JENNIFER WHITFIELD ? Accession #: ? [id number] ? : ? 1965 (Age: 49) ??F ?Collect Date: ? 01/24/2015 ? Location: ? [facility] ? Receive Date: ? 01/28/2015 ? Provider: NANCY JACKSON MD Copy to: ? Final Report SPECIMEN ADEQUACY ? Satisfactory for Evaluation - transformation zone component present GENERAL CATEGORIZATION ? Negative for Intraepithelial Lesion or Malignancy ?? Treatment History: Cervical biopsy: history of Other: Additional clinical information: never had HPV testing done, not sure an adequate Endocervical sample obtained Specimen/Source: ??Pap Test, Cervix/Endocervix, ThinPrep Imaging System with manual evaluation Document reviewed and electronically signed by: ? Era Warner, SHASHA(ASCP) ? Report ??Date: 01/29/2015 10:32 HPV with Pap Test ? Date Ordered: ? 01/29/2015 ? Status: ?? Signed Out ?Date Complete: ? 02/01/2015 ? By: ??System Interface ? Date Reported: ? 02/01/2015 ? Interpretation RESULT: Negative for HPV. No E6 or E7 mRNA is detected from HPV types 16,18,31,33,35, 39,45,51,52,56,58, 59,66, and 68 by diesel instructor mediated amplification. Comments Document reviewed and electronically signed by: ? System Interface ? Report date: 02/01/2015 By the signature above, the attending physician certifies that he/she has personally conducted a gross and/or microscopic examination of the described specimens and rendered or confirmed the above diagnosis. End of Report [facility] 01/24/2015 01/28/2015 us Nancy Jackson MD PATHOLOGY ORDERABLES Final Resu lt [facility] [address] [place] [address] documented in this encounter Visit Diagnoses Not on filedocumented in this encounter Care Teams Day Care Teacher Relationship Specialty Start Date End Date Suzan Bojorquez MD [address] [place] [phone] PCP - General 01/28/15 documented as of this encounter
--- OUTSIDE RECORDS SUMMARY | 2024-05-04 11:07 | XMS_ITS | Encounter Summary ---
Author Organization Health system Address [address] [place] [address] Care Team Providers Care Machine Scallop Cutter Name Role Phone Suzan Bojorquez MD Primary Care Provider [phone] Encounter Details Date Type Department Care Team (Late st Contact Info) Description 11/26/2020 Lab Requisition [facility] Pathology & Laboratory Medicine - [facility] [address] [place] [address] Outr Resulting Lab, Provider Social History Tobacco [...] Procedure Name Priority Date/Time Associated Diagnosis Comments VARICELLA IGG ANTIBODY Routine 11/25/2020 9:00 EDT documented in this encounter Results * VARICELLA IGG ANTIBODY (11/25/2020 9:00 EDT) Varicella IgG Ab Positive See Note 11/27/2020 10:11 EDT [facility] Comment:Presence of detectab le Varicella Zoster virus IgG antibodies. Blood VENOUS BLOOD / Unknown 11/25/2020 9:00 EDT 11/26/2020 15:57 EDT us Provider Outr Resulting Lab IMMUNOLOGY AND SEROL OGY ORDERABLES Final Result [facility] [address] [place] [address] documented in this encounter Visit Diagnoses Not on filedocumented in this encounter Care Teams Machine Scallop Cutter Relationship Specialty Start Date End Date Suzan Bojorquez MD [address] [place] [phone] PCP - General 01/28/15 documented as of this encounter
--- OUTSIDE RECORDS SUMMARY | 2024-05-04 11:07 | XMS_ITS | Encounter Summary ---
Author Organization [facility] Address [address] [place] [address] Care Team Providers Care Grocery Store Associate Name Role Phone Suzan Bojorquez MD Primary Care Provider [phone] Encounter Details Date Type Department Care Team (Late st Contact Info) Description 03/15/2019 Lab Requisition [facility] Pathology & Laboratory Medicine - [facility] [address] [place] [address] Unknown, Provider, Social History Tobacco Use Types [...] Procedure Name Priority Date/Time Associated Diagnosis Comments QUANTIFERON TB GOLD PLUS Routine 03/14/2019 10:06 EST documented in this encounter Results * QUANTIFERON TB GOLD PLUS (03/14/2019 10:06 EST) Pathologist [facility] Quantiferon Interpretation Negative Negative 03/16/2019 14:32 EST [facility] Comment: No interferon-gamma response to M. tuberculosis antigens was detected. ??Infection with M. tuberculosis is unlikely. A single negative result does not exclude infection with M. tuberculosis. ??In patients at high risk for M. tuberculosis infection, a second test should be considered in accordance with the 2017 ATS/IDSA/CDC Clinical Practice Guidelines for Diagnosis of Tuberculosis in Adults and Children. [Sharmila RO et. al. Clin. Infect. Dis. 2017:64 (2) ??: 111-115]. Results were obtained with the [employer]agen QuantiFERON TB Gold Plus SHERRIE. TB1 Ag minus Nil 0.01 IU/ml 03/16/20 19 14:32 EST [facility] TB2 Ag minus Nil 0.03 IU/mL 03/16/20 19 14:32 EST [facility] Blood VENOUS BLOOD / Unknown 03/14/2019 10:06 EST 03/15/2019 21:26 EST Narrative [facility] - 03/16/2019 14:32 EST Results were obtained with the [employer]agen QuantiFERON-TB Gold Plus SHERRIE. us Provider Unknown CHEMISTRY & BLOOD GAS ORDERA BLES Final Result [facility] [address] [place] [address] documented in this encounter Visit Diagnoses Not on filedocumented in this encounter Care Teams Grocery Store Associate Relationship Specialty Start Date End Date Suzan Bojorquez MD [address] [place] [phone] PCP - General 01/28/15 documented as of this encounter
== END 2024-05-04 10:55 | disposition home or self-care (01) ==
LOC: NCHCN 10:54
PROVIDERS: PCP Family Medicine; Visit Provider Family Medicine
DX: Z11.51 Encounter for screening for human papillomavirus (HPV) (principal); Z01.419 Encounter for gynecological examination (general) (routine) without abnormal findings
CPT/HCPCS: 88142; 87624

== ENCOUNTER 2024-05-17 02:43 | Outpatient (CLI) | payer OTHER, SELFPAY ==
--- NOTE | 2024-05-17 07:40 | DI.MAMMO_ITS ---
Exam(s) MAMMO SCREENING EXAM: MAMMO SCREENING CLINICAL HISTORY: SCREENING, Z12.31. TECHNIQUE: Bilateral full field digital CC and MLO mammographic images were obtained with 3D tomosyn thesis and utilizing computer aided detection (CAD). COMPARISON: Prior mammograms were reviewed. Prior ultrasound also reviewed. FINDINGS: No CAD designations. Previously present nodule in the left breast is no longer seen. This was shown to be a 5 millimeter microcyst on prior ultrasound examinations. No new left breast findings. In the opposite-right breast there is a new tiny nodular density located approximately 8 cm in from t he nipple on the CC view, slightly lateral of center and measuring 2 mm. This persists on 3D imaging . There are no malignant-appearing microcalcification groups is region or elsewhere in either breast There is no significant architectural distortion nor skin thickening-retraction. IMPRESSION: 1. No radiographic evidence of malignancy in left breast. 2. New 2 millimeter nodule in the right breast. Spot compression view and ultrasound recommended. BI-RADS Category 0 - Incomplete: Need additional imaging evaluation Breast Density - Category B - Scattered areas of fibroglandular density Breast density Category C or D implies that the patient has dense breast tissue. Dense breast tissue can make it harder to find cancer on a mammogram. Dense breast tissue is also associated with an incr eased risk of breast cancer. This information about the result of the mammogram report was provided to the patient to raise their awareness. Use this report when you speak with the patient about their risks for breast cancer, which includes their family history. At that time, you may recommend additional screening tests (Ultrasoun d or MRI) as these tests may add significant information. A negative radiographic report should not delay biopsy if a dominant or clinically suspicious mass is present. Up to ten percent of cancers are not identified on mammography. A negative report may reinforce clinical impression. Adenosis and dense breasts may obscure an underlying neoplasm. False positive reports average 6 to 10%. Patient will receive a letter notifying them of these results.
== END 2024-05-17 03:03 ==
LOC: DI 02:43
PROVIDERS: PCP Family Medicine; Visit Provider Family Medicine
DX: Z12.31 Encounter for screening mammogram for malignant neoplasm of breast (principal); R92.323 Mammographic fibroglandular density, bilateral breasts
CPT/HCPCS: 77063; 77067

== ENCOUNTER 2024-05-22 09:08 | Outpatient (CLI) | payer OTHER, SELFPAY ==
[2024-05-22 09:19] LABS: Hemoglobin A1C 5.6 % (<5.7)
[2024-05-22 09:46] LABS: Calculated LDL 125 mg/dL (<100); Cholesterol 200 mg/dL (<200); HDL Cholesterol 62 mg/dL (40-60); Triglyceride 65 mg/dL (<150)
== END 2024-05-22 09:09 | disposition home or self-care (01) ==
LOC: LBO 09:08
PROVIDERS: PCP Family Medicine; Visit Provider Family Medicine
DX: Z00.00 Encounter for general adult medical examination without abnormal findings (principal)
CPT/HCPCS: 36415; 80061; 83036; 84443

== ENCOUNTER 2024-05-25 00:27 | Outpatient (CLI) | payer OTHER, SELFPAY ==
--- NOTE | 2024-05-25 | DI.US_ITS ---
Exam(s) MG MAMMO SCREEN CALL BACK UNI US BREAST RT LIMITED EXAM: MG MAMMO SCREEN CALL BACK UNI and U/S breast RT limited CLINICAL HISTORY: NEW 2 MILLIMETER NODULE IN RT BREAST R92.8 ABNL MAMMO. TECHNIQUE: Craniocaudal and mediolateral oblique Full Field Digital Mammography views of the right b reast with Computer Aided Diagnosis followed by Tomosynthesis and limited right breast ultrasound. COMPARISON: Comparison is made with prior examinations. FINDINGS: Mammography/Tomosynthesis: Masses/Architectural Distortion: The tiny nodule persists on the additional view. It measures less t morales 2 mm. No suspicious masses or areas of architectural distortion are seen. Microcalcifictions: No suspicious pleomorphic-type are seen. Skin Thickening/Nipple Retraction: None. Limited right breast US: Echotexture: Normal appearance of the glandular tissue. Shadowing: No suspicious foci. Cyst: None. Solid lesions: None seen. Ductal dilation: None. IMPRESSION: 1. No definite evidence of malignancy is noted. 2. A six-month follow-up right mammogram is requested for re-evaluation. 3. The findings were discussed with the patient on the date of the examination. BI-RADS Category 3 - 6 month - Probably Benign Finding: Recommend follow-up imaging in 6 months Breast Density - Category B - Scattered areas of fibroglandular density Breast density Category C or D implies that the patient has dense breast tissue. Dense breast tissue can make it harder to find cancer on a mammogram. Dense breast tissue is also associated with an incr eased risk of breast cancer. This information about the result of the mammogram report was provided to the patient to raise their awareness. Use this report when you speak with the patient about their risks for breast cancer, which includes their family history. At that time, you may recommend additional screening tests (Ultrasoun d or MRI) as these tests may add significant information. A negative radiographic report should not delay biopsy if a dominant or clinically suspicious mass is present. Up to ten percent of cancers are not identified on mammography. A negative report may reinforce clinical impression. Adenosis and dense breasts may obscure an underlying neoplasm. False positive reports average 6 to 10%. Patient will receive a letter notifying them of these results.
== END 2024-05-25 00:47 ==
LOC: DI 00:27
PROVIDERS: PCP Family Medicine; Visit Provider Family Medicine
DX: Z12.31 Encounter for screening mammogram for malignant neoplasm of breast (principal); R92.8 Other abnormal and inconclusive findings on diagnostic imaging of breast; R92.323 Mammographic fibroglandular density, bilateral breasts
CPT/HCPCS: 76642; 77063; 77067

== ENCOUNTER 2024-11-20 01:32 | Outpatient (CLI) | payer OTHER, SELFPAY ==
--- NOTE | 2024-11-20 10:00 | DI.MAMMO_ITS ---
Exam(s) MAMMO DIAGNOSTIC UNI EXAM: MAMMO DIAGNOSTIC UNI-RIGHT CLINICAL HISTORY: ABNORMAL MAMM, 6 MO F/U RIGHT R92.8. TECHNIQUE: Unilateral right breast CC and MLO mammographic images were obtained with 3D tomosynthesis technique and utilizing computer aided detection (CAD). COMPARISON: Prior mammograms were reviewed, the most recent being May 2024.. Prior ultrasound May 2024 is also reviewed. FINDINGS: There has been no significant change in the appearance and distribution of the fibroglandular tissue of the right breast. Previously described tiny nodule has not increased in size; the actual appears even smaller. This was negative on prior ultrasound examination. There are no new spiculated masses nor malignant-appearing microcalcification groups in the right breast and there is no new architectural distortion or skin thickening-retraction. IMPRESSION: Stable benign right breast finding. No radiographic evidence of malignancy Appropriate follow-up is to keep this patient on a yearly mammogram schedule, this implying that her next bilateral mammogram would be in May 2025, with earlier imaging if a self detected breast change is noted. The patient was informed of the findings and follow-up recommendations by myself prior to leaving the department today. BI-RADS Category 2 - Benign Findings Breast Density - Category B - There are scattered areas of fibroglandular density. Breast density Category C or D implies that the patient has dense breast tissue. Dense breast tissue can make it harder to find cancer on a mammogram. Dense breast tissue is also associated with an increased risk of breast cancer. This information about the result of the mammogram report was provided to the patient to raise their awareness. Use this report when you speak with the patient about their risks for breast cancer, which includes their family history. At that time, you may recommend additional screening tests (Ultrasound or MRI) as these tests may add significant information. A negative radiographic report should not delay biopsy if a dominant or clinically suspicious mass is present. Up to ten percent of cancers are not identified on mammography. A negative report may reinforce clinical impression. Adenosis and dense breasts may obscure an underlying neoplasm. False positive reports average 6 to 10%. Patient will receive a letter notifying them of these results.
== END 2024-11-20 01:52 ==
LOC: DI 01:32
PROVIDERS: PCP Family Medicine; Visit Provider Family Medicine
DX: Z12.31 Encounter for screening mammogram for malignant neoplasm of breast (principal); R92.321 Mammographic fibroglandular density, right breast
CPT/HCPCS: 77061; 77065; G0279